=== PATIENT | male | born 1960 ===

== ENCOUNTER 2023-08-08 20:30 | Inpatient (IN) | payer OTHER, SELFPAY ==
--- NOTE | ~2023-08-08 | XR_ITS ---
EXAMINATION: XR CHEST CLINICAL INFORMATION: Fall. Pain. COMPARISON: None available. TECHNIQUE: Frontal view of the chest was obtained. FINDINGS: Lung volumes are low. The cardiomediastinal silhouette is within normal limits. There has been a previous median sternotomy. There is a linear left lung base opacity. The lungs are otherwise clear. The bony structures and soft tissues are unremarkable. XR/XR chest 1V IMPRESSION: Linear left lung base opacity possibly atelectasis versus minimal pleural fluid with atelectasis. No other significant abnormality seen.
--- NOTE | ~2023-08-08 | CT_ITS ---
EXAMINATION: CT HEAD WITHOUT CONTRAST CT CERVICAL SPINE WITHOUT CONTRAST CLINICAL INFORMATION: Fall. Pain. COMPARISON: None available. TECHNIQUE: Contiguous axial imaging was performed through the head and cervical spine without intravenous administration of contrast. Sagittal and coronal reformatted images also obtained. This CT examination was performed using dose optimization techniques as appropriate, variously including the following: *Automated exposure control *Adjustment of mA and/or kV according to patient size (this includes techniques or standardized protocols for targeted exams where dose is matched to indication/reason for exam; i.e. extremities or head) *Use of iterative reconstruction technique DLP: 742.33 and 479.37 mGy-cm FINDINGS: There is cerebral volume loss with prominence of the lateral and the third ventricles. The cortical sulci are widened appropriately. The fourth ventricle and basal cisterns are normally outlined. There is mild bilateral periventricular and central white matter image attenuation. There is no acute territorial defect, hemorrhage or midline shift. The extra-axial spaces are unremarkable. Calvarium: Intact. Maxillofacial sinuses and mastoids: Clear as visualized. Cervical spine: The alignment is within normal limits. There is an anterior plate and vertebral body screws at C3-C4-C5. There is minimal diffuse cervical disc degenerative change with minimal posterior osteophyte formation and mild diffuse facet osteoarthritic hypertrophic change without significant spinal canal and with scattered multilevel mild neuroforaminal narrowing. There is no fracture. The soft tissues are unremarkable. The visualized upper lung bergeron are clear. CT/CT cervical spine wo IV con IMPRESSION: Cerebral volume loss and mild bilateral periventricular and central white matter diminished attenuation which is nonspecific but likely to represent microvascular disease. No acute intracranial abnormality.
--- NOTE | ~2023-08-08 | CT_ITS ---
EXAMINATION: CT LUMBAR SPINE WITHOUT CONTRAST CLINICAL INFORMATION: Fall. Pain. COMPARISON: None available. TECHNIQUE: Contiguous axial noncontrast CT scan images of the lumbar spine obtained. Sagittal and coronal reformatted images also obtained. This CT examination was performed using dose optimization techniques as appropriate, variously including the following: *Automated exposure control *Adjustment of mA and/or kV according to patient size (this includes techniques or standardized protocols for targeted exams where dose is matched to indication/reason for exam; i.e. extremities or head) *Use of iterative reconstruction technique DLP; 624.21 mGy-cm FINDINGS: The alignment is within normal limits. There is L4-S1 posterior fusion with pedicle screws and posterior rods in place as well as L4-L5 and L5-S1 disc spacers in place. The hardware is intact. An interspinous spacer is also seen at L3-L4. There is moderate L1-L2, L2-L3 and L3-L4 disc degenerative change and loss of disc space, endplate change, mild posterior osteophytes and disc bulging and associated with diffuse facet osteoarthritic hypertrophic change with multilevel mild spinal canal and multilevel [id number] neuroforaminal narrowing. The soft tissues are unremarkable. CT/CT lumbar spine wo IV con IMPRESSION: Postoperative and degenerative change of the lumbar spine. No evidence for fracture or malalignment
--- NOTE | ~2023-08-08 | XR_ITS ---
EXAMINATION: XR CHEST CLINICAL INFORMATION: Fever. Tachycardia. COMPARISON: None available. TECHNIQUE: 2 views of the chest were obtained. FINDINGS: The cardiac and mediastinal contours are stable. There is a prosthetic heart valve and median sternotomy wires. The lungs are clear. There is blunting of the bilateral bilateral costophrenic angles, left greater than right, questionable for small pleural effusions. No pneumothorax. Degenerative changes of the spine. XR/XR chest 2V IMPRESSION: Question small bilateral pleural effusions.
[2023-08-08 20:39] VITALS: BP 146/85; PULSE 111; O2SAT 98
[2023-08-08 21:29] VITALS: BP 155/90; PULSE 114; RESP 18; TEMP 36.8; O2SAT 94; BMI 28.3
--- NOTE | 2023-08-08 21:43 | ED_ITS ---
HPI - General Adult General Chief complaint: Fall Stated complaint: LOWER BACK PAIN Time Seen by Provider: 08/08/23 23:47 Source: patient Mode of arrival: ambulatory Limitations: no limitations History of Present Illness HPI narrative: Patient is a 72 year old male with past medical history of diabetes, he is able to provide that he takes metformin and warfarin, it is unclear why he takes warfarin, he does not have a full list of his medications with him. who presents emergency department for evaluation after a fall. Reportedly he fell getting out of bed this morning states that he tripped over his cane resulting in him striking his head on a chair sustaining a superficial laceration over the bridge of the nose. He states that he passed out. It is unclear for how long, he states that he looked at the clock, and it was a while but cannot provide a specific time. He states that he had a hard time getting up on his own so he was on the floor for a long time until he was able to get himself up. He reports that he lives alone. Related Data Home Medications Medication Instructions Recorded Confirmed aspirin 81 mg chewable tablet 1 tab PO DAILY 08/09/23 08/09/23 atorvastatin 40 mg tablet 40 mg PO DAILY 08/09/23 08/09/23 divalproex 125 mg tablet,delayed 125 mg PO TID 08/09/23 08/09/23 release divalproex 250 mg tablet,delayed 250 mg PO TID 08/09/23 08/09/23 release fenofibrate nanocrystallized 145 145 mg PO DAILY 08/09/23 08/09/23 mg tablet gabapentin 300 mg capsule 900 mg PO TID 08/09/23 08/09/23 glipizide 5 mg tablet 5 mg PO DAILY@0730 08/09/23 08/09/23 levetiracetam 500 mg tablet 500 mg PO BID 08/09/23 08/09/23 melatonin 3 mg tablet 6 mg PO BEDTIME 08/09/23 08/09/23 metformin 1,000 mg tablet 1,000 mg PO BID 08/09/23 08/09/23 mirtazapine 7.5 mg tablet 7.5 mg PO BEDTIME 08/09/23 08/09/23 nystatin 100,000 unit/gram topical 1 appl topical BID 08/09/23 08/09/23 powder (Nystop) olanzapine 20 mg tablet 20 mg PO BEDTIME 08/09/23 08/09/23 trazodone 100 mg tablet 200 mg PO BEDTIME 08/09/23 08/09/23 warfarin 4 mg tablet 4 mg PO DAILY 08/09/23 08/09/23 Allergies Allergy/AdvReac Type Severity Reaction Status Date / Time No Known Allergies Allergy Verified 08/08/23 21:44 Review of Systems 2 Review of Systems: Yes all other systems are reviewed and are negative [facility] Past Medical History Attestation statement: The following information was validated with the patient. 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 Type 2 diabetes mellitus Social History Social History Smoked in Last 30 Days: No Use of substances other than those prescribed or required for medical reasons: No Advance Directives: No Advance Directives Information Provided: Yes Physical Exam ED Vital Signs: Vital Signs - 24 hr 08/08/23 21:29 08/08/23 22:42 08/08/23 23:45 Temperature 98.2 F 98.9 F 99.4 F Pulse Rate 114 H 100 101 H Respiratory Rate 18 18 18 Blood Pressure 155/90 H 172/90 H 156/80 H Pulse Oximetry 94 94 95 Oxygen Delivery Method Room Air Room Air Room Air 08/09/23 04:52 08/09/23 09:29 08/09/23 09:48 Temperature 99.3 F Pulse Rate 100 102 H 105 H Respiratory Rate 17 18 Blood Pressure 156/80 H 146/79 H 146/79 H Pulse Oximetry 95 94 Oxygen Delivery Method Room Air Room Air 08/09/23 11:58 08/09/23 14:26 Temperature Pulse Rate 92 96 Respiratory Rate 16 16 Blood Pressure 160/76 H 173/76 H Pulse Oximetry 95 95 Oxygen Delivery Method Room Air Room Air BMI result Body Mass Index 28.3 Appearance: Alert.?Oriented to person, place and time. No acute distress.?Normal affect. Head: Normocephalic, atraumatic Eyes: Pupils equal, round and reactive to light.? EOMI. No nystagmus. ENT: Pharynx normal.??No septal hematoma. Superficial abrasion over the nasal bridge. Neck: Normal inspection.? Neck supple.??No midline cervical spine tenderness, step-offs, deformities. CVS: Heart sounds normal. Normal heart rate and rhythm.? Pulses normal.?? Respiratory: No respiratory distress.? Lung sounds clear to auscultation bilaterally?? Abdomen: Soft and non-tender. Normoactive bowel sounds. Back: No midline thoracic or lumbar spine tenderness, step-offs, deformities Skin: Skin warm and dry.? Normal skin color.? Extremities: No lower extremity edema.? Neuro: Moves all extremities spontaneously. Sensation intact bilaterally. CN II- XII intact. No focal neuro deficits. Ambulates with normal steady gait. Course Course Course Narrative: RME performed by Jannet Dela Cruz PA-C. Patient is a 72 year old assigned male at presenting to the emergency department after falling out of bed. Patient states that he hit his head and had a positive loss of consciousness. Patient states that he is on blood thinners. Imaging ordered. Patient placed back in the waiting room pending room availability and results. Reevaluation(s) Reevaluation #1: CT of the head without acute intracranial abnormality, cervical spine without acute fracture or subluxation. Reevaluation #2: Patient placed in physician observation at 411. The indication for observation is that the patient needs more time to see PT/CM to help with fall concerns and safe DC. At this time the patient is well developed well nourished, lungs clear, CV RRR, abd nontender, neuro appears to be at baseline. Additional Reevaluation(s): 08/09/23--152--physician observation continued. Vital signs stable. Labs reviewed. Med recc with multiple medication duplicates, unable to obtain reliable med list from patient. Entered medications from completed med reconciliation by nursing staff & contacted pharmacy immediately to make aware/ request their assistance. Patient's nurse aware of duplicates and pharmacy involvement & will not administer any medications until med recc officially completed by pharmacy staff. -physical therapy recommended acute rehab. Case management evaluated patient and noted pressured speech. Patient with long psych history, not seen at our facility in the past. CARE consult requested. Will continue to monitor Medications Administered Generic Name Dose Route Start Last Admin Trade Name Freq PRN Reason Stop Dose Admin Aspirin 81 mg 08/09/23 09:15 08/09/23 10:50 Aspirin 81 Mg Tab.Chew PO 81 mg DAILY [place] Administration Atorvastatin Calcium 40 mg 08/09/23 09:15 08/09/23 10:50 Atorvastatin Calcium 40 Mg Tablet PO 40 mg DAILY [place] Administration Divalproex Sodium 125 mg 08/09/23 09:15 08/09/23 14:12 Divalproex Sodium Sprinkles 125 Mg Cap. PO 125 mg TID [place] Administration Divalproex Sodium 250 mg 08/09/23 15:00 08/09/23 14:12 Divalproex Sodium 250 Mg Tablet. PO 250 mg TID [place] Administration Gabapentin 900 mg 08/09/23 15:00 08/09/23 14:12 Gabapentin 300 Mg Capsule PO 900 mg TID [place] Administration Metformin HCl 1,000 mg 08/09/23 09:15 08/09/23 10:49 Metformin Hcl 1,000 Mg Tablet PO 1,000 mg BID [place] Administration Discontinued Medications Generic Name Dose Route Start Last Admin Trade Name Freq PRN Reason Stop Dose Admin Diphtheria/Tetanus/Acell Pertussis 0.5 ml 08/09/23 00:52 08/09/23 01:18 Diphth,Pertus(Acell),Tet Adult 0.5 Ml Syringe IM 08/09/23 00:53 0.5 ml .ONCE ONE Administration Medical Decision Making Medical Decision Making MDM Narrative: Patient is a 72-year-old male with past medical history of type 2 diabetes, anticoagulated on warfarin for reason unknown, presenting to the emergency department for evaluation after a fall with head strike and reported loss of consciousness as per HPI. At the time my examination overall he is well- appearing. He has no focal neurological deficits. It is difficult to determine his past medical history as he is unable to provide specific details, nor is he aware of all the medications he is taking. I am unable to obtain from him any contact information for family. He does appear to have some degree of developmental delay. He does report prolonged down time on the ground, will obtain this CBC, CMP, CPK, CT of the head cervical spine and additional lumbar spine as he was previously endorsing lower back pain although at this time he denies. Differential Diagnosis Differential Diagnoses: The differential diagnosis associated with the presentation includes (ICH, SDH, contusion, fracture, subluxation) Admission/Observation Consideration of admission/observation: Escalation of care including admission/observation considered (See narrative above and course narrative for further detail) Lab Data [facility] Lab Attestation statement: I reviewed the patient's lab results. 08/09/23 02:41 08/09/23 02:41 Labs: Lab Results 08/08/23 08/09/23 08/09/23 Range/Units 23:54 02:41 08:26 WBC 9.9 (4.8-10.8) X10*3/uL RBC 4.51 L (4.60-5.80) X10*6/uL Hgb 11.5 L (14.0-18.0) g/dl Hct 38.3 L (42.0-52.0) % MCV 84.9 (80.0-98.0) fL MCH 25.5 L (27.0-33.0) pg MCHC 30.0 L (31.0-36.0) g/dl RDW 17.2 H (11.0-16.0) % Plt Count 295 (160-400) X10*3/uL MPV 10.8 (9.4-12.4) fL Immature Gran % (Auto) 0.2 (0.0-0.4) % Neut % (Auto) 66.4 (45-73) % Lymph % (Auto) 23.8 (20-40) % [place] % (Auto) 8.4 (2-11) % Eos % (Auto) 0.6 (0-4) % Baso % (Auto) 0.6 (0-2) % Lymph # (Auto) 2.4 (1.2-4.9) X10*3/uL [place] # (Auto) 0.8 (0.1-1.2) X10*3/uL Eos # (Auto) 0.1 (0.0-0.4) X10*3/uL Baso # (Auto) 0.1 (0.0-0.2) X10*3/uL Abs Immat Gran (auto) 0.02 (0.00-0.03) X10*3/uL Absolute Neuts (auto) 6.6 (2.0-8.3) x10*3/uL Absolute Nucleated RBC 0.000 (0.0-0.012) X10*3/uL Nucleated RBC % (auto) 0.0 (0.0-0.2) /100WBC PT 13.3 (11.1-13.3) SEC INR 1.1 (0.9-1.1) Sodium 141 (135-145) mmol/L Potassium 3.4 (3.3-5.1) mmol/L Chloride 104 (96-108) mmol/L Carbon Dioxide 26 (22-29) mmol/L Anion Gap 14 (12-20) BUN 24 H (9-16) mg/dL Creatinine 0.79 (0.5-1.4) mg/dL Estim Creat Clear Calc 98.0 Estimated GFR > 60 POC Glucose 297 H (60-115) mg/dL Random Glucose 174 H (60-115) mg/dL Calcium 9.2 (8.4-10.2) mg/dL Magnesium 1.8 (1.6-2.6) mg/dL Total Bilirubin 0.5 (0.0-1.0) mg/dL AST 28 (5-37) U/L ALT 21 (0-40) U/L Alkaline Phosphatase 47 (39-117) U/L Total Creatine Kinase 346 H (38-174) U/L Total Protein 7.6 (6.5-8.0) g/dL Albumin 4.7 (3.5-5.0) g/dL Urine Color Yellow Urine Appearance Clear Urine pH 6.0 (5.0-9.0) Ur Specific [place] 1.025 (1.005-1.025) Urine Protein 30 (1+) H (Neg-Trace) mg/dL Urine Glucose (UA) 500 H (Negative) mg/dL Urine Ketones Trace (Negative) mg/dL Urine Blood Negative (Negative) Urine Nitrite Negative (Negative) Ur Leukocyte Esterase Negative (Negative) Urine RBC 0-2 (0-2) /HPF Urine WBC 0-5 (0-5) /HPF Ur Squamous Epith Cells 0-2 (0-2) /HPF Urine Bacteria None Seen (None Seen) Hyaline Casts 0-2 (0-2) /LPF COVID-19 ([facility]) Negative (Negative) COVID-19 Clin Com See Note 08/09/23 Range/Units 13:54 WBC (4.8-10.8) X10*3/uL RBC (4.60-5.80) X10*6/uL Hgb (14.0-18.0) g/dl Hct (42.0-52.0) % MCV (80.0-98.0) fL MCH (27.0-33.0) pg MCHC (31.0-36.0) g/dl RDW (11.0-16.0) % Plt Count (160-400) X10*3/uL MPV (9.4-12.4) fL Immature Gran % (Auto) (0.0-0.4) % Neut % (Auto) (45-73) % Lymph % (Auto) (20-40) % [place] % (Auto) (2-11) % Eos % (Auto) (0-4) % Baso % (Auto) (0-2) % Lymph # (Auto) (1.2-4.9) X10*3/uL [place] # (Auto) (0.1-1.2) X10*3/uL Eos # (Auto) (0.0-0.4) X10*3/uL Baso # (Auto) (0.0-0.2) X10*3/uL Abs Immat Gran (auto) (0.00-0.03) X10*3/uL Absolute Neuts (auto) (2.0-8.3) x10*3/uL Absolute Nucleated RBC (0.0-0.012) X10*3/uL Nucleated RBC % (auto) (0.0-0.2) /100WBC PT (11.1-13.3) SEC INR (0.9-1.1) Sodium (135-145) mmol/L Potassium (3.3-5.1) mmol/L Chloride (96-108) mmol/L Carbon Dioxide (22-29) mmol/L Anion Gap (12-20) BUN (9-16) mg/dL Creatinine (0.5-1.4) mg/dL Estim Creat Clear Calc Estimated GFR POC Glucose 181 H (60-115) mg/dL Random Glucose (60-115) mg/dL Calcium (8.4-10.2) mg/dL Magnesium (1.6-2.6) mg/dL Total Bilirubin (0.0-1.0) mg/dL AST (5-37) U/L ALT (0-40) U/L Alkaline Phosphatase (39-117) U/L Total Creatine Kinase (38-174) U/L Total Protein (6.5-8.0) g/dL Albumin (3.5-5.0) g/dL Urine Color Urine Appearance Urine pH (5.0-9.0) Ur Specific [place] (1.005-1.025) Urine Protein (Neg-Trace) mg/dL Urine Glucose (UA) (Negative) mg/dL Urine Ketones (Negative) mg/dL Urine Blood (Negative) Urine Nitrite (Negative) Ur Leukocyte Esterase (Negative) Urine RBC (0-2) /HPF Urine WBC (0-5) /HPF Ur Squamous Epith Cells (0-2) /HPF Urine Bacteria (None Seen) Hyaline Casts (0-2) /LPF COVID-19 ([facility]) (Negative) COVID-19 Clin Com Independent Interpretation I performed an independent interpretation of an: CT Scan Radiology Impression Discussion of test interpretation with radiology: I have reviewed the radiologist's reading. Radiologist Impression: CT/CT head/brain wo IV con IMPRESSION: Cerebral volume loss and mild bilateral periventricular and central white matter diminished attenuation which is nonspecific but likely to represent microvascular disease. No acute intracranial abnormality. CT/CT lumbar spine wo IV con IMPRESSION: Postoperative and degenerative change of the lumbar spine. No evidence for fracture or malalignment Discharge Plan Discharge Clinical Impression: Closed head injury with loss of consciousness of unknown duration Patient Disposition: Still a Patient Prescriptions: No Action atorvastatin 40 mg tablet 40 mg PO DAILY levetiracetam 500 mg tablet 500 mg PO BID melatonin 3 mg tablet 6 mg PO BEDTIME warfarin 4 mg tablet 4 mg PO DAILY trazodone 100 mg tablet 200 mg PO BEDTIME metformin 1,000 mg tablet 1,000 mg PO BID divalproex 125 mg tablet,delayed release (DR/EC) 125 mg PO TID Rx Instructions: TOTAL DOSE 375 MG TID gabapentin 300 mg capsule 900 mg PO TID aspirin 81 mg tablet,chewable 1 tab PO DAILY nystatin [Nystop] 100,000 unit/gram powder 1 appl topical BID olanzapine 20 mg tablet 20 mg PO BEDTIME glipizide 5 mg tablet 5 mg PO DAILY@0730 mirtazapine 7.5 mg tablet 7.5 mg PO BEDTIME fenofibrate nanocrystallized 145 mg tablet 145 mg PO DAILY divalproex 250 mg tablet,delayed release (DR/EC) 250 mg PO TID Rx Instructions: TOTAL DOSE 375 MG TID
[2023-08-08 22:42] VITALS: BP 172/90; PULSE 100; RESP 18; TEMP 37.2; O2SAT 94
--- NOTE | 2023-08-08 23:06 | PC.NURSE ---
Family Mary Lou Juanito [phone]
[2023-08-08 23:45] VITALS: BP 156/80; PULSE 101; RESP 18; TEMP 37.4; O2SAT 95
--- NOTE | 2023-08-09 00:09 | PC.NURSE ---
this rn assumed care of pt. pt reports falling out of bed this morning and hitting head on the chair next to his bed. pt reports he had LOC for unknown time. pt reports hitting back of head. pt noted to have scratch to the nose bridge. no visible injuries to the pt head. pt reports previously tripping over [employer] and no longer having big toe nail on the left foot. this rn wrapped toe with gauze. pt normal sinus on tele 57-60. fall precautions in place.
[2023-08-09 00:17] LABS: COVID-19 Test Negative (Negative); IDNOW Serial# 08D9AD1C
[2023-08-09] MEDS: Diphth,Pertus(ACell),Tet Adult 0.5 ML SYRINGE IM (01:18)
[2023-08-09 02:46] LABS: MANUAL DIFF FLAG NO
[2023-08-09 02:47] LABS: Basophils Absolute Auto 0.1 X10*3/uL (0.0-0.2); Basophils Percent Auto 0.6 % (0-2); Eosinophils Absolute Auto 0.1 X10*3/uL (0.0-0.4); Eosinophils Percent Auto 0.6 % (0-4); Hematocrit 38.3 % (42.0-52.0); Hemoglobin 11.5 g/dl (14.0-18.0); Imm Gran Abs Auto 0.02 X10*3/uL (0.00-0.03); Imm Gran Pct Auto 0.2 % (0.0-0.4); Lymphocytes Absolute Auto 2.4 X10*3/uL (1.2-4.9); Lymphocytes Percent Auto 23.8 % (20-40); Mean Corpuscular Hemoglobin 25.5 pg (27.0-33.0); Mean Corpuscular Volume 84.9 fL (80.0-98.0); Mean Platelet Volume 10.8 fL (9.4-12.4); Monocytes Absolute Auto 0.8 X10*3/uL (0.1-1.2); Monocytes Percent Auto 8.4 % (2-11); Neutrophils Absolute Auto 6.6 x10*3/uL (2.0-8.3); Neutrophils Percent Auto 66.4 % (45-73); Platelet Count 295 X10*3/uL (160-400); Red Blood Count 4.51 X10*6/uL (4.60-5.80); Red Cell Distribution Width 17.2 % (11.0-16.0); White Blood Count 9.9 X10*3/uL (4.8-10.8)
[2023-08-09 02:48] LABS: Appearance Urine Clear; Color Urine Yellow; Glucose Urine UA 500 mg/dL (Negative); Leukocyte Esterase Urine Negative (Negative); Nitrite Urine Negative (Negative); Specific Gravity - Urine 1.025 (1.005-1.025); UMIC TRIGGER UACC YES; Urine Blood Negative (Negative); Urine Ketones Trace mg/dL (Negative); Urine Protein 30 (1+) mg/dL (Neg-Trace)
[2023-08-09 02:54] LABS: INTERNATIONAL NORM RATIO 1.1 (0.9-1.1); Prothrombin Time 13.3 SEC (11.1-13.3)
[2023-08-09 03:04] LABS: Alanine Aminotransferase 21 U/L (0-40); Albumin Level 4.7 g/dL (3.5-5.0); Alkaline Phosphatase 47 U/L (39-117); Anion Gap 14 (12-20); Aspartate Amino Transferase 28 U/L (5-37); Bilirubin Total 0.5 mg/dL (0.0-1.0); Blood Urea Nitrogen 24 mg/dL (9-16); Calcium 9.2 mg/dL (8.4-10.2); Carbon Dioxide 26 mmol/L (22-29); Chloride 104 mmol/L (96-108); Estimated Glomerular Filt Rate > 60; Glucose Random 174 mg/dL (60-115); Magnesium 1.8 mg/dL (1.6-2.6); Potassium 3.4 mmol/L (3.3-5.1); Sodium 141 mmol/L (135-145); Total Protein 7.6 g/dL (6.5-8.0)
[2023-08-09 03:06] LABS: Bacteria Urine None Seen (None Seen); Hyaline Casts Urine 0-2 /LPF (0-2); RBC Urine 0-2 /HPF (0-2); Squamous Epithelial Cell Urine 0-2 /HPF (0-2); WBC Urine 0-5 /HPF (0-5)
[2023-08-09 04:52] VITALS: BP 156/80; PULSE 100; RESP 17; TEMP 37.4; O2SAT 95
--- NOTE | 2023-08-09 04:53 | PC.NURSE ---
pt resting in stretcher watching tv at this time. no acute distress. vss.
[2023-08-09 08:30] LABS: Glucose, Whole Blood 297 mg/dL (60-115)
[2023-08-09 09:29] VITALS: BP 146/79; PULSE 102; RESP 18; O2SAT 94
--- NOTE | 2023-08-09 09:40 | PC.NURSE ---
this RN resumed care of pt at this time. vss and up to date. nsr on the dental equipment mechanic. PT bedside assessing pt - this RN and PT attempted to ambulate w/ pt. pt had gait belt in place as well as walker and was unable to stand up/walk w/ steady gait. pt verbalizes feeling very dizzy to the point where he was not able to take a step forward. fresh/pads linen changed. pt repositioned to comfort. no sob/wob noted. respirations even and unlabored. call mac placed within reach.
[2023-08-09 09:48] VITALS: BP 146/79; PULSE 105
--- NOTE | 2023-08-09 09:57 | PHA.MEDREC ---
Pharmacy Consult ? Medication Reconciliation Pharmacy has completed the medication reconciliation.pt and spouse are unaware of pt current medications. med rec done using claim history. nurse had previously done med rec incorrectly and md had continued all meds. pharmacy did not verify the medications and an incident report will be filled out. the rn who did the med rec was notified of the situation and the potential risk of harm to the patient.
--- NOTE | 2023-08-09 10:00 | PC.NURSE ---
medication reconciliation completed per provider order. per previous RN - med rec was not completed overnight throughout stay. warehouse worker 2nd shift RN attempted to call pt's but had no success. ED provider nighat told this RN to complete med rec w/ all medications listed as we do not know what he takes/what he doesn't d/t pt being alert and oriented to self only. ED provider Nighat then called pharmacy to let them know that there were duplicates/multiple doses of different medications reconciled and that medication is currently being held and will not be administered until pharmacy verifies all medications. the pharmacist that the provider spoke w/ said that this was not an issue. this RN did not administer any medications as this RN knew that there were multiple doses of multiple medications. a separate pharmacist that did not speak w/ ED provider then called this RN to let this RN know that she was filing an incident report on the situation d/t potential harm. ED provider then spoke w/ pharmacy again stating that this RN did what she was told to do and that all medications were held until they were able to be administered safely.
[2023-08-09] MEDS: metFORMIN HCl 1,000 MG TABLET 1000 MG PO ×2 (10:49→21:38)
[2023-08-09] MEDS: Aspirin 81 MG TAB.CHEW PO (10:50)
[2023-08-09] MEDS: Atorvastatin Calcium 40 MG TABLET PO (10:50)
[2023-08-09] MEDS: Divalproex Sodium Sprinkles 125 MG CAP.DR.SPR PO ×3 (10:50→23:03)
--- NOTE | 2023-08-09 10:52 | PC.NURSE ---
delay in medication administration d/t unverified medications in med rec. medication now administered per provider order.
--- NOTE | 2023-08-09 11:49 | MHC.CM.ED ---
Addendum entered by Agatha Hemphill 08/09/23 14:23: Copy of med list obtained from [facility]. Patient has a history of Schizophrenia. Original Note: Received case maangement consult overnight. Patient came to the ER due to a fall from bed and back pain. Work up essentially negative. Physical therapy eval completed. Short term rehab is recommended. Attempted to meet with patient in regards to discharge planning. Patient is hard of hearing at baseline but was not able to simply answer questions. When asked if patient lives alone, Patient stated I used to live alone but there were bed bugs. And I've had issues at the [facility]. Unable to redirect patient to questions answered. Patient's sister, Mary Lou Solomon is listed as patient's sister. Copy of HCP obtained from [facility] shows Mary Lou is patient's HCP. Spoke with Mary Lou via telephone at [phone]. Mary Lou currently lives in [place]. Patient has a long standing mental health issues and multiple inpatient psych admissions at [facility]. Patient's last admission was around May. But patient was also inpatient there last , and . Patient is typically admitted inpatient psych for a couple of weeks until patient's medications could be regulated. Patient has never been to [facility] before. Mary Lou states patient is aware [facility] no longer has inpatient psych and that's most likely why he requested EMS take him to [place]. Mary Lou verifies patient lives in [place] alone, has [employer] through [facility] and has medication assistance through [facility]. Per Mary Lou, [facility] RN texted her to let her know patient did not take his Tuesday meds. Patient has a history of this prior to a psych issue [facility] has been notified of ER visit and will send a current med list. Nighat CLAROS made aware of need for crisis eval. Continue to [facility] for d/c needs.
[2023-08-09 11:58] VITALS: BP 160/76; PULSE 92; RESP 16; O2SAT 95
[2023-08-09 13:57] LABS: Glucose, Whole Blood 181 mg/dL (60-115)
[2023-08-09] MEDS: Gabapentin 300 MG CAPSULE 900 MG PO ×2 (14:12→21:38)
[2023-08-09] MEDS: Divalproex Sodium 250 MG TABLET.DR PO ×2 (14:12→21:50)
[2023-08-09 14:26] VITALS: BP 173/76; PULSE 96; RESP 16; O2SAT 95
--- NOTE | 2023-08-09 16:02 | PC.NURSE ---
pt brought over from [facility] to overflow bed 3, pt awake/alert-stating he is getting dressed to go home- pt got oob with his cane and wanted to ambulate to get ready to go home, pt was redirected and offered PO which he declined, bed alarm placed, call mac within reach, will continue to monitor
[2023-08-09] MEDS: Warfarin Sodium 4 MG TABLET PO (18:04)
[2023-08-09] MEDS: Melatonin 3 MG TABLET 6 MG PO (21:38)
[2023-08-09] MEDS: traZODone HCL 100 MG TABLET 200 MG PO (21:38)
[2023-08-09] MEDS: Mirtazapine 7.5 MG TABLET PO (21:38)
[2023-08-09] MEDS: OLANZapine 10 MG TABLET 20 MG PO (21:50)
[2023-08-09 22:38] LABS: Glucose, Whole Blood 184 mg/dL (60-115)
[2023-08-09 22:45] VITALS: BP 144/74; PULSE 101; RESP 15; TEMP 36.1; O2SAT 94
[2023-08-10] VITALS (7 sets, daily range): BP systolic 136–166; BP diastolic 69–93; PULSE 65–130; RESP 14–19; TEMP 35.9–38.1; O2SAT 92–96
--- NOTE | 2023-08-10 06:38 | MHC.EDTECH ---
pt taken to [facility] x2 this am. This technical proposal writer attempted to help pt oob when pt stated Ill kick your ass. pt redirected several times. Pt wants to call sister at 5 am , this technical proposal writer encouraged to call after 8 am
[2023-08-10] MEDS: Aspirin 81 MG TAB.CHEW PO (08:23)
[2023-08-10] MEDS: Divalproex Sodium 250 MG TABLET.DR PO ×2 (08:23→15:30)
[2023-08-10] MEDS: Fenofibrate 160 MG TABLET PO (08:23)
[2023-08-10] MEDS: glipiZIDE 5 MG TABLET PO (08:23)
[2023-08-10] MEDS: metFORMIN HCl 1,000 MG TABLET 1000 MG PO (08:23)
[2023-08-10] MEDS: Divalproex Sodium Sprinkles 125 MG CAP.DR.SPR PO ×2 (08:23→15:30)
[2023-08-10] MEDS: Atorvastatin Calcium 40 MG TABLET PO (08:23)
[2023-08-10] MEDS: Gabapentin 300 MG CAPSULE 900 MG PO ×2 (08:23→15:29)
--- NOTE | 2023-08-10 08:30 | PC.NURSE ---
PT IS A/O X 1 WITH CONFUSION. NO SOB/DONI NOTED. DENIES ANY PAIN/DISC. PT IS RESTLESS. PT KEEPS GETTING OUT OF HIS RECLINER WITHOUT HIS CANE/WALKER AND AMBULATING. REDIRECTION IS NOT ALWAYS EASY AT TIMES. NO FALL. WILL CONTINUE TO MONITOR.
--- NOTE | 2023-08-10 11:22 | MHC.CM.ED ---
Addendum entered by Agatha Hemphill 08/10/23 16:38: Insurance auth obtained. [facility] PASRR Level 2 obtained. Patient can leave 08/11 at 9am. Patient, Caro RN and Nighat CLAROS aware. Spoke with patient's sister Mary Lou made aware via telephone at [phone] and agreeable to discharge plan. Original Note: Patient remains in ER overflow. Patient has been cleared by the Care Team. Physical therapy is recommending STR. Anticipate patient will be difficult to place due to mental health history. Referral broadcasted in [facility]. [facility] is the only facility able to offer a bed at this time. They have been asked to go for insurance auth. Patient will need [facility] PASRR Level 2. T/W already submitted for this. Continue to monitor for d/c needs.
[2023-08-10 13:35] LABS: Ammonia 33 umol/L (13-55)
[2023-08-10 13:39] LABS: INTERNATIONAL NORM RATIO 1.1 (0.9-1.1)
[2023-08-10 13:41] LABS: Valproate 15.7 mcg/mL (50.0-100.0)
--- NOTE | 2023-08-10 13:46 | PC.NURSE ---
PT APPEARS TO BE HAVING SOME WITH EATING THE PARSEAN CHICKEN FOR LUNCH. PT WAS COUGHING. COUGHING HAS SUBSIDED AFTER BEING CUT UP BY PROFESSIONAL TUTOR.
--- NOTE | 2023-08-10 14:18 | PC.NURSE ---
DR. MARLIN NIETO AT BEDSIDE, PT AWARE OF PLAN OF CARE.
--- NOTE | 2023-08-10 14:24 | PM.PSYCN ---
History of Present Illness Date of Service: 08/10/2023 Chief Complaint: LOWER BACK PAIN Reason for Consult: psych decomp, meds consult HPI Narrative: 62 yo male with h/o schizophrenia, lives alone, brought in after fall with head trauma and LOC. plan to refer for STR. noted to be pressured and disorganized in the ED, psych consult requested for medications mgmt. pt seen in ED overflow, presents as pressured and tangential. [place], unable to engage with pt due to [place] and disorganization, unclear which was more of a hindrance. VPA level 15.7, essentially negligible, so pt has not been compliant with VPA and therefore likely not with zyprexa, either. discussion held with RN present, PRNs of olanzapine discussed until pt comes under better control re his mental health Sx. 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 sister, who is HCP, is trying to get pt into fdc and has been in touch with [facility] and [facility]. Diagnostics Vital Signs (24Hr): Vital Signs - 24 hr 08/09/23 14:26 08/09/23 22:45 08/10/23 05:51 Temperature 97 F 97.9 F Pulse Rate 96 101 H 65 Respiratory Rate 16 15 14 Blood Pressure 173/76 H 144/74 H 136/70 Pulse Oximetry 95 94 93 Oxygen Delivery Method Room Air Room Air Room Air 08/10/23 08:21 08/10/23 10:59 Temperature 96.7 F L Pulse Rate 122 H 102 H Respiratory Rate 17 19 Blood Pressure 146/73 H Pulse Oximetry 95 Oxygen Delivery Method Room Air BMI result Body Mass Index 28.3 Labs 08/09/23 02:41 08/09/23 02:41 Labs: Laboratory Results - last 48 hr 08/08/23 08/09/23 08/09/23 23:54 02:41 08:26 WBC 9.9 RBC 4.51 L Hgb 11.5 L Hct 38.3 L MCV 84.9 MCH 25.5 L MCHC 30.0 L RDW 17.2 H Plt Count 295 MPV 10.8 Immature Gran % (Auto) 0.2 Neut % (Auto) 66.4 Lymph % (Auto) 23.8 [place] % (Auto) 8.4 Eos % (Auto) 0.6 Baso % (Auto) 0.6 Lymph # (Auto) 2.4 [place] # (Auto) 0.8 Eos # (Auto) 0.1 Baso # (Auto) 0.1 Abs Immat Gran (auto) 0.02 Absolute Neuts (auto) 6.6 Absolute Nucleated RBC 0.000 Nucleated RBC % (auto) 0.0 PT 13.3 INR 1.1 Sodium 141 Potassium 3.4 Chloride 104 Carbon Dioxide 26 Anion Gap 14 BUN 24 H Creatinine 0.79 Estim Creat Clear Calc 98.0 Estimated GFR > 60 POC Glucose 297 H Random Glucose 174 H Calcium 9.2 Magnesium 1.8 Total Bilirubin 0.5 AST 28 ALT 21 Alkaline Phosphatase 47 Ammonia Total Creatine Kinase 346 H Total Protein 7.6 Albumin 4.7 Urine Color Yellow Urine Appearance Clear Urine pH 6.0 Ur Specific [place] 1.025 Urine Protein 30 (1+) H Urine Glucose (UA) 500 H Urine Ketones Trace Urine Blood Negative Urine Nitrite Negative Ur Leukocyte Esterase Negative Urine RBC 0-2 Urine WBC 0-5 Ur Squamous Epith Cells 0-2 Urine Bacteria None Seen Hyaline Casts 0-2 Valproic Acid COVID-19 ([facility]) Negative COVID-19 Clin Com See Note 08/09/23 08/09/23 08/10/23 13:54 21:53 13:17 WBC RBC Hgb Hct MCV MCH MCHC RDW Plt Count MPV Immature Gran % (Auto) Neut % (Auto) Lymph % (Auto) [place] % (Auto) Eos % (Auto) Baso % (Auto) Lymph # (Auto) [place] # (Auto) Eos # (Auto) Baso # (Auto) Abs Immat Gran (auto) Absolute Neuts (auto) Absolute Nucleated RBC Nucleated RBC % (auto) PT 13.0 INR 1.1 Sodium Potassium Chloride Carbon Dioxide Anion Gap BUN Creatinine Estim Creat Clear Calc Estimated GFR POC Glucose 181 H 184 H Random Glucose Calcium Magnesium Total Bilirubin AST ALT Alkaline Phosphatase Ammonia 33 Total Creatine Kinase Total Protein Albumin Urine Color Urine Appearance Urine pH Ur Specific [place] Urine Protein Urine Glucose (UA) Urine Ketones Urine Blood Urine Nitrite Ur Leukocyte Esterase Urine RBC Urine WBC Ur Squamous Epith Cells Urine Bacteria Hyaline Casts Valproic Acid 15.7 L COVID-19 ([facility]) COVID-19 Clin Com Imaging Radiology Impressions: ITS Impressions Cervical Spine CT 08/09/23 00:20 IMPRESSION: Cerebral volume loss and mild bilateral periventricular and central white matter diminished attenuation which is nonspecific but likely to represent microvascular disease. No acute intracranial abnormality. Head CT 08/09/23 00:20 IMPRESSION: Cerebral volume loss and mild bilateral periventricular and central white matter diminished attenuation which is nonspecific but likely to represent microvascular disease. No acute intracranial abnormality. Lumbar Spine CT 08/09/23 00:20 IMPRESSION: Postoperative and degenerative change of the lumbar spine. No evidence for fracture or malalignment Chest X-Ray 08/09/23 03:28 IMPRESSION: Linear left lung base opacity possibly atelectasis versus minimal pleural fluid with atelectasis. No other significant abnormality seen. Mental Status Exam Mental Status Exam Narrative: dressed in [facility] and tobogan hat, disheveled. cooperative to his ability. no PMA/PMR. speech pressured. thoughts tangential. affect constricted, normo-intense, labile (flat to tearful to giddy). mood/SI/HI/AVH unable to assess. Medications Medications Current Medications Aspirin (Aspirin 81 Mg Tab.Chew) 81 mg PO DAILY [facility] Last Admin: 08/10/23 08:23 Dose: 81 mg Atorvastatin Calcium (Atorvastatin Calcium 40 Mg Tablet) 40 mg PO DAILY [facility] Last Admin: 08/10/23 08:23 Dose: 40 mg Benzocaine (Throat Lozenge, Medicated Lozenge) 1 lozenge MUCOUS MEM Q2H PRN PRN Reason: Sore Throat Divalproex Sodium (Divalproex Sodium Sprinkles 125 Mg Cap) 125 mg PO TID [facility] Last Admin: 08/10/23 08:23 Dose: 125 mg Divalproex Sodium (Divalproex Sodium 250 Mg Tablet.Dr) 250 mg PO TID [facility] Last Admin: 08/10/23 08:23 Dose: 250 mg Fenofibrate (Fenofibrate 160 Mg Tablet) 160 mg PO DAILY [facility] Last Admin: 08/10/23 08:23 Dose: 160 mg Gabapentin (Gabapentin 300 Mg Capsule) 900 mg PO TID [facility] Last Admin: 08/10/23 08:23 Dose: 900 mg Glipizide (Glipizide 5 Mg Tablet) 5 mg PO DAILY@0730 [facility] Last Admin: 12/06/23 08:23 Dose: 5 mg Melatonin (Melatonin 3 Mg Tablet) 6 mg PO BEDTIME [facility] Last Admin: 08/09/23 21:38 Dose: 6 mg Metformin HCl (Metformin Hcl 1,000 Mg Tablet) 1,000 mg PO BID [facility] Last Admin: 08/10/23 08:23 Dose: 1,000 mg Mirtazapine (Mirtazapine 7.5 Mg Tablet) 7.5 mg PO BEDTIME [facility] Last Admin: 08/09/23 21:38 Dose: 7.5 mg Olanzapine (Olanzapine 10 Mg Tablet) 20 mg PO BEDTIME [facility] Last Admin: 08/09/23 21:50 Dose: 20 mg Trazodone HCl (Trazodone Hcl 100 Mg Tablet) 200 mg PO BEDTIME [facility] Last Admin: 08/09/23 21:38 Dose: 200 mg Warfarin Sodium (Warfarin Sodium 4 Mg Tablet) 4 mg PO DAILY@1800 [facility] Last Admin: 08/09/23 18:04 Dose: 4 mg Warfarin Sodium (Warfarin Sodium 6 Mg Tablet) 6 mg PO ONCE@1800 ONE Stop: 08/10/23 18:01 Allergies Allergies Allergy/AdvReac Type Severity Reaction Status Date / Time No Known Allergies Allergy Verified 08/08/23 21:44 Assessment & Plan Assessment & Plan (1) Schizoaffective disorder: Status: Acute Code(s): F25.9 - Schizoaffective disorder, unspecified Assessment and Plan: pt non-compliant with meds, decompensated. VPA level negligible. Plan restart/continue home medications. zyprexa 5 mg Q6H PRN agitation. to STR as per plan. Total time managing care of this patient today __55__ minutes.
[2023-08-10] MEDS: Throat Lozenge, Medicated LOZENGE 1 LOZENGE MUCOUS MEM (15:30)
[2023-08-10] MEDS: OLANZapine 5 MG TABLET PO (15:31)
--- NOTE | 2023-08-10 15:34 | PC.NURSE ---
PT HAS APPROACH THE RN STATION WITH HIS AZEEME NUMEROUS/MULTI REQUESTING TO CALL HIS BROTHER, NEPHEW. PT AT TIMES WANTS TO CALL THE POLICE TO LOCK PEOPLE UP FOR 150YRS . PT HAS ALSO TRIED TO COME INTO THE RN STATION ITSELF. PT HAS BEEN REDIRECTED NUMEROUS/MULTI TIMES. WILL CONTINUE TO MONITOR.
--- NOTE | 2023-08-10 16:33 | PC.NURSE ---
PT IS CONTINUOUSLY COMING UP TO THE RN STATION AND JUST PICKING UP THE PHONE. SWEARING AT STAFF I WANT TO CALL 911 .
[2023-08-10 16:34] LABS: Glucose, Whole Blood 170 mg/dL (60-115)
--- NOTE | 2023-08-10 16:37 | PC.NURSE ---
PT IS THREATENING AND STATED I WILL BEAT THE SHIT OUT OF YOU AND FUCK YOU UP . PT IS VERY DISRESPECTFUL. SECURITY IS AT BEDSIDE TRYING TO REDIRECT PATIENT.
--- NOTE | 2023-08-10 17:21 | ECG_ITS ---
Test Reason : TACHYCARDIA Blood Pressure : / mmHG Vent. Rate : 124 BPM Atrial Rate : 124 BPM P-R Int : 136 ms QRS Dur : 092 ms QT Int : 314 ms P-R-T Axes : 065 082 -77 degrees QTc Int : 451 ms Sinus tachycardia Possible Left atrial enlargement ST & T wave abnormality, consider inferolateral ischemia Abnormal ECG No previous ECGs available Referred By: Zhanna Navas Electronically Signed By:TAMIKO RUST
--- NOTE | 2023-08-10 17:24 | PC.NURSE ---
PT IS EATING SUPPER SITTING UP IN RECLINER. VS 147/69-130. PT DENIES ANY CHEST PAIN/SOB. PT IS C/O 06/14 HEADACHE. MLP (ROBERT) AWARE.
--- NOTE | 2023-08-10 17:36 | PC.NURSE ---
PT SAT UPRIGHT IN RECLINER WITH SUPPER. 1/4 THROUGH HIS MEAL OF CHOPPED UP PORK CHOP WITH CORN AND GREEN BEANS PT STATED INCREASE COUGHING. PT WAS DIRECTED TO STOP EATING AND WAS ABLE TO EXPEL MOST OF THE FOOD OUT OF HIS MOUTH. NO SUCTIONING WAS NEEDED. SEE NEW ORDER FOR SWALLOW EVAL.
--- NOTE | 2023-08-10 17:45 | MHC.EDTECH ---
Patient was given dinner ,ate 20 % of meal meal ,Pt stared to cough and choke on food ,Patient heart rate is still high ekg and was read by Provider , blood drawn and sent to lab ,Dottie diet order ,but Patient refused .
[2023-08-10 17:57] LABS: MANUAL DIFF FLAG NO
[2023-08-10 18:00] LABS: Basophils Absolute Auto 0.1 X10*3/uL (0.0-0.2); Basophils Percent Auto 0.4 % (0-2); Eosinophils Absolute Auto 0.1 X10*3/uL (0.0-0.4); Eosinophils Percent Auto 0.5 % (0-4); Hemoglobin 11.9 g/dl (14.0-18.0); Imm Gran Abs Auto 0.02 X10*3/uL (0.00-0.03); Imm Gran Pct Auto 0.2 % (0.0-0.4); Lymphocytes Absolute Auto 1.6 X10*3/uL (1.2-4.9); Lymphocytes Percent Auto 13.9 % (20-40); Mean Corpuscular HGB Conc 30.5 g/dl (31.0-36.0); Mean Corpuscular Hemoglobin 25.8 pg (27.0-33.0); Mean Corpuscular Volume 84.4 fL (80.0-98.0); Mean Platelet Volume 10.6 fL (9.4-12.4); Monocytes Absolute Auto 0.9 X10*3/uL (0.1-1.2); Monocytes Percent Auto 7.3 % (2-11); Neutrophils Absolute Auto 9.1 x10*3/uL (2.0-8.3); Neutrophils Percent Auto 77.7 % (45-73); Platelet Count 287 X10*3/uL (160-400); Red Blood Count 4.62 X10*6/uL (4.60-5.80); Red Cell Distribution Width 17.1 % (11.0-16.0); White Blood Count 11.7 X10*3/uL (4.8-10.8)
[2023-08-10] MEDS: Warfarin Sodium 6 MG TABLET PO (18:08)
[2023-08-10 18:21] LABS: Anion Gap 19 (12-20); Blood Urea Nitrogen 20 mg/dL (9-16); Calcium 9.7 mg/dL (8.4-10.2); Carbon Dioxide 22 mmol/L (22-29); Chloride 102 mmol/L (96-108); Estimated Glomerular Filt Rate > 60; Glucose Random 228 mg/dL (60-115); Potassium 3.8 mmol/L (3.3-5.1); Sodium 139 mmol/L (135-145)
--- NOTE | 2023-08-10 18:57 | MHC.EDTECH ---
Patient was re vital ,heart rate is still high ,Patient also has a fever ,RN Aware .
[2023-08-10] MEDS: Acetaminophen 325 MG TABLET 975 MG PO (18:58)
[2023-08-10] MEDS: 0.9 % Sodium Chloride 1,000 ML 999 ML IV ×2 (19:00→20:53)
[2023-08-10 20:35] LABS: Troponin-I High Sensitivity 21.5 ng/L (<3.5-35.0)
[2023-08-10] MEDS: cefTRIAXone sodium 1 GM in 0.9 % Sodium Chloride 50 ML IV (20:54)
--- NOTE | 2023-08-10 22:09 | PM.IMHP ---
History of Present Illness Date of Service: 08/10/23 Attending physician on admission: Elmo Lopez Chief Complaint: aggitation, fevers 62-year-old male with history of xnh-mgrarjy-kmsahejpd type 2 diabetes, schizoaffective disorder, unspecified seizure disorder, mild cognitive impairment, mild intellectual disabilities, hyperlipidemia, hypertension, GERD, s/p AVR with mechanical valve anticoagulated with Coumadin presented to the ED 2 days ago after falling out of bed, reporting to ED staff that he passed out . There was strong suspicion that patient was not taking his medication as his sister is out of state and his GRANITE SETTER is sick with COVID-19. He had been placed in observation awaiting placement to [facility]. Initial workup in the ED included head CT which was negative for any acute intracranial abnormality but did show cerebral volume loss and mild bilateral periventricular and central white matter diminished attenuation . Cervical spine CT negative for any acute fracture, subluxation, dislocation. Lumbar spine CT negative for any acute fracture malalignment. Chest x-ray showed linear left lung base opacity possibly atelectasis versus minimal pleural fluid with atelectasis. However earlier today developed acute agitation, was swearing and being aggressive. Required p.r.n. Zyprexa. He was also noted to be tachycardic and hypertensive. He was also febrile to 100.6 rectally. Per ED provider, patient was observed to briefly choke on his dinner last night. He was evaluated by Psychiatry due to the acute agitation which was felt to be secondary to noncompliance with medications. Recommendation was to resume all home medications and use 5 mg Zyprexa p.r.n.. However given fever, tachycardia, further workup was obtained and patient was recommended for admission. He has a leukocytosis of 11.7. Stable normocytic anemia. INR of 1.1, goal 2.5-3.5, likely secondary to noncompliance with Coumadin. Depakote levels also noted to be subtherapeutic at 15.7 again likely secondary to noncompliance. Renal function and electrolyte levels are normal. Glucose 170. Initial lactic acid 3.0. Ammonia level 33. Total CK 3377. Initial troponin 20, repeat 21.5. He is negative for influenza, RSV, COVID-19. Chest x-ray shows questionable small bilateral pleural effusions, on my review x-rays consistent with imaging from yesterday. UA is pending. While in observation, patient has ripped been restarted on all home medications. He has also been given 2 L IV NS, 1 g ceftriaxone. Patient is unable to provide meaningful history at the time of examination. History obtained from ED provider and ED provider note. Review of Systems Review of Systems: Yes Unobtainable due to mental condition and Unobtainable due to mental status PMFSH Medical History Mild intellectual disability Mild cognitive impairment Chronic anemia Asthma Seizure disorder Hypertension Hyperlipidemia Schizoaffective disorder Current use of group home anticoagulation Type 2 diabetes mellitus Surgical History H/O mechanical aortic valve replacement Social History Smoked in Last 30 Days: No Use of substances other than those prescribed or required for medical reasons: No Advance Directives: No Advance Directives Information Provided: Yes Healthcare Proxy: Yes (Sister Mary Lou Solomon (lives 10 minutes away, but currently in [place])) Guardian: No Meds Allergies Allergy/AdvReac Type Severity Reaction Status Date / Time No Known Allergies Allergy Verified 08/08/23 21:44 Active Medications: Current Medications Aspirin (Aspirin 81 Mg Tab.Chew) 81 mg PO DAILY [facility] Last Admin: 08/10/23 08:23 Dose: 81 mg Atorvastatin Calcium (Atorvastatin Calcium 40 Mg Tablet) 40 mg PO DAILY [facility] Last Admin: 08/10/23 08:23 Dose: 40 mg Benzocaine (Throat Lozenge, Medicated Lozenge) 1 lozenge MUCOUS MEM Q2H PRN PRN Reason: Sore Throat Last Admin: 08/10/23 15:30 Dose: 1 lozenge Divalproex Sodium (Divalproex Sodium Sprinkles 125 Mg Cap.) 125 mg PO TID [facility] Last Admin: 08/10/23 15:30 Dose: 125 mg Divalproex Sodium (Divalproex Sodium 250 Mg Tablet.Dr) 250 mg PO TID [facility] Last Admin: 08/10/23 15:30 Dose: 250 mg Fenofibrate (Fenofibrate 160 Mg Tablet) 160 mg PO DAILY [facility] Last Admin: 08/10/23 08:23 Dose: 160 mg Gabapentin (Gabapentin 300 Mg Capsule) 900 mg PO TID [facility] Last Admin: 08/10/23 15:29 Dose: 900 mg Glipizide (Glipizide 5 Mg Tablet) 5 mg PO DAILY@0730 [facility] Last Admin: 08/10/23 08:23 Dose: 5 mg Melatonin (Melatonin 3 Mg Tablet) 6 mg PO BEDTIME [facility] Last Admin: 08/09/23 21:38 Dose: 6 mg Metformin HCl (Metformin Hcl 1,000 Mg Tablet) 1,000 mg PO BID [facility] Last Admin: 08/10/23 08:23 Dose: 1,000 mg Mirtazapine (Mirtazapine 7.5 Mg Tablet) 7.5 mg PO BEDTIME [facility] Last Admin: 08/09/23 21:38 Dose: 7.5 mg Olanzapine (Olanzapine 10 Mg Tablet) 20 mg PO BEDTIME [facility] Last Admin: 08/09/23 21:50 Dose: 20 mg Olanzapine (Olanzapine 5 Mg Tablet) 5 mg PO Q6H PRN PRN Reason: agitation Last Admin: 08/10/23 15:31 Dose: 5 mg Trazodone HCl (Trazodone Hcl 100 Mg Tablet) 200 mg PO BEDTIME [facility] Last Admin: 08/09/23 21:38 Dose: 200 mg Warfarin Sodium (Warfarin Sodium 4 Mg Tablet) 4 mg PO DAILY@1800 [facility] Last Admin: 08/09/23 18:04 Dose: 4 mg Home Medications Medication Instructions Recorded Confirmed Last Taken Type aspirin 81 mg chewable tablet 1 tab PO DAILY 08/09/23 08/09/23 Unknown History atorvastatin 40 mg tablet 40 mg PO DAILY 08/09/23 08/09/23 Unknown History divalproex 125 mg tablet,delayed 125 mg PO TID 08/09/23 08/09/23 Unknown History release divalproex 250 mg tablet,delayed 250 mg PO TID 08/09/23 08/09/23 Unknown History release fenofibrate nanocrystallized 145 145 mg PO DAILY 08/09/23 08/09/23 Unknown History mg tablet gabapentin 300 mg capsule 900 mg PO TID 08/09/23 08/09/23 Unknown History glipizide 5 mg tablet 5 mg PO DAILY@0730 08/09/23 08/09/23 Unknown History levetiracetam 500 mg tablet 500 mg PO BID 08/09/23 08/09/23 Unknown History melatonin 3 mg tablet 6 mg PO BEDTIME 08/09/23 08/09/23 Unknown History metformin 1,000 mg tablet 1,000 mg PO BID 08/09/23 08/09/23 Unknown History mirtazapine 7.5 mg tablet 7.5 mg PO BEDTIME 08/09/23 08/09/23 Unknown History nystatin 100,000 unit/gram topical 1 appl topical BID 08/09/23 08/09/23 Unknown History powder (Nystop) olanzapine 20 mg tablet 20 mg PO BEDTIME 08/09/23 08/09/23 Unknown History trazodone 100 mg tablet 200 mg PO BEDTIME 08/09/23 08/09/23 Unknown History warfarin 4 mg tablet 4 mg PO DAILY 08/09/23 08/09/23 Unknown History Physical Exam Vital Signs and Narrative: Vital Signs: Last Vital Signs Temp 100.6 F H 08/10/23 18:58 Pulse 118 H 08/10/23 18:58 Resp 18 08/10/23 18:58 BP 141/82 H 08/10/23 18:58 Pulse Ox 92 08/10/23 18:58 O2 Del Method Room Air 08/10/23 18:58 BMI result Body Mass Index 28.3 Constitutional - Awake and Alert, No apparent distress Eyes - PERRLA, EOMI Cardiovascular - S1S2, RRR, No edema Respiratory - Normal lung expansion, Normal respiratory effort, No respiratory distress, CTA bilaterally Gastrointestinal - NT / ND; +BS; No rebound or guarding Extremities - no calf tenderness bilaterally, no swelling Skin - Warm/Dry Neurological - Alert & disoriented, unable to follow commands, disorganized tangential speech pattern, unable to participate in neuro exam secondary to mental status however EOM appear to be intact, no facial droop observed. Moving all extremities Results Labs 08/10/23 17:48 08/10/23 17:48 Labs: Laboratory Results - last 24 hr 08/09/23 08/10/23 08/10/23 21:53 13:17 16:22 MCV MCH MCHC RDW Plt Count MPV Immature Gran % (Auto) Neut % (Auto) Lymph % (Auto) [place] % (Auto) Eos % (Auto) Baso % (Auto) Lymph # (Auto) [place] # (Auto) Eos # (Auto) Baso # (Auto) Abs Immat Gran (auto) Absolute Neuts (auto) Absolute Nucleated RBC Nucleated RBC % (auto) PT 13.0 INR 1.1 Anion Gap Estim Creat Clear Calc Estimated GFR POC Glucose 184 H 170 H Random Glucose Lactic Acid Calcium Ammonia 33 Total Creatine Kinase Valproic Acid 15.7 L 08/10/23 08/10/23 17:48 20:09 MCV 84.4 MCH 25.8 L MCHC 30.5 L RDW 17.1 H Plt Count 287 MPV 10.6 Immature Gran % (Auto) 0.2 Neut % (Auto) 77.7 H Lymph % (Auto) 13.9 L [place] % (Auto) 7.3 Eos % (Auto) 0.5 Baso % (Auto) 0.4 Lymph # (Auto) 1.6 [place] # (Auto) 0.9 Eos # (Auto) 0.1 Baso # (Auto) 0.1 Abs Immat Gran (auto) 0.02 Absolute Neuts (auto) 9.1 H Absolute Nucleated RBC 0.000 Nucleated RBC % (auto) 0.0 PT INR Anion Gap 19 Estim Creat Clear Calc 107.0 Estimated GFR > 60 POC Glucose Random Glucose 228 H Lactic Acid 3.0 H* Calcium 9.7 Ammonia Total Creatine Kinase 3377 H Valproic Acid Imaging Radiologist's Impressions: Impressions Chest X-Ray 08/10/23 19:45 IMPRESSION: Question small bilateral pleural effusions. Assessment and Plan (1) Fever: Status: Acute (2) Encephalopathy: Status: Acute (3) Aspiration pneumonia: Status: Acute (4) Rhabdomyolysis: Status: Acute Plan 62-year-old male with history of kpn-lyeilhb-skltkwnaq type 2 diabetes, schizoaffective disorder, unspecified seizure disorder, mild cognitive impairment, mild intellectual disabilities, hyperlipidemia, hypertension, GERD, s/p AVR with mechanical valve anticoagulated with Coumadin admitted for fevers, acute encephalopathy. 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 evaluation #Fever -likely r/t aspiration pneumonia -however could also be r/t seizure as well -UA pending # possible seizure -patient noted to be acutely agitated and altered this afternoon and on exam -?fall out of bed and passing out on day of arrival r/t possible seizure -has been noncompliant with seizure medications -Depakote level subtherapeutic -resume home doses of Depakote and Keppra -load patient with 1000 mg IV Keppra -seizure precautions -monitor on telemetry -neuro consult #Acute rhabdomyolysis -CK >3300, yesterday was 300 -?related to infection vs possible seizure -continue ivf -renal function normal -Follow ck # s/p AVR with mechanical valve -resume Coumadin, INR subtherapeutic at 1.1 -bridge with therapeutic Lovenox x1 -follow INR daily # iot-jmoeywq-tpbaigcxs type 2 diabetes -POC glucose -diabetic diet -Humalog on sliding scale -hold glipizide and metformin # hypertension -blood pressure reasonably controlled -in that currently on any antihypertensive agents, monitor BP # hyperlipidemia -continue statin # diabetic polyneuropathy -continue gabapentin DVT prophylaxis- Lovenox/Coumadin Full code Patient requires inpatient stay at least 2 midnights for management of acute encephalopathy likely secondary to aspiration pneumonia though additional workup to rule out additional causes of encephalopathy are still pending. Patient requires resumption of all home medications following long period of noncompliance. Eventual placement to [facility] Stroke Does the patient have a stroke diagnosis?: No VTE Prior VTE?: No VTE Risk Level:: Medical - moderate - high VTE Device Contraindication: Treatment Not Indicated VTE Drug Contraindication: N/A - Med Ordered
[2023-08-10 22:11] LABS: Reflex Lactate? Lactic Acid Added
[2023-08-10 22:30] LABS: Influenza A PCR NEGATIVE (Negative); Influenza B PCR NEGATIVE (Negative); Resp Syncy Virus RNA Qual PCR NEGATIVE (Negative); SARS COV2 PCR INHOUSE NEGATIVE (Negative)
--- NOTE | 2023-08-10 23:04 | PC.NURSE ---
Pt is at risk for aspiration. Messaged hospitalist for advice on PO medications.
--- NOTE | 2023-08-10 23:46 | MHC.EDTECH ---
[place] [facility]. placed by [facility] at this time.
[2023-08-11] MEDS: Melatonin 3 MG TABLET 6 MG PO ×2 (00:21→21:41)
[2023-08-11] MEDS: traZODone HCL 100 MG TABLET 200 MG PO ×2 (00:21→21:41)
[2023-08-11] MEDS: Divalproex Sodium Sprinkles 125 MG CAP.DR.SPR PO ×4 (00:21→21:41)
[2023-08-11] MEDS: Gabapentin 300 MG CAPSULE 900 MG PO ×4 (00:21→21:41)
[2023-08-11] MEDS: Mirtazapine 7.5 MG TABLET PO ×2 (00:21→21:41)
[2023-08-11] MEDS: Divalproex Sodium 250 MG TABLET.DR PO ×4 (00:21→21:41)
[2023-08-11] MEDS: levETIRAcetam in NaCl (iso-os) 1,000 MG/100 ML PIGGYBACK 400 MG IV (00:22)
[2023-08-11] MEDS: 0.9 % Sodium Chloride Flush 3 ML SYRINGE IVFLUSH ×2 (00:28→11:32)
[2023-08-11] MEDS: Enoxaparin Sodium 100 MG/ML SYRINGE 90 MG SUBCUT (00:28)
[2023-08-11] MEDS: OLANZapine 10 MG TABLET 20 MG PO ×2 (00:59→21:41)
[2023-08-11] MEDS: 0.9 % Sodium Chloride 1,000 ML 100 ML IVCONT ×3 (00:59→21:48)
[2023-08-11] MEDS: Ampicillin Sodium/Sulbactam Na 3 GM in 0.9 % Sodium Chloride 100 ML IV ×5 (01:04→23:54)
--- NOTE | 2023-08-11 01:30 | PC.NURSE ---
Assumed care of pt at approximately 2315. Pt moved from [facility] bed to monitored bed. Pt in need of 2100 meds, confirmed with md patient can have PO meds with water. This RN obtained meds and performed Nurse swallow eval. Pt passed RN eval, tolerated PO meds and water well at this time. Initiated seizure precautions and requested phlebotomy draw 2200 lactic per orders. Pt alert and oriented to self, rambling scattered thoughts. afebrile,SR 90's on tele, 94% on 2L nasal cannula. Pt found to be incontinent of urine, completed bed change, pt now clean and dry, [place] catheter applied. Skin:Buttocks red blanchable, scattered patchy dry areas to body.
--- NOTE | 2023-08-11 04:54 | PC.NURSE ---
pt resting comfortably throughout the night. eyes closed, breathing even and unlabored. no apparent distress at this time
--- NOTE | 2023-08-11 05:45 | PC.NURSE ---
lab unable to obtain labs at this time. states someone else will be down to try again
[2023-08-11 05:52] VITALS: BP 122/58; PULSE 88; RESP 16; O2SAT 96
[2023-08-11 05:59] LABS: Glucose, Whole Blood 192 mg/dL (60-115)
[2023-08-11 09:29] VITALS: BP 140/63; PULSE 93; RESP 20; TEMP 36.8; O2SAT 95
[2023-08-11 09:44] LABS: MANUAL DIFF FLAG NO
[2023-08-11 09:45] LABS: Basophils Percent Auto 0.4 % (0-2); Eosinophils Absolute Auto 0.1 X10*3/uL (0.0-0.4); Eosinophils Percent Auto 1.3 % (0-4); Hemoglobin 11.2 g/dl (14.0-18.0); Imm Gran Abs Auto 0.02 X10*3/uL (0.00-0.03); Imm Gran Pct Auto 0.3 % (0.0-0.4); Lymphocytes Absolute Auto 1.3 X10*3/uL (1.2-4.9); Lymphocytes Percent Auto 18.6 % (20-40); Mean Corpuscular HGB Conc 30.3 g/dl (31.0-36.0); Mean Corpuscular Hemoglobin 25.5 pg (27.0-33.0); Mean Corpuscular Volume 84.1 fL (80.0-98.0); Mean Platelet Volume 10.3 fL (9.4-12.4); Monocytes Absolute Auto 0.6 X10*3/uL (0.1-1.2); Monocytes Percent Auto 8.1 % (2-11); Neutrophils Absolute Auto 4.9 x10*3/uL (2.0-8.3); Neutrophils Percent Auto 71.3 % (45-73); Platelet Count 212 X10*3/uL (160-400); Red Cell Distribution Width 17.1 % (11.0-16.0); White Blood Count 6.9 X10*3/uL (4.8-10.8)
[2023-08-11 09:53] LABS: INTERNATIONAL NORM RATIO 1.4 (0.9-1.1); Prothrombin Time 17.4 SEC (11.1-13.3)
[2023-08-11 09:56] LABS: Appearance Urine Clear; Color Urine Yellow; Glucose Urine UA 250 mg/dL (Negative); Leukocyte Esterase Urine Negative (Negative); Nitrite Urine Negative (Negative); Urine Blood Negative (Negative); Urine Ketones Trace mg/dL (Negative); Urine Protein Negative (Neg-Trace)
[2023-08-11 10:00] LABS: Anion Gap 14 (12-20); Blood Urea Nitrogen 13 mg/dL (9-16); Calcium 8.3 mg/dL (8.4-10.2); Carbon Dioxide 26 mmol/L (22-29); Chloride 108 mmol/L (96-108); Creatinine Clr Calc Pharmacy 128.7; Estimated Glomerular Filt Rate > 60; Glucose Random 210 mg/dL (60-115); Sodium 144 mmol/L (135-145)
--- NOTE | 2023-08-11 11:31 | MHC.SL.SWA ---
Speech Pathologist Impression: Risk of Aspiration Due to: History of Pneumonia Reduced Cognition Dysphasia Diet Status: Liquid Consistency and Strategies for Safe Swallow: Liquid Intake Recommendation: Thin Liquid Intake Strategies: Small Sips Solid Food Consistency: Dietary Recommendations: Chopped/Advanced (NDD3) Additional Modifications to Solid Foods: Due to impulsivity, poor self monitoring, and compulsive talking, patient will need supervision during meals with cuing to reduce risk of aspiration due to these behaviors. Recommend no mixed consistencies, no straws. Oral Medication Intake: Whole with Puree Please contact the pharmacy regarding appropriate crushable or liquid drug formulations that are available whenever modified delivery is recommended. Compensatory Strategies and Precautions to be Taken for Safe Swallow: Sitting Upright (90 deg) Liquids from Cup Small Bites and Sips Alternate Liquids/Solids Supervision While Eating and Drinking for Safe Swallow: Total Supervision (1:1) Foods to Avoid: Mixed consistencies Swallowing Recommended Treatments: Compens. Strategy Educat. Recommendation for Speech: Inpatient Speech Therapy Comment: Patient presents with swallow function mostly wfl, but presents with risk for aspiration secondary to reduced cognition, poor self monitoring, impulsivity, compulsive talking. Recommend UPGRADE diet from NPO to Chopped/Advanced to assure manageable consistency of precut food, thin liquids, pills whole in puree or liquid as preferred by patient. Recommend avoid mixed consistencies (cereal and milk, e.g.). Patient will need supervision during meals due to impulsive behaviors putting him at risk for aspiration. Encourage/cue patient to focus on meal and cease talking when eating. Assure that patient is seated up right and not attempting to eat while reclined. , RD notified of recommendations by secure sharlene, RN in person. RED CROSS WORKER will f/u 1-2X for toleration. Frequency/Duration: f/u 1-2 X Date Range for Service Req: Timeline to reassess: Supervising Producer Clinican/Clinical Fellow: No Supervisory Statement: I have reviewed and agree with the student/clinical fellow's documentation: N/A Speech Language Pathologist: Pina San M.A., [facility]-RED CROSS WORK[employer]
[2023-08-11] MEDS: Aspirin 81 MG TAB.CHEW PO (11:32)
[2023-08-11] MEDS: Enoxaparin Sodium 120 MG/0.8 ML SYRINGE SUBCUT (11:32)
[2023-08-11] MEDS: Fenofibrate 160 MG TABLET PO (11:33)
[2023-08-11 11:36] VITALS: BP 122/68; PULSE 100; RESP 20; TEMP 36.3; O2SAT 98
[2023-08-11 12:12] LABS: Glucose, Whole Blood 192 mg/dL (60-115)
[2023-08-11 13:01] LABS: Estimated Average Glucose 140 mg/dL; Hemoglobin A1c % 6.5 % (<6.0)
--- NOTE | 2023-08-11 13:56 | HO.PM.IMPN ---
Subjective Subjective Date of Service: 08/11/23 Interval History: unable to get any meaningful hx from pt- disorganized thought/speech Review of Systems Review of Systems: Yes Unobtainable due to mental status Physical Exam Vital Signs: Vital Signs: Last Vital Signs Temp 97.4 F 08/11/23 11:36 Pulse 100 08/11/23 11:36 Resp 20 08/11/23 11:36 BP 122/68 08/11/23 11:36 Pulse Ox 98 08/11/23 11:36 O2 Del Method Nasal Cannula 08/11/23 11:36 O2 Flow Rate 97 08/11/23 11:36 BMI result Body Mass Index 28.3 Gen: in no acute distress HEENT: sclera anicteric, moist mucus membranes Neck: supple Lungs: clear to auscultation bilaterally Heart: regular rate and rhythm, no murmurs Abd: soft, non-tender, non-distended Ext: no edema Skin: warm/well-perfused Neuro: alert, unable to assess orientation Psych: rambling/disorganized speech, impaired insight Objective Data Active Medications Acetaminophen (Acetaminophen 325 Mg Tablet) 650 mg PO Q6H PRN PRN Reason: Pain, Mild (Pain Scale 1-3) Aspirin (Aspirin 81 Mg Tab.Chew) 81 mg PO DAILY [facility] Last Admin: 08/11/23 11:32 Dose: 81 mg Documented By: LAURA Atorvastatin Calcium (Atorvastatin Calcium 40 Mg Tablet) 40 mg PO DAILY [facility] Last Admin: 08/10/23 08:23 Dose: 40 mg Documented By: RITO Benzocaine (Throat Lozenge, Medicated Lozenge) 1 lozenge MUCOUS MEM Q2H PRN PRN Reason: Sore Throat Last Admin: 08/10/23 15:30 Dose: 1 lozenge Documented By: RITO Dextrose (Dextrose 50 % 25 Gm/50 Ml Syringe) 25 gm IVPUSH Q15M PRN; Protocol PRN Reason: per Hypoglycemia Standing Ord. Divalproex Sodium (Divalproex Sodium Sprinkles 125 Mg Cap.) 125 mg PO TID [facility] Last Admin: 08/11/23 11:33 Dose: 125 mg Documented By: LAURA Divalproex Sodium (Divalproex Sodium 250 Mg Estefania.Dr) 250 mg PO TID [facility] Last Admin: 08/11/23 11:33 Dose: 250 mg Documented By: LAURA Fenofibrate (Fenofibrate 160 Mg Tablet) 160 mg PO DAILY [facility] Last Admin: 08/11/23 11:33 Dose: 160 mg Documented By: LAURA Gabapentin (Gabapentin 300 Mg Capsule) 900 mg PO TID [facility] Last Admin: 08/11/23 11:33 Dose: 900 mg Documented By: LAURA Glucose (Glucose Gel 15 Gm Gel..Gram.) 15 gm PO Q15M PRN; Protocol PRN Reason: per Hypoglycemia Standing Ord. Ampicillin Sodium/Sulbactam (Sodium 3 gm/ Sodium Chloride) 100 mls @ 200 mls/hr IV Q6H [facility] Last Infusion: 08/11/23 12:19 Dose: Infused Documented By: LAURA Sodium Chloride (Ns) 1,000 mls @ 100 mls/hr IVCONT .Q10H [facility] Last Admin: 08/11/23 11:34 Dose: 100 mls/hr Documented By: LAURA Insulin Human Lispro (Insulin Lispro 100 Unit/Ml 3 Ml Vial) 0 unit SUBCUT QIDACHS [facility]; Protocol Melatonin (Melatonin 3 Mg Tablet) 6 mg PO BEDTIME [facility] Last Admin: 08/11/23 00:21 Dose: 6 mg Documented By: SHERLYN Mirtazapine (Mirtazapine 7.5 Mg Tablet) 7.5 mg PO BEDTIME [facility] Last Admin: 08/11/23 00:21 Dose: 7.5 mg Documented By: SHERLYN Olanzapine (Olanzapine 10 Mg Tablet) 20 mg PO BEDTIME [facility] Last Admin: 08/11/23 00:59 Dose: 20 mg Documented By: SHERLYN Olanzapine (Olanzapine 5 Mg Tablet) 5 mg PO Q6H PRN PRN Reason: agitation Last Admin: 08/10/23 15:31 Dose: 5 mg Documented By: RITO Ondansetron HCl (Ondansetron Hcl 4 Mg/2 Ml Vial) 4 mg IVPUSH Q8H PRN PRN Reason: Nausea and Vomiting Senna (Sennosides 8.6 Mg Tablet) 17.2 mg PO BEDTIME PRN PRN Reason: Constipation Sodium Chloride (0.9 % Sodium Chloride Flush 3 Ml Syringe) 3 ml IVFLUSH QSHIFT [facility] Last Admin: 08/11/23 11:32 Dose: 3 ml Documented By: LAURA Trazodone HCl (Trazodone Hcl 100 Mg Tablet) 200 mg PO BEDTIME [facility] Last Admin: 08/11/23 00:21 Dose: 200 mg Documented By: SHERLYN Warfarin Sodium (Warfarin Sodium 4 Mg Tablet) 4 mg PO DAILY@1800 [facility] Last Admin: 08/09/23 18:04 Dose: 4 mg Documented By: FRAN Warfarin Sodium (Warfarin Sodium 3 Mg Tablet) 3 mg PO DAILY@1800 [facility] Labs 08/11/23 09:32 08/11/23 09:32 Labs: Laboratory Results - last 24 hr 08/10/23 08/10/23 08/10/23 16:22 17:48 20:09 MCV 84.4 MCH 25.8 L MCHC 30.5 L RDW 17.1 H Plt Count 287 MPV 10.6 Immature Gran % (Auto) 0.2 Neut % (Auto) 77.7 H Lymph % (Auto) 13.9 L [place] % (Auto) 7.3 Eos % (Auto) 0.5 Baso % (Auto) 0.4 Lymph # (Auto) 1.6 [place] # (Auto) 0.9 Eos # (Auto) 0.1 Baso # (Auto) 0.1 Abs Immat Gran (auto) 0.02 Absolute Neuts (auto) 9.1 H Absolute Nucleated RBC 0.000 Nucleated RBC % (auto) 0.0 PT INR Anion Gap 19 Estim Creat Clear Calc 107.0 Estimated GFR > 60 POC Glucose 170 H Random Glucose 228 H Estimat Average Glucose Hemoglobin A1c % Lactic Acid 3.0 H* Lactic Acid F/U @ 2Hr Calcium 9.7 Total Creatine Kinase 3377 H Urine Color Urine Appearance Urine pH Ur Specific [place] Urine Protein Urine Glucose (UA) Urine Ketones Urine Blood Urine Nitrite Ur Leukocyte Esterase Influenza Type A (PCR) Influenza Type B (PCR) RSV RNA Qual (PCR) SARS-CoV-2 RNA (RT-PCR) 08/10/23 08/11/23 08/11/23 21:41 00:43 05:55 MCV MCH MCHC RDW Plt Count MPV Immature Gran % (Auto) Neut % (Auto) Lymph % (Auto) [place] % (Auto) Eos % (Auto) Baso % (Auto) Lymph # (Auto) [place] # (Auto) Eos # (Auto) Baso # (Auto) Abs Immat Gran (auto) Absolute Neuts (auto) Absolute Nucleated RBC Nucleated RBC % (auto) PT INR Anion Gap Estim Creat Clear Calc Estimated GFR POC Glucose 192 H Random Glucose Estimat Average Glucose Hemoglobin A1c % Lactic Acid Lactic Acid F/U @ 2Hr 1.0 Calcium Total Creatine Kinase Urine Color Urine Appearance Urine pH Ur Specific [place] Urine Protein Urine Glucose (UA) Urine Ketones Urine Blood Urine Nitrite Ur Leukocyte Esterase Influenza Type A (PCR) NEGATIVE Influenza Type B (PCR) NEGATIVE RSV RNA Qual (PCR) NEGATIVE SARS-CoV-2 RNA (RT-PCR) NEGATIVE 08/11/23 08/11/23 08/11/23 08:59 09:32 12:06 MCV 84.1 MCH 25.5 L MCHC 30.3 L RDW 17.1 H Plt Count 212 D MPV 10.3 Immature Gran % (Auto) 0.3 Neut % (Auto) 71.3 Lymph % (Auto) 18.6 L [place] % (Auto) 8.1 Eos % (Auto) 1.3 Baso % (Auto) 0.4 Lymph # (Auto) 1.3 [place] # (Auto) 0.6 Eos # (Auto) 0.1 Baso # (Auto) 0.0 Abs Immat Gran (auto) 0.02 Absolute Neuts (auto) 4.9 Absolute Nucleated RBC 0.000 Nucleated RBC % (auto) 0.0 PT 17.4 H D INR 1.4 H Anion Gap 14 Estim Creat Clear Calc 128.7 Estimated GFR > 60 POC Glucose 192 H Random Glucose 210 H Estimat Average Glucose 140 Hemoglobin A1c % 6.5 H Lactic Acid Lactic Acid F/U @ 2Hr Calcium 8.3 L D Total Creatine Kinase 1356 H Urine Color Yellow Urine Appearance Clear Urine pH 6.0 Ur Specific [place] 1.020 Urine Protein Negative Urine Glucose (UA) 250 H Urine Ketones Trace Urine Blood Negative Urine Nitrite Negative Ur Leukocyte Esterase Negative Influenza Type A (PCR) Influenza Type B (PCR) RSV RNA Qual (PCR) SARS-CoV-2 RNA (RT-PCR) Assessment and Plan (1) Aspiration pneumonia: Status: Acute (2) Encephalopathy: Status: Acute (3) Fever: Status: Acute (4) Schizoaffective disorder: Status: Acute Plan d2 62yo M with DM2, schizoaffective disorder, seizure disorder, mild cognitive impairment, mild intellectual disability, HLD, HTN, GERD, hx AoVR with mechanical valve on warfarin presented to ED 08/08/23 after falling out of bed, reporting he passed out possibly not taking medication as his sister is out of state 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 was awaiting STR placement in ED developed acute agitation, fever to 100.6 after choking on dinner prior night found to have rhabdomyolysis and aspiration pneumonia acute hypoxic resp failure due to aspiration pneumonia - IV amp/sulbactam d2, follow 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: NDD3 solids, thin liquids - currently on 1-2L O2 via NC, wean as tolerated rhabdomyolysis - continue IV NS, trend CPK which is cmoing down agitated delirium - seen by Psychiatry, felt due to noncompliance with medications- resumed all home meds which are olanzapine + mirtazapine + valproate + trazodone seizure disorder - could have had a seizure given noncompliance, fell out of bed and passed out on day of arrival, valproate level subtherapeutic - resume levetiracetam + valproate, Neurology consult pending aortic valve replacement, subtherapeutic INR - will give extra dose of warfarin today, bridge with enoxaparin 1.5 mg/kg once today, monitor INR daily DM2 - correction-dose lispro, hold OHGs HLD - continue statin, fibrate DM neuropathy - continue gabapentin VTE ppx - warfarin dispo - eventual STR In my clinical judgment, the patient requires continued inpatient hospitalization for the following reasons: IV ABX, IV fluids Total time managing care of this patient today: 50 minutes. Quality Stroke Does the patient have a stroke diagnosis?: No VTE Prior VTE?: No VTE Risk Level:: Medical - moderate - high VTE Device Contraindication: Treatment Not Indicated VTE Drug Contraindication: N/A - Med Ordered
--- NOTE | 2023-08-11 14:26 | PM.NEUROCN ---
History of Present Illness Data of Consult Service Date: 08/11/23 Primary Care Provider: Unknown Physician HPI Reason for consult: Questionable seizure 62 years old man with complex underlying history with possible blurring disability from congenital causes, psychiatric disease, and heart disease. He was brought to hospital after he fell out of bed. It was not clear what exactly happened. When I try to talk to him he was unable to provide any meaningful history. 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 anticoagulation Type 2 diabetes mellitus Surgical History Surgical History H/O mechanical aortic valve replacement Social History Social History Patient Tobacco Use Status: Tobacco use Unknown Smoked in Last 30 Days: No Use of substances other than those prescribed or required for medical reasons: No Advance Directives: No Advance Directives Information Provided: Yes Healthcare Proxy: Yes (Sister Mary Lou Solomon (lives 10 minutes away, but currently in [place])) Guardian: No Nutrition Risks: Difficulty swallowing Meds Allergies Allergy/AdvReac Type Severity Reaction Status Date / Time No Known Allergies Allergy Verified 08/08/23 21:44 Active Medications: Current Medications Acetaminophen (Acetaminophen 325 Mg Tablet) 650 mg PO Q6H PRN PRN Reason: Pain, Mild (Pain Scale 1-3) Aspirin (Aspirin 81 Mg Tab.Chew) 81 mg PO DAILY [facility] Last Admin: 08/11/23 11:32 Dose: 81 mg Atorvastatin Calcium (Atorvastatin Calcium 40 Mg Tablet) 40 mg PO DAILY [facility] Last Admin: 08/10/23 08:23 Dose: 40 mg Benzocaine (Throat Lozenge, Medicated Lozenge) 1 lozenge MUCOUS MEM Q2H PRN PRN Reason: Sore Throat Last Admin: 08/10/23 15:30 Dose: 1 lozenge Dextrose (Dextrose 50 % 25 Gm/50 Ml Syringe) 25 gm IVPUSH Q15M PRN; Protocol PRN Reason: per Hypoglycemia Standing Ord. Divalproex Sodium (Divalproex Sodium Sprinkles 125 Mg ) 125 mg PO TID [facility] Last Admin: 08/11/23 11:33 Dose: 125 mg Divalproex Sodium (Divalproex Sodium 250 Mg Tablet.) 250 mg PO TID [facility] Last Admin: 08/11/23 11:33 Dose: 250 mg Fenofibrate (Fenofibrate 160 Mg Tablet) 160 mg PO DAILY [facility] Last Admin: 08/11/23 11:33 Dose: 160 mg Gabapentin (Gabapentin 300 Mg Capsule) 900 mg PO TID [facility] Last Admin: 08/11/23 11:33 Dose: 900 mg Glucose (Glucose Gel 15 Gm Gel..Gram.) 15 gm PO Q15M PRN; Protocol PRN Reason: per Hypoglycemia Standing Ord. Ampicillin Sodium/Sulbactam (Sodium 3 gm/ Sodium Chloride) 100 mls @ 200 mls/hr IV Q6H [facility] Last Infusion: 08/11/23 12:19 Dose: Infused Sodium Chloride (Ns) 1,000 mls @ 100 mls/hr IVCONT .Q10H [facility] Last Admin: 08/11/23 11:34 Dose: 100 mls/hr Insulin Human Lispro (Insulin Lispro 100 Unit/Ml 3 Ml Vial) 0 unit SUBCUT QIDACHS [facility]; Protocol Levetiracetam (Levetiracetam 500 Mg Tablet) 500 mg PO BID [facility] Melatonin (Melatonin 3 Mg Tablet) 6 mg PO BEDTIME [facility] Last Admin: 08/11/23 00:21 Dose: 6 mg Mirtazapine (Mirtazapine 7.5 Mg Tablet) 7.5 mg PO BEDTIME [facility] Last Admin: 08/11/23 00:21 Dose: 7.5 mg Olanzapine (Olanzapine 10 Mg Tablet) 20 mg PO BEDTIME [facility] Last Admin: 08/11/23 00:59 Dose: 20 mg Olanzapine (Olanzapine 5 Mg Tablet) 5 mg PO Q6H PRN PRN Reason: agitation Last Admin: 08/10/23 15:31 Dose: 5 mg Ondansetron HCl (Ondansetron Hcl 4 Mg/2 Ml Vial) 4 mg IVPUSH Q8H PRN PRN Reason: Nausea and Vomiting Senna (Sennosides 8.6 Mg Tablet) 17.2 mg PO BEDTIME PRN PRN Reason: Constipation Sodium Chloride (0.9 % Sodium Chloride Flush 3 Ml Syringe) 3 ml IVFLUSH QSHIFT [facility] Last Admin: 12/07/23 11:32 Dose: 3 ml Trazodone HCl (Trazodone Hcl 100 Mg Tablet) 200 mg PO BEDTIME [facility] Last Admin: 08/11/23 00:21 Dose: 200 mg Warfarin Sodium (Warfarin Sodium 4 Mg Tablet) 4 mg PO DAILY@1800 [facility] Last Admin: 08/09/23 18:04 Dose: 4 mg Warfarin Sodium (Warfarin Sodium 3 Mg Tablet) 3 mg PO DAILY@1800 [facility] Home Medications Medication Instructions Recorded Confirmed Last Taken Type aspirin 81 mg chewable tablet 1 tab PO DAILY 08/09/23 08/09/23 Unknown History atorvastatin 40 mg tablet 40 mg PO DAILY 08/09/23 08/09/23 Unknown History divalproex 125 mg tablet,delayed 125 mg PO TID 08/09/23 08/09/23 Unknown History release divalproex 250 mg tablet,delayed 250 mg PO TID 08/09/23 08/09/23 Unknown History release fenofibrate nanocrystallized 145 145 mg PO DAILY 08/09/23 08/09/23 Unknown History mg tablet gabapentin 300 mg capsule 900 mg PO TID 08/09/23 08/09/23 Unknown History glipizide 5 mg tablet 5 mg PO DAILY@0730 08/09/23 08/09/23 Unknown History levetiracetam 500 mg tablet 500 mg PO BID 08/09/23 08/09/23 Unknown History melatonin 3 mg tablet 6 mg PO BEDTIME 08/09/23 08/09/23 Unknown History metformin 1,000 mg tablet 1,000 mg PO BID 08/09/23 08/09/23 Unknown History mirtazapine 7.5 mg tablet 7.5 mg PO BEDTIME 08/09/23 08/09/23 Unknown History nystatin 100,000 unit/gram topical 1 appl topical BID 08/09/23 08/09/23 Unknown History powder (Nystop) olanzapine 20 mg tablet 20 mg PO BEDTIME 08/09/23 08/09/23 Unknown History trazodone 100 mg tablet 200 mg PO BEDTIME 08/09/23 08/09/23 Unknown History warfarin 4 mg tablet 4 mg PO DAILY 08/09/23 08/09/23 Unknown History Physical Exam Vital Signs: Vital Signs: Last Vital Signs Temp 97.4 F 08/11/23 11:36 Pulse 100 08/11/23 11:36 Resp 20 08/11/23 11:36 BP 122/68 08/11/23 11:36 Pulse Ox 98 08/11/23 11:36 O2 Del Method Nasal Cannula 08/11/23 11:36 O2 Flow Rate 97 08/11/23 11:36 BMI result Body Mass Index 28.3 Neuro: Other: He is alert and awake shouting loudly and talking about things that did not make sense. He said that he was having some problem with his rare and just like his mother. He was also talking about people who were not in the room and trying to indicate to them. He was not answering questions. Face was symmetrical. Visual bergeron seem to be okay. There was no obvious focal arm or leg weakness. Plantars were flexor. Examination was limited. Results Labs 08/11/23 09:32 08/11/23 09:32 Labs: Short CBC 08/10/23 08/11/23 Range/Units 17:48 09:32 WBC 11.7 H 6.9 (4.8-10.8) X10*3/uL Hgb 11.9 L 11.2 L (14.0-18.0) g/dl Hct 39.0 L 37.0 L (42.0-52.0) % Plt Count 287 212 D (160-400) X10*3/uL BMP 08/10/23 08/11/23 17:48 09:32 Sodium 139 144 Potassium 3.8 4.0 Chloride 102 108 Carbon Dioxide 22 26 BUN 20 H 13 Creatinine 0.83 0.69 Calcium 9.7 8.3 L D Cardiac Enzymes 08/10/23 08/11/23 Range/Units 17:48 09:32 Total Creatine Kinase 3377 H 1356 H (38-174) U/L Urine 08/11/23 Range/Units 08:59 Urine Color Yellow Urine Appearance Clear Urine pH 6.0 (5.0-9.0) Ur Specific [place] 1.020 (1.005-1.025) Urine Protein Negative (Neg-Trace) mg/dL Urine Glucose (UA) 250 H (Negative) mg/dL Head CT revealed moderately severe central atrophy and mild microvascular ischemic changes. Assessment and Plan (1) Encephalopathy: Status: Acute 62 years old man who probably has underlying learning disability from congenital causes, diagnosis of she has affective disorder, and multiple medical issues including heart disease. His present clinical situation is suggestive of encephalopathy with behavioral symptomatology. There is no focal lesion and or acute lesion on his MRI. Seizure seems to be unlikely possibility, but an EEG is recommended to rule out epileptic encephalopathy. He is on relatively high dose of gabapentin and trazodone with all answer PN on board putting him at risk for unsteadiness and falling. Adjustment of doses is recommended. Procedures Date of Service Date of Service: 08/11/23
[2023-08-11 14:57] VITALS: BP 146/81; PULSE 98; RESP 18; TEMP 36.9; O2SAT 92
[2023-08-11 16:26] LABS: Glucose, Whole Blood 150 mg/dL (60-115)
[2023-08-11] MEDS: Insulin Lispro 100 UNIT/ML 3 ML VIAL SUBCUT ×2 (17:36→21:41)
[2023-08-11] MEDS: Warfarin Sodium 4 MG TABLET PO (17:37)
[2023-08-11] MEDS: Warfarin Sodium 3 MG TABLET PO (18:00)
[2023-08-11 19:33] VITALS: BP 142/90; PULSE 99; RESP 18; TEMP 36.6; O2SAT 92
[2023-08-11 20:16] LABS: Glucose, Whole Blood 180 mg/dL (60-115)
[2023-08-11] MEDS: levETIRAcetam 500 MG TABLET PO (21:41)
[2023-08-12] VITALS (8 sets, daily range): BP systolic 124–175; BP diastolic 69–84; PULSE 75–113; RESP 15–20; TEMP 36.1–37.3; O2SAT 92–100
--- NOTE | 2023-08-12 | EEG_ITS ---
This is a 16-channel EEG with an EKG lead. The patient is reported uncooperative, agitated, and confused during the tracing. Background EEG rhythm is low amplitude fast with no obvious asymmetry or paroxysmal tendency. Some lead and muscle artifacts are noted. Photic stimulation and hyperventilation are not performed. Cardiac lead does not reveal any significant abnormality. IMPRESSION: Unremarkable EEG. MD DARRELL Zarate/AMADEO / [id number]
[2023-08-12] MEDS: Ampicillin Sodium/Sulbactam Na 3 GM in 0.9 % Sodium Chloride 100 ML IV ×4 (05:41→22:33)
[2023-08-12] MEDS: 0.9 % Sodium Chloride 1,000 ML 100 ML IVCONT (07:15)
[2023-08-12 07:26] LABS: Glucose, Whole Blood 199 mg/dL (60-115)
[2023-08-12] MEDS: Insulin Lispro 100 UNIT/ML 3 ML VIAL SUBCUT ×3 (08:09→16:50)
[2023-08-12] MEDS: Divalproex Sodium Sprinkles 125 MG CAP.DR.SPR PO ×3 (08:10→22:16)
[2023-08-12] MEDS: Gabapentin 300 MG CAPSULE 900 MG PO (08:10)
[2023-08-12] MEDS: Fenofibrate 160 MG TABLET PO (08:10)
[2023-08-12] MEDS: Divalproex Sodium 250 MG TABLET.DR PO ×3 (08:10→22:15)
[2023-08-12] MEDS: levETIRAcetam 500 MG TABLET PO ×2 (08:10→22:15)
[2023-08-12] MEDS: Aspirin 81 MG TAB.CHEW PO (08:10)
[2023-08-12 08:20] LABS: Hematocrit 36.7 % (42.0-52.0); Mean Corpuscular Hemoglobin 25.7 pg (27.0-33.0); Mean Corpuscular Volume 85.7 fL (80.0-98.0); Mean Platelet Volume 10.6 fL (9.4-12.4); Platelet Count 228 X10*3/uL (160-400); Red Blood Count 4.28 X10*6/uL (4.60-5.80); Red Cell Distribution Width 17.1 % (11.0-16.0); White Blood Count 5.5 X10*3/uL (4.8-10.8)
[2023-08-12 08:25] LABS: Prothrombin Time 24.8 SEC (11.1-13.3)
[2023-08-12] MEDS: Enoxaparin Sodium 120 MG/0.8 ML SYRINGE SUBCUT (10:01)
[2023-08-12 11:27] LABS: Glucose, Whole Blood 225 mg/dL (60-115)
--- NOTE | 2023-08-12 12:34 | MHC.SLORD ---
Speech Language Pathology Order Status: Patient checked on after lunch for toleration of diet. Per SPEECH CLINICIAN who fed him, patient is tolerating diet well, but does need frequent cuing to not talk while eating and not to pocket food in mouth. TEST CARRIER will continue to follow.
--- NOTE | 2023-08-12 13:23 | P.PNIM_ITS ---
Subjective Subjective Date of Service: 08/12/23 Interval History: disorganized speech but pt is able to tell me he is constipated Review of Systems Review of Systems: Yes all other systems are reviewed and are negative Physical Exam 2 Vital Signs: Vital Signs: Last Vital Signs Temp 97.7 F 08/12/23 11:30 Pulse 90 08/12/23 11:30 Resp 15 08/12/23 11:30 BP 150/76 H 08/12/23 11:30 Pulse Ox 95 08/12/23 11:30 O2 Del Method Room Air 08/12/23 11:30 O2 Flow Rate 1 08/12/23 03:17 BMI result Body Mass Index 28.3 Gen: in no acute distress HEENT: sclera anicteric, moist mucus membranes Neck: supple Lungs: clear to auscultation bilaterally Heart: regular rate and rhythm, no murmurs Abd: soft, non-tender, somewhat distended Ext: no edema Skin: warm/well-perfused Neuro: alert, unable to assess orientation Psych: rambling/disorganized speech, impaired insight Objective Data Active Medications Acetaminophen (Acetaminophen 325 Mg Tablet) 650 mg PO Q6H PRN PRN Reason: Pain, Mild (Pain Scale 1-3) Aspirin (Aspirin 81 Mg Tab.Chew) 81 mg PO DAILY [facility] Last Admin: 08/12/23 08:10 Dose: 81 mg Documented By: ERNIE Atorvastatin Calcium (Atorvastatin Calcium 40 Mg Tablet) 40 mg PO DAILY [facility] Last Admin: 08/10/23 08:23 Dose: 40 mg Documented By: RITO Benzocaine (Throat Lozenge, Medicated Lozenge) 1 lozenge MUCOUS MEM Q2H PRN PRN Reason: Sore Throat Last Admin: 08/10/23 15:30 Dose: 1 lozenge Documented By: RITO Dextrose (Dextrose 50 % 25 Gm/50 Ml Syringe) 25 gm IVPUSH Q15M PRN; Protocol PRN Reason: per Hypoglycemia Standing Ord. Divalproex Sodium (Divalproex Sodium Sprinkles 125 Mg Cap.) 125 mg PO TID [facility] Last Admin: 08/12/23 08:10 Dose: 125 mg Documented By: ERNIE Divalproex Sodium (Divalproex Sodium 250 Mg Estefania.) 250 mg PO TID [facility] Last Admin: 08/12/23 08:10 Dose: 250 mg Documented By: ERNIE Fenofibrate (Fenofibrate 160 Mg Tablet) 160 mg PO DAILY [facility] Last Admin: 08/12/23 08:10 Dose: 160 mg Documented By: ERNIE Gabapentin (Gabapentin 300 Mg Capsule) 900 mg PO TID [facility] Last Admin: 08/12/23 08:10 Dose: 900 mg Documented By: ERNIE Glucose (Glucose Gel 15 Gm Gel..Gram.) 15 gm PO Q15M PRN; Protocol PRN Reason: per Hypoglycemia Standing Ord. Ampicillin Sodium/Sulbactam (Sodium 3 gm/ Sodium Chloride) 100 mls @ 200 mls/hr IV Q6H [place] Last Infusion: 08/12/23 12:33 Dose: Infused Documented By: ERNIE Sodium Chloride (Ns) 1,000 mls @ 100 mls/hr IVCONT .Q10H [place] Last Admin: 08/12/23 07:15 Dose: 100 mls/hr Documented By: ERNIE Insulin Human Lispro (Insulin Lispro 100 Unit/Ml 3 Ml Vial) 0 unit SUBCUT QIDACHS [facility]; Protocol Last Admin: 08/12/23 11:57 Dose: 4 unit Documented By: ERNIE Levetiracetam (Levetiracetam 500 Mg Tablet) 500 mg PO BID [facility] Last Admin: 08/12/23 08:10 Dose: 500 mg Documented By: ERINE Melatonin (Melatonin 3 Mg Tablet) 6 mg PO BEDTIME [place] Last Admin: 08/11/23 21:41 Dose: 6 mg Documented By: DANIELA Mirtazapine (Mirtazapine 7.5 Mg Tablet) 7.5 mg PO BEDTIME [place] Last Admin: 08/11/23 21:41 Dose: 7.5 mg Documented By: DANIELA Olanzapine (Olanzapine 10 Mg Tablet) 20 mg PO BEDTIME [place] Last Admin: 08/11/23 21:41 Dose: 20 mg Documented By: DANIELA Olanzapine (Olanzapine 5 Mg Tablet) 5 mg PO Q6H PRN PRN Reason: agitation Last Admin: 08/10/23 15:31 Dose: 5 mg Documented By: RITO Ondansetron HCl (Ondansetron Hcl 4 Mg/2 Ml Vial) 4 mg IVPUSH Q8H PRN PRN Reason: Nausea and Vomiting Senna (Sennosides 8.6 Mg Tablet) 17.2 mg PO BEDTIME PRN PRN Reason: Constipation Sodium Chloride (0.9 % Sodium Chloride Flush 3 Ml Syringe) 3 ml IVFLUSH QSHIFT [facility] Last Admin: 08/12/23 08:11 Dose: Not Given Documented By: ERNIE Non-Admin Reason: IV Running Trazodone HCl (Trazodone Hcl 100 Mg Tablet) 200 mg PO BEDTIME [facility] Last Admin: 08/11/23 21:41 Dose: 200 mg Documented By: DANIELA Warfarin Sodium (Warfarin Sodium 4 Mg Tablet) 4 mg PO DAILY@1800 [facility] Last Admin: 08/11/23 17:37 Dose: 4 mg Documented By: LAURA Warfarin Sodium (Warfarin Sodium 3 Mg Tablet) 3 mg PO ONCE@1800 ONE Stop: 08/12/23 18:01 Labs 08/12/23 07:57 08/11/23 09:32 Labs: Laboratory Results - last 24 hr 08/11/23 08/11/23 08/12/23 16:19 20:10 07:07 MCV MCH MCHC RDW Plt Count MPV Absolute Nucleated RBC Nucleated RBC % (auto) PT INR POC Glucose 150 H 180 H 199 H Total Creatine Kinase 08/12/23 08/12/23 07:57 11:10 MCV 85.7 MCH 25.7 L MCHC 30.0 L RDW 17.1 H Plt Count 228 MPV 10.6 Absolute Nucleated RBC 0.000 Nucleated RBC % (auto) 0.0 PT 24.8 H D INR 2.0 H POC Glucose 225 H Total Creatine Kinase 779 H Microbiology Microbiology Results: Microbiology 08/10/23 20:09 Blood Culture - Preliminary Blood - Venous No growth after 24 hours. 08/10/23 20:09 Blood Culture - Preliminary Blood - Venous No growth after 24 hours. 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 was awaiting STR placement in ED developed acute agitation, fever to 100.6 after choking on dinner prior night found to have rhabdomyolysis and aspiration pneumonia acute hypoxic resp failure due to aspiration pneumonia - IV amp/sulbactam d3, follow BP - 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 normalized after IV fluids seizure disorder - could have had a seizure given noncompliance, fell out of bed and passed out on day of arrival, valproate level subtherapeutic - resume levetiracetam + valproate, Neurology consulted, EEG pending mechanical aortic valve replacement, subtherapeutic INR - will give another extra dose of warfarin today, bridge with enoxaparin 1.5 mg/kg once again today, monitor INR daily DM2 - correction-dose lispro, hold OHGs HLD - continue statin, fibrate DM neuropathy - continue gabapentin VTE ppx - warfarin dispo - eventual STR In my clinical judgment, the patient requires continued inpatient hospitalization for the following reasons: IV ABX, placement Total time managing care of this patient today: 40 minutes. Quality Stroke Does the patient have a stroke diagnosis?: No VTE Prior VTE?: No VTE Risk Level:: Medical - moderate - high VTE Device Contraindication: Treatment Not Indicated VTE Drug Contraindication: N/A - Med Ordered
--- NOTE | 2023-08-12 14:31 | PM.PSYCN ---
History of Present Illness Date of Service: 08/12/23 Chief Complaint: Fever, SIRS, encephalopathy Reason for Consult: opinion on need for various psych/neuro meds which may be sedating patient HPI Narrative: see previous consult for earlier history. since prior consult, pt was admitted to medicine out of concern for an infectious process, possibly an aspiration PNA. pt was started on antibx and admitted. since admission he has appeared quite sedated, and the reasons are unclear. neurology was consulted and opinion that perhaps lowering doses of gabapentin and trazodone were warranted. attempted to interview pt, who was not rousable to loud voice and shoulder squeeze. case was discussed with Dr. Meza later in the day. 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 sister, who is HCP, is trying to get pt into penitentiary and has been in touch with [facility] and [facility]. Diagnostics Vital Signs (24Hr): Vital Signs - 24 hr 08/11/23 14:57 08/11/23 19:33 08/12/23 00:00 Temperature 98.5 F 98 F 97.0 F Pulse Rate 98 99 94 Respiratory Rate 18 18 20 Blood Pressure 146/81 H 142/90 H 140/71 H Pulse Oximetry 92 92 95 Oxygen Delivery Method Nasal Cannula Nasal Cannula Nasal Cannula Oxygen Flow Rate 2 2 1 08/12/23 03:17 08/12/23 07:28 08/12/23 11:30 Temperature 97.0 F 97.8 F 97.7 F Pulse Rate 98 113 H 90 Respiratory Rate 20 18 15 Blood Pressure 150/70 H 124/76 150/76 H Pulse Oximetry 94 93 95 Oxygen Delivery Method Nasal Cannula Nasal Cannula Room Air Oxygen Flow Rate 1 BMI result Body Mass Index 28.3 Labs 08/12/23 07:57 08/11/23 09:32 Labs: Laboratory Results - last 48 hr 1208/10/23 08/10/23 16:22 17:48 20:09 WBC 11.7 H RBC 4.62 Hgb 11.9 L Hct 39.0 L MCV 84.4 MCH 25.8 L MCHC 30.5 L RDW 17.1 H Plt Count 287 MPV 10.6 Immature Gran % (Auto) 0.2 Neut % (Auto) 77.7 H Lymph % (Auto) 13.9 L [place] % (Auto) 7.3 Eos % (Auto) 0.5 Baso % (Auto) 0.4 Lymph # (Auto) 1.6 [place] # (Auto) 0.9 Eos # (Auto) 0.1 Baso # (Auto) 0.1 Abs Immat Gran (auto) 0.02 Absolute Neuts (auto) 9.1 H Absolute Nucleated RBC 0.000 Nucleated RBC % (auto) 0.0 PT INR Sodium 139 Potassium 3.8 Chloride 102 Carbon Dioxide 22 Anion Gap 19 BUN 20 H Creatinine 0.83 Estim Creat Clear Calc 107.0 Estimated GFR > 60 POC Glucose 170 H Random Glucose 228 H Estimat Average Glucose Hemoglobin A1c % Lactic Acid 3.0 H* Lactic Acid F/U @ 2Hr Calcium 9.7 Total Creatine Kinase 3377 H Troponin I High Sens 20.0 21.5 Urine Color Urine Appearance Urine pH Ur Specific [place] Urine Protein Urine Glucose (UA) Urine Ketones Urine Blood Urine Nitrite Ur Leukocyte Esterase Influenza Type A (PCR) Influenza Type B (PCR) RSV RNA Qual (PCR) SARS-CoV-2 RNA (RT-PCR) 08/10/23 08/11/23 08/11/23 21:41 00:43 05:55 WBC RBC Hgb Hct MCV MCH MCHC RDW Plt Count MPV Immature Gran % (Auto) Neut % (Auto) Lymph % (Auto) [place] % (Auto) Eos % (Auto) Baso % (Auto) Lymph # (Auto) [place] # (Auto) Eos # (Auto) Baso # (Auto) Abs Immat Gran (auto) Absolute Neuts (auto) Absolute Nucleated RBC Nucleated RBC % (auto) PT INR Sodium Potassium Chloride Carbon Dioxide Anion Gap BUN Creatinine Estim Creat Clear Calc Estimated GFR POC Glucose 192 H Random Glucose Estimat Average Glucose Hemoglobin A1c % Lactic Acid Lactic Acid F/U @ 2Hr 1.0 Calcium Total Creatine Kinase Troponin I High Sens Urine Color Urine Appearance Urine pH Ur Specific [place] Urine Protein Urine Glucose (UA) Urine Ketones Urine Blood Urine Nitrite Ur Leukocyte Esterase Influenza Type A (PCR) NEGATIVE Influenza Type B (PCR) NEGATIVE RSV RNA Qual (PCR) NEGATIVE SARS-CoV-2 RNA (RT-PCR) NEGATIVE 08/11/23 08/11/23 08/11/23 08:59 09:32 12:06 WBC 6.9 RBC 4.40 L Hgb 11.2 L Hct 37.0 L MCV 84.1 MCH 25.5 L MCHC 30.3 L RDW 17.1 H Plt Count 212 D MPV 10.3 Immature Gran % (Auto) 0.3 Neut % (Auto) 71.3 Lymph % (Auto) 18.6 L [place] % (Auto) 8.1 Eos % (Auto) 1.3 Baso % (Auto) 0.4 Lymph # (Auto) 1.3 [place] # (Auto) 0.6 Eos # (Auto) 0.1 Baso # (Auto) 0.0 Abs Immat Gran (auto) 0.02 Absolute Neuts (auto) 4.9 Absolute Nucleated RBC 0.000 Nucleated RBC % (auto) 0.0 PT 17.4 H D INR 1.4 H Sodium 144 Potassium 4.0 Chloride 108 Carbon Dioxide 26 Anion Gap 14 BUN 13 Creatinine 0.69 Estim Creat Clear Calc 128.7 Estimated GFR > 60 POC Glucose 192 H Random Glucose 210 H Estimat Average Glucose 140 Hemoglobin A1c % 6.5 H Lactic Acid Lactic Acid F/U @ 2Hr Calcium 8.3 L D Total Creatine Kinase 1356 H Troponin I High Sens Urine Color Yellow Urine Appearance Clear Urine pH 6.0 Ur Specific [place] 1.020 Urine Protein Negative Urine Glucose (UA) 250 H Urine Ketones Trace Urine Blood Negative Urine Nitrite Negative Ur Leukocyte Esterase Negative Influenza Type A (PCR) Influenza Type B (PCR) RSV RNA Qual (PCR) SARS-CoV-2 RNA (RT-PCR) 08/11/23 08/11/23 08/12/23 16:19 20:10 07:07 WBC RBC Hgb Hct MCV MCH MCHC RDW Plt Count MPV Immature Gran % (Auto) Neut % (Auto) Lymph % (Auto) [place] % (Auto) Eos % (Auto) Baso % (Auto) Lymph # (Auto) [place] # (Auto) Eos # (Auto) Baso # (Auto) Abs Immat Gran (auto) Absolute Neuts (auto) Absolute Nucleated RBC Nucleated RBC % (auto) PT INR Sodium Potassium Chloride Carbon Dioxide Anion Gap BUN Creatinine Estim Creat Clear Calc Estimated GFR POC Glucose 150 H 180 H 199 H Random Glucose Estimat Average Glucose Hemoglobin A1c % Lactic Acid Lactic Acid F/U @ 2Hr Calcium Total Creatine Kinase Troponin I High Sens Urine Color Urine Appearance Urine pH Ur Specific [place] Urine Protein Urine Glucose (UA) Urine Ketones Urine Blood Urine Nitrite Ur Leukocyte Esterase Influenza Type A (PCR) Influenza Type B (PCR) RSV RNA Qual (PCR) SARS-CoV-2 RNA (RT-PCR) 08/12/23 08/12/23 07:57 11:10 WBC 5.5 RBC 4.28 L Hgb 11.0 L Hct 36.7 L MCV 85.7 MCH 25.7 L MCHC 30.0 L RDW 17.1 H Plt Count 228 MPV 10.6 Immature Gran % (Auto) Neut % (Auto) Lymph % (Auto) [place] % (Auto) Eos % (Auto) Baso % (Auto) Lymph # (Auto) [place] # (Auto) Eos # (Auto) Baso # (Auto) Abs Immat Gran (auto) Absolute Neuts (auto) Absolute Nucleated RBC 0.000 Nucleated RBC % (auto) 0.0 PT 24.8 H D INR 2.0 H Sodium Potassium Chloride Carbon Dioxide Anion Gap BUN Creatinine Estim Creat Clear Calc Estimated GFR POC Glucose 225 H Random Glucose Estimat Average Glucose Hemoglobin A1c % Lactic Acid Lactic Acid F/U @ 2Hr Calcium Total Creatine Kinase 779 H Troponin I High Sens Urine Color Urine Appearance Urine pH Ur Specific [place] Urine Protein Urine Glucose (UA) Urine Ketones Urine Blood Urine Nitrite Ur Leukocyte Esterase Influenza Type A (PCR) Influenza Type B (PCR) RSV RNA Qual (PCR) SARS-CoV-2 RNA (RT-PCR) Imaging Radiology Impressions: ITS Impressions Cervical Spine CT 08/09/23 00:20 IMPRESSION: Cerebral volume loss and mild bilateral periventricular and central white matter diminished attenuation which is nonspecific but likely to represent microvascular disease. No acute intracranial abnormality. Head CT 08/09/23 00:20 IMPRESSION: Cerebral volume loss and mild bilateral periventricular and central white matter diminished attenuation which is nonspecific but likely to represent microvascular disease. No acute intracranial abnormality. Lumbar Spine CT 08/09/23 00:20 IMPRESSION: Postoperative and degenerative change of the lumbar spine. No evidence for fracture or malalignment Chest X-Ray 08/09/23 03:28 IMPRESSION: Linear left lung base opacity possibly atelectasis versus minimal pleural fluid with atelectasis. No other significant abnormality seen. Chest X-Ray 08/10/23 19:45 IMPRESSION: Question small bilateral pleural effusions. Mental Status Exam Mental Status Exam Narrative: sleeping heavily, not rousable to voice or shoulder squeeze Medications Medications Current Medications Acetaminophen (Acetaminophen 325 Mg Tablet) 650 mg PO Q6H PRN PRN Reason: Pain, Mild (Pain Scale 1-3) Aspirin (Aspirin 81 Mg Tab.Chew) 81 mg PO DAILY [facility] Last Admin: 08/12/23 08:10 Dose: 81 mg Atorvastatin Calcium (Atorvastatin Calcium 40 Mg Tablet) 40 mg PO DAILY [facility] Last Admin: 08/10/23 08:23 Dose: 40 mg Benzocaine (Throat Lozenge, Medicated Lozenge) 1 lozenge MUCOUS MEM Q2H PRN PRN Reason: Sore Throat Last Admin: 08/10/23 15:30 Dose: 1 lozenge Dextrose (Dextrose 50 % 25 Gm/50 Ml Syringe) 25 gm IVPUSH Q15M PRN; Protocol PRN Reason: per Hypoglycemia Standing Ord. Divalproex Sodium (Divalproex Sodium Sprinkles 125 Mg Cap.) 125 mg PO TID [facility] Last Admin: 08/12/23 08:10 Dose: 125 mg Divalproex Sodium (Divalproex Sodium 250 Mg Tablet.) 250 mg PO TID [facility] Last Admin: 08/12/23 08:10 Dose: 250 mg Fenofibrate (Fenofibrate 160 Mg Tablet) 160 mg PO DAILY [facility] Last Admin: 08/12/23 08:10 Dose: 160 mg Gabapentin (Gabapentin 300 Mg Capsule) 600 mg PO TID [facility] Glucose (Glucose Gel 15 Gm Gel..Gram.) 15 gm PO Q15M PRN; Protocol PRN Reason: per Hypoglycemia Standing Ord. Ampicillin Sodium/Sulbactam (Sodium 3 gm/ Sodium Chloride) 100 mls @ 200 mls/hr IV Q6H [facility] Last Infusion: 08/12/23 12:33 Dose: Infused Insulin Human Lispro (Insulin Lispro 100 Unit/Ml 3 Ml Vial) 0 unit SUBCUT QIDACHS [facility]; Protocol Last Admin: 08/12/23 11:57 Dose: 4 unit Levetiracetam (Levetiracetam 500 Mg Tablet) 500 mg PO BID [facility] Last Admin: 08/12/23 08:10 Dose: 500 mg Melatonin (Melatonin 3 Mg Tablet) 6 mg PO BEDTIME [facility] Last Admin: 08/11/23 21:41 Dose: 6 mg Olanzapine (Olanzapine 10 Mg Tablet) 20 mg PO BEDTIME [facility] Last Admin: 08/11/23 21:41 Dose: 20 mg Ondansetron HCl (Ondansetron Hcl 4 Mg/2 Ml Vial) 4 mg IVPUSH Q8H PRN PRN Reason: Nausea and Vomiting Polyethylene Glycol (Polyethylene Glycol 3350 17 Gm Powd.Pack) 17 gm PO BID [facility] Senna/Docusate Sodium (Sennosides/Docusate Sodium Tablet) 2 tab PO BID [facility] Sodium Chloride (0.9 % Sodium Chloride Flush 3 Ml Syringe) 3 ml IVFLUSH QSHIFT [facility] Last Admin: 08/12/23 08:11 Dose: Not Given Trazodone HCl (Trazodone Hcl 100 Mg Tablet) 100 mg PO BEDTIME [facility] Warfarin Sodium (Warfarin Sodium 4 Mg Tablet) 4 mg PO DAILY@1800 [facility] Last Admin: 08/11/23 17:37 Dose: 4 mg Warfarin Sodium (Warfarin Sodium 3 Mg Tablet) 3 mg PO ONCE@1800 ONE Stop: 08/12/23 18:01 Allergies Allergies Allergy/AdvReac Type Severity Reaction Status Date / Time No Known Allergies Allergy Verified 08/08/23 21:44 Assessment & Plan Assessment & Plan (1) Schizoaffective disorder: Status: Acute Code(s): F25.9 - Schizoaffective disorder, unspecified Plan sedation fever, mental status change, CK elevation of some concern for NMS. no rigidity or autonomic instability, so less likely. CK coming down now in any case as neuroleptic continued, so this diagnosis is ruled out. per discussion with Dr. Meza, pt is on moderate dose VPA and relatively high dose zyprexa. presumably he has a bipolar diathesis illness. in that case, if he is provided with proper doses of mood stabilizer and anti-psychotic, he should be able to sleep adequately. he should not require trazodone or remeron for sleep. it was recommended that remeron be discontinued and trazodone decreased to 100 mg at HS for now. if pt experiences insomnia, increased doses of zyprexa and/or VPA should be pursued. regarding gabapentin, at 2700 mg per day it is likely being used as a treatment for neuropathic pain. it is not an effective mood stabilizer and should not be considered an essential part of this patient's psychiatric regimen. dosing may be reduced if felt safe from a seizure prophylaxis perspective, while monitoring pt's pain levels. when this patient was seen by me two days ago, i did not have the impression he was necessarily encephalopathic. his behavior was suitably explained by non-compliance with psychiatric medications in someone with a schizoaffective disorder or bipolar disorder diagnosis. i am unable to assess his mental status today due to sedation. i recommend continuing olanzapine and VPA as this patient's primary mental health regimen. after 4 days on present VPA dosing, check a level and titrate or taper as indicated to a serum level between 50 and 100. continue zyprexa at present dosing for now. Total time managing care of this patient today __45__ minutes.
[2023-08-12] MEDS: Lactulose 20 GM/30 ML SOLUTION PO (14:45)
[2023-08-12] MEDS: Sennosides/Docusate Sodium TABLET 2 TAB PO (14:45)
[2023-08-12] MEDS: polyethylene glycoL 3350 17 GM POWD.PACK PO (14:45)
[2023-08-12] MEDS: Gabapentin 300 MG CAPSULE 600 MG PO ×2 (14:46→22:15)
[2023-08-12] MEDS: 0.9 % Sodium Chloride Flush 3 ML SYRINGE IVFLUSH (16:45)
[2023-08-12 16:51] LABS: Glucose, Whole Blood 178 mg/dL (60-115)
[2023-08-12 17:59] LABS: Glucose, Whole Blood 184 mg/dL (60-115)
[2023-08-12] MEDS: Warfarin Sodium 4 MG TABLET PO (18:03)
[2023-08-12] MEDS: Warfarin Sodium 3 MG TABLET PO (18:03)
--- NOTE | 2023-08-12 18:09 | PC.NURSE ---
RN entered pt's room to administer Coumadin , pt was difficult to arouse , not responded to sternal rub, keeping his eyes tightly closed , moaning, Vitals were taken, BS 184. Suddely he opened his eyes and started to swear. DR Meza was notified about pt's behavior.
[2023-08-12 20:53] LABS: Glucose, Whole Blood 136 mg/dL (60-115)
[2023-08-12] MEDS: OLANZapine 10 MG TABLET 20 MG PO (22:15)
[2023-08-12] MEDS: Melatonin 3 MG TABLET 6 MG PO (22:15)
[2023-08-12] MEDS: traZODone HCL 100 MG TABLET PO (22:16)
[2023-08-13] MEDS: 0.9 % Sodium Chloride Flush 3 ML SYRINGE IVFLUSH ×4 (00:15→22:34)
[2023-08-13] MEDS: Ampicillin Sodium/Sulbactam Na 3 GM in 0.9 % Sodium Chloride 100 ML IV ×4 (06:01→22:40)
[2023-08-13 07:21] VITALS: BP 162/77; PULSE 92; RESP 18; TEMP 36.4; O2SAT 92
[2023-08-13 07:23] LABS: INTERNATIONAL NORM RATIO 2.8 (0.9-1.1); Prothrombin Time 33.9 SEC (11.1-13.3)
[2023-08-13 07:52] LABS: Glucose, Whole Blood 187 mg/dL (60-115)
[2023-08-13] MEDS: Insulin Lispro 100 UNIT/ML 3 ML VIAL SUBCUT ×4 (08:00→22:46)
[2023-08-13] MEDS: Fenofibrate 160 MG TABLET PO (08:01)
[2023-08-13] MEDS: levETIRAcetam 500 MG TABLET PO ×2 (08:01→22:35)
[2023-08-13] MEDS: Gabapentin 300 MG CAPSULE 600 MG PO ×3 (08:01→22:35)
[2023-08-13] MEDS: Divalproex Sodium Sprinkles 125 MG CAP.DR.SPR PO ×3 (08:01→22:35)
[2023-08-13] MEDS: Divalproex Sodium 250 MG TABLET.DR PO ×3 (08:01→22:35)
[2023-08-13] MEDS: Aspirin 81 MG TAB.CHEW PO (08:01)
[2023-08-13 11:18] VITALS: BP 142/67; PULSE 87; RESP 18; TEMP 36.3; O2SAT 93
[2023-08-13 11:32] LABS: Glucose, Whole Blood 252 mg/dL (60-115)
--- NOTE | 2023-08-13 11:39 | HO.PM.IMPN ---
Subjective Subjective Date of Service: 08/13/23 Interval History: disorganized speech on 2L O2 this morning had brief run of regular narrow-complex tachycardia this AM Review of Systems Review of Systems: Yes Unobtainable due to mental status Physical Exam Vital Signs: Vital Signs: Last Vital Signs Temp 97.4 F 08/13/23 11:18 Pulse 87 08/13/23 11:18 Resp 18 08/13/23 11:18 BP 142/67 H 08/13/23 11:18 Pulse Ox 93 08/13/23 11:18 O2 Del Method Room Air 08/13/23 11:18 O2 Flow Rate 2 08/13/23 07:21 BMI result Body Mass Index 28.3 Gen: in no acute distress HEENT: sclera anicteric, moist mucus membranes Neck: supple Lungs: clear to auscultation bilaterally Heart: regular rate and rhythm, no murmurs Abd: soft, non-tender, somewhat distended Ext: no edema Skin: warm/well-perfused Neuro: alert, unable to assess orientation Psych: rambling/disorganized speech, impaired insight Objective Data Active Medications Acetaminophen (Acetaminophen 325 Mg Tablet) 650 mg PO Q6H PRN PRN Reason: Pain, Mild (Pain Scale 1-3) Aspirin (Aspirin 81 Mg Tab.Chew) 81 mg PO DAILY [facility] Last Admin: 08/13/23 08:01 Dose: 81 mg Documented By: BENJY Atorvastatin Calcium (Atorvastatin Calcium 40 Mg Tablet) 40 mg PO DAILY [facility] Last Admin: 08/10/23 08:23 Dose: 40 mg Documented By: RITO Benzocaine (Throat Lozenge, Medicated Lozenge) 1 lozenge MUCOUS MEM Q2H PRN PRN Reason: Sore Throat Last Admin: 08/10/23 15:30 Dose: 1 lozenge Documented By: RITO Dextrose (Dextrose 50 % 25 Gm/50 Ml Syringe) 25 gm IVPUSH Q15M PRN; Protocol PRN Reason: per Hypoglycemia Standing Ord. Divalproex Sodium (Divalproex Sodium Sprinkles 125 Mg Cap) 125 mg PO TID [facility] Last Admin: 08/13/23 08:01 Dose: 125 mg Documented By: BENJY Divalproex Sodium (Divalproex Sodium 250 Mg Estefania.) 250 mg PO TID [facility] Last Admin: 08/13/23 08:01 Dose: 250 mg Documented By: BENJY Fenofibrate (Fenofibrate 160 Mg Tablet) 160 mg PO DAILY [facility] Last Admin: 08/13/23 08:01 Dose: 160 mg Documented By: BENJY Gabapentin (Gabapentin 300 Mg Capsule) 600 mg PO TID [facility] Last Admin: 08/13/23 08:01 Dose: 600 mg Documented By: BENJY Glucose (Glucose Gel 15 Gm Gel..Gram.) 15 gm PO Q15M PRN; Protocol PRN Reason: per Hypoglycemia Standing Ord. Ampicillin Sodium/Sulbactam (Sodium 3 gm/ Sodium Chloride) 100 mls @ 200 mls/hr IV Q6H [facility] Last Admin: 08/13/23 11:20 Dose: 200 mls/hr Documented By: BENJY Insulin Human Lispro (Insulin Lispro 100 Unit/Ml 3 Ml Vial) 0 unit SUBCUT QIDACHS [facility]; Protocol Last Admin: 08/13/23 11:20 Dose: 6 unit Documented By: BENJY Levetiracetam (Levetiracetam 500 Mg Tablet) 500 mg PO BID [facility] Last Admin: 08/13/23 08:01 Dose: 500 mg Documented By: BENJY Melatonin (Melatonin 3 Mg Tablet) 6 mg PO BEDTIME [facility] Last Admin: 08/12/23 22:15 Dose: 6 mg Documented By: JEN Olanzapine (Olanzapine 10 Mg Tablet) 20 mg PO BEDTIME [facility] Last Admin: 08/12/23 22:15 Dose: 20 mg Documented By: JEN Ondansetron HCl (Ondansetron Hcl 4 Mg/2 Ml Vial) 4 mg IVPUSH Q8H PRN PRN Reason: Nausea and Vomiting Polyethylene Glycol (Polyethylene Glycol 3350 17 Gm Powd.Pack) 17 gm PO BID [facility] Last Admin: 08/13/23 08:02 Dose: Not Given Documented By: BENJY Non-Admin Reason: loose BM Senna/Docusate Sodium (Sennosides/Docusate Sodium Tablet) 2 tab PO BID [facility] Last Admin: 08/13/23 08:02 Dose: Not Given Documented By: BENJY Non-Admin Reason: loose BM Sodium Chloride (0.9 % Sodium Chloride Flush 3 Ml Syringe) 3 ml IVFLUSH QSHIFT [facility] Last Admin: 08/13/23 08:01 Dose: 3 ml Documented By: BENJY Trazodone HCl (Trazodone Hcl 100 Mg Tablet) 100 mg PO BEDTIME [facility] Last Admin: 08/12/23 22:16 Dose: 100 mg Documented By: JEN Warfarin Sodium (Warfarin Sodium 4 Mg Tablet) 4 mg PO DAILY@1800 [facility] Last Admin: 08/12/23 18:03 Dose: 4 mg Documented By: JEN Labs 08/12/23 07:57 08/11/23 09:32 Labs: Laboratory Results - last 24 hr 08/12/23 08/12/23 08/12/23 16:48 17:49 20:48 Hold Purple Top PT INR POC Glucose 178 H 184 H 136 H 08/13/23 08/13/23 08/13/23 06:39 07:19 11:17 Hold Purple Top SEE NOTE PT 33.9 H D INR 2.8 H POC Glucose 187 H 252 H Microbiology Microbiology Results: Microbiology 08/10/23 20:09 Blood Culture - Preliminary Blood - Venous No growth after 48 hours. 08/10/23 20:09 Blood Culture - Preliminary Blood - Venous No growth after 48 hours. 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 was awaiting STR placement in ED developed acute agitation, fever to 100.6 after choking on dinner prior night found to have rhabdomyolysis and aspiration pneumonia acute hypoxic resp failure due to aspiration pneumonia - IV amp/sulbactam d4, BCx negative - 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 normalized after IV fluids seizure disorder - could have had a seizure given noncompliance, fell out of bed and passed out on day of arrival, valproate level subtherapeutic - resumed levetiracetam + valproate, Neurology consulted, EEG pending mechanical aortic valve replacement, subtherapeutic INR - INR now therapeutic after extra doses of warfarin and enoxaparin bridge DM2 - correction-dose lispro, hold OHGs HLD - continue statin, fibrate DM neuropathy - continue gabapentin but dose reduced due to sedation VTE ppx - warfarin dispo - eventual STR In my clinical judgment, the patient requires continued inpatient hospitalization for the following reasons: IV ABX, placement Total time managing care of this patient today: 40 minutes. Quality Stroke Does the patient have a stroke diagnosis?: No VTE Prior VTE?: No VTE Risk Level:: Medical - moderate - high VTE Device Contraindication: Treatment Not Indicated VTE Drug Contraindication: N/A - Med Ordered
[2023-08-13] MEDS: NeoMY/Polymyx/Bacit/Ointment 14 GM Tube TOPICAL ×2 (14:35→22:45)
[2023-08-13 15:16] VITALS: BP 132/76; PULSE 89; RESP 18; TEMP 36.6; O2SAT 93
[2023-08-13 17:08] LABS: Glucose, Whole Blood 158 mg/dL (60-115)
[2023-08-13] MEDS: Warfarin Sodium 4 MG TABLET PO (17:35)
[2023-08-13 20:00] VITALS: BP 153/70; PULSE 90; RESP 18; TEMP 36.4; O2SAT 92
[2023-08-13 22:27] LABS: Glucose, Whole Blood 178 mg/dL (60-115)
[2023-08-13] MEDS: OLANZapine 10 MG TABLET 20 MG PO (22:34)
[2023-08-13] MEDS: Melatonin 3 MG TABLET 6 MG PO (22:35)
[2023-08-13] MEDS: traZODone HCL 100 MG TABLET PO (22:36)
[2023-08-13 23:48] VITALS: BP 145/85; PULSE 88; RESP 18; TEMP 36.9; O2SAT 92
[2023-08-14] MEDS: Ampicillin Sodium/Sulbactam Na 3 GM in 0.9 % Sodium Chloride 100 ML IV (05:55)
[2023-08-14 07:02] LABS: INTERNATIONAL NORM RATIO 2.9 (0.9-1.1); Prothrombin Time 35.1 SEC (11.1-13.3)
[2023-08-14 07:30] LABS: Glucose, Whole Blood 170 mg/dL (60-115)
[2023-08-14 07:36] VITALS: BP 134/75; PULSE 95; RESP 20; TEMP 36.2; O2SAT 95
[2023-08-14] MEDS: Insulin Lispro 100 UNIT/ML 3 ML VIAL SUBCUT ×4 (08:09→22:13)
[2023-08-14] MEDS: Aspirin 81 MG TAB.CHEW PO (08:10)
[2023-08-14] MEDS: Divalproex Sodium 250 MG TABLET.DR PO ×3 (08:10→22:12)
[2023-08-14] MEDS: Divalproex Sodium Sprinkles 125 MG CAP.DR.SPR PO ×3 (08:10→22:12)
[2023-08-14] MEDS: Fenofibrate 160 MG TABLET PO (08:10)
[2023-08-14] MEDS: levETIRAcetam 500 MG TABLET PO ×2 (08:10→22:12)
[2023-08-14] MEDS: Gabapentin 300 MG CAPSULE 600 MG PO ×3 (08:10→22:11)
[2023-08-14] MEDS: Acetaminophen 325 MG TABLET 650 MG PO (08:14)
[2023-08-14] MEDS: 0.9 % Sodium Chloride Flush 3 ML SYRINGE IVFLUSH ×2 (08:15→13:51)
[2023-08-14] MEDS: NeoMY/Polymyx/Bacit/Ointment 14 GM Tube TOPICAL ×3 (08:21→22:36)
--- NOTE | 2023-08-14 10:13 | P.PNIM_ITS ---
Subjective Subjective Date of Service: 08/14/23 Interval History: disorganized speech unable to obtain history as a result Review of Systems Review of Systems: Yes Unobtainable due to mental status Physical Exam 2 Vital Signs: Vital Signs: Last Vital Signs Temp 97.2 F 08/14/23 07:36 Pulse 95 08/14/23 07:36 Resp 20 08/14/23 07:36 BP 134/75 08/14/23 07:36 Pulse Ox 95 08/14/23 07:36 O2 Del Method Room Air 08/14/23 07:36 O2 Flow Rate 2 08/13/23 07:21 BMI result Body Mass Index 28.3 Gen: in no acute distress HEENT: sclera anicteric, moist mucus membranes Neck: supple Lungs: clear to auscultation bilaterally Heart: regular rate and rhythm, no murmurs Abd: soft, non-tender, somewhat distended Ext: no edema Skin: warm/well-perfused Neuro: alert, unable to assess orientation Psych: rambling/disorganized speech, impaired insight Objective Data Active Medications Acetaminophen (Acetaminophen 325 Mg Tablet) 650 mg PO Q6H PRN PRN Reason: Pain, Mild (Pain Scale 1-3) Last Admin: 08/14/23 08:14 Dose: 650 mg Documented By: BENJY Aspirin (Aspirin 81 Mg Tab.Chew) 81 mg PO DAILY [facility] Last Admin: 08/14/23 08:10 Dose: 81 mg Documented By: BENJY Atorvastatin Calcium (Atorvastatin Calcium 40 Mg Tablet) 40 mg PO DAILY [facility] Last Admin: 08/10/23 08:23 Dose: 40 mg Documented By: RITO Benzocaine (Throat Lozenge, Medicated Lozenge) 1 lozenge MUCOUS MEM Q2H PRN PRN Reason: Sore Throat Last Admin: 08/10/23 15:30 Dose: 1 lozenge Documented By: RITO Dextrose (Dextrose 50 % 25 Gm/50 Ml Syringe) 25 gm IVPUSH Q15M PRN; Protocol PRN Reason: per Hypoglycemia Standing Ord. Divalproex Sodium (Divalproex Sodium Sprinkles 125 Mg Cap) 125 mg PO TID [facility] Last Admin: 08/14/23 08:10 Dose: 125 mg Documented By: BENJY Divalproex Sodium (Divalproex Sodium 250 Mg Tablet.) 250 mg PO TID [facility] Last Admin: 08/14/23 08:10 Dose: 250 mg Documented By: BENJY Fenofibrate (Fenofibrate 160 Mg Tablet) 160 mg PO DAILY [facility] Last Admin: 08/14/23 08:10 Dose: 160 mg Documented By: BENJY Gabapentin (Gabapentin 300 Mg Capsule) 600 mg PO TID [facility] Last Admin: 08/14/23 08:10 Dose: 600 mg Documented By: BENJY Glucose (Glucose Gel 15 Gm Gel..Gram.) 15 gm PO Q15M PRN; Protocol PRN Reason: per Hypoglycemia Standing Ord. Ampicillin Sodium/Sulbactam (Sodium 3 gm/ Sodium Chloride) 100 mls @ 200 mls/hr IV Q6H [facility] Last Infusion: 08/14/23 06:33 Dose: Infused Documented By: EMIGDIO Insulin Human Lispro (Insulin Lispro 100 Unit/Ml 3 Ml Vial) 0 unit SUBCUT QIDACHS [facility]; Protocol Last Admin: 08/14/23 08:09 Dose: 2 unit Documented By: BENJY Levetiracetam (Levetiracetam 500 Mg Tablet) 500 mg PO BID [facility] Last Admin: 08/14/23 08:10 Dose: 500 mg Documented By: BENJY Melatonin (Melatonin 3 Mg Tablet) 6 mg PO BEDTIME [facility] Last Admin: 08/13/23 22:35 Dose: 6 mg Documented By: EMIGDIO Neomycin/Polymyxin/Bacitracin (Neomy/Polymyx/Bacit/Ointment 14 Gm Tube) 1 gm TOPICAL TID [facility]; Protocol Last Admin: 08/14/23 08:21 Dose: 1 gm Documented By: BENJY Olanzapine (Olanzapine 10 Mg Tablet) 20 mg PO BEDTIME [facility] Last Admin: 08/13/23 22:34 Dose: 20 mg Documented By: EMIGDIO Ondansetron HCl (Ondansetron Hcl 4 Mg/2 Ml Vial) 4 mg IVPUSH Q8H PRN PRN Reason: Nausea and Vomiting Polyethylene Glycol (Polyethylene Glycol 3350 17 Gm Powd.Pack) 17 gm PO BID [facility] Last Admin: 08/14/23 08:21 Dose: Not Given Documented By: BENJY Non-Admin Reason: loose BM Senna/Docusate Sodium (Sennosides/Docusate Sodium Tablet) 2 tab PO BID [facility] Last Admin: 08/14/23 08:22 Dose: Not Given Documented By: BENJY Non-Admin Reason: loose BM Sodium Chloride (0.9 % Sodium Chloride Flush 3 Ml Syringe) 3 ml IVFLUSH QSHIFT [facility] Last Admin: 08/14/23 08:15 Dose: 3 ml Documented By: BENJY Trazodone HCl (Trazodone Hcl 100 Mg Tablet) 100 mg PO BEDTIME [facility] Last Admin: 08/13/23 22:36 Dose: 100 mg Documented By: LAFLAMWoodrow Warfarin Sodium (Warfarin Sodium 4 Mg Tablet) 4 mg PO DAILY@1800 [facility] Last Admin: 08/13/23 17:35 Dose: 4 mg Documented By: BENJY Labs 08/12/23 07:57 08/11/23 09:32 Labs: Laboratory Results - last 24 hr 08/13/23 08/13/23 08/13/23 11:17 16:50 22:24 Hold Purple Top PT INR POC Glucose 252 H 158 H 178 H 08/14/23 08/14/23 06:22 07:23 Hold Purple Top SEE NOTE PT 35.1 H INR 2.9 H POC Glucose 170 H Assessment and Plan (1) Aspiration pneumonia: Status: Acute (2) Encephalopathy: Status: Acute (3) Fever: Status: Acute (4) Schizoaffective disorder: Status: Acute Plan d5 62yo M with DM2, schizoaffective disorder, seizure disorder, mild cognitive impairment, mild intellectual disability, HLD, HTN, GERD, hx AoVR with mechanical valve on warfarin presented to ED 08/08/23 after falling out of bed, reporting he passed out possibly not taking medication as his sister is out of state and 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 Cardiology consult + TTE pending. rhabdomyolysis - NS d/c'ed once CPK below 1000 agitated delirium - seen by Psychiatry, felt due to noncompliance with medications- resumed olanzapine + valproate but stopped mirtazapine and halved trazodonse dose due to excess sedation - Neurology recommended dose reductions of trazodone + gabapentin; done lactic acidosis - not septic- due to seizure? normalized after IV fluids seizure disorder - could have had a seizure given noncompliance, fell out of bed and passed out on day of arrival, valproate level subtherapeutic - resumed levetiracetam + valproate, Neurology consulted, EEG 08/12/23 unremarkable mechanical aortic valve replacement, subtherapeutic INR - INR now therapeutic after extra doses of warfarin and enoxaparin bridge DM2 - correction-dose lispro, hold OHGs HLD - continue statin, fibrate DM neuropathy - continue gabapentin but dose reduced due to sedation VTE ppx - warfarin dispo - eventual STR In my clinical judgment, the patient requires continued inpatient hospitalization for the following reasons: cardiac workup Total time managing care of this patient today: 35 minutes. Quality Stroke Does the patient have a stroke diagnosis?: No VTE Prior VTE?: No VTE Risk Level:: Medical - moderate - high VTE Device Contraindication: Treatment Not Indicated VTE Drug Contraindication: N/A - Med Ordered
[2023-08-14 11:07] VITALS: BP 129/63; PULSE 82; RESP 18; TEMP 36.2; O2SAT 95
--- NOTE | 2023-08-14 11:11 | PM.CNCAR ---
History of Present Illness History of Present Illness Date of Service: 08/14/23 Chief complaint: Fever, SIRS, encephalopathy Narrative: This is a cardiology consultation regarding NSVT type episode on telemetry. Patient himself cannot give any history whatsoever. Current admissions because of acute respiratory failure/aspiration, delirium in question of seizure. In this context, he was treated but on telemetry he had a short run of suspected nonsustained VT and his fear consulted. Patient himself not able to give any meaningful information. But in the history, there is mention of mechanical aortic valve. Review of Systems Review of Systems: Patient unable to give any review of systems [facility] Past Medical History Medical History Mild intellectual disability Mild cognitive impairment Chronic anemia Asthma Seizure disorder Hypertension Hyperlipidemia Schizoaffective disorder Current use of halfway anticoagulation Type 2 diabetes mellitus Family History Pertinent family history: Unable to obtain Surgical History Surgical History H/O mechanical aortic valve replacement Social History Social History Patient Tobacco Use Status: Tobacco use Unknown Smoked in Last 30 Days: No Use of substances other than those prescribed or required for medical reasons: No Currently Displaying Signs/Symptoms of Drug Intoxication Withdrawal: No Advance Directives: No Advance Directives Information Provided: Yes Healthcare Proxy: Yes (Sister Mary Lou Solomon (lives 10 minutes away, but currently in [place])) Guardian: No Nutrition Risks: Difficulty swallowing Meds Allergies Allergy/AdvReac Type Severity Reaction Status Date / Time No Known Allergies Allergy Verified 08/08/23 21:44 Active Medications: Current Medications Acetaminophen (Acetaminophen 325 Mg Tablet) 650 mg PO Q6H PRN PRN Reason: Pain, Mild (Pain Scale 1-3) Last Admin: 08/14/23 08:14 Dose: 650 mg Amoxicillin/Clavulanate Potassium (Amoxicillin/Potassium Clav 875 Mg Tablet) 875 mg PO Q12H [facility] Stop: 08/16/23 22:46 Aspirin (Aspirin 81 Mg Tab.Chew) 81 mg PO DAILY [facility] Last Admin: 08/14/23 08:10 Dose: 81 mg Atorvastatin Calcium (Atorvastatin Calcium 40 Mg Tablet) 40 mg PO DAILY [facility] Last Admin: 08/10/23 08:23 Dose: 40 mg Benzocaine (Throat Lozenge, Medicated Lozenge) 1 lozenge MUCOUS MEM Q2H PRN PRN Reason: Sore Throat Last Admin: 08/10/23 15:30 Dose: 1 lozenge Dextrose (Dextrose 50 % 25 Gm/50 Ml Syringe) 25 gm IVPUSH Q15M PRN; Protocol PRN Reason: per Hypoglycemia Standing Ord. Divalproex Sodium (Divalproex Sodium Sprinkles 125 Mg Cap.Dr.Spr) 125 mg PO TID [facility] Last Admin: 08/14/23 08:10 Dose: 125 mg Divalproex Sodium (Divalproex Sodium 250 Mg Tablet.Dr) 250 mg PO TID [facility] Last Admin: 08/14/23 08:10 Dose: 250 mg Fenofibrate (Fenofibrate 160 Mg Tablet) 160 mg PO DAILY [facility] Last Admin: 08/14/23 08:10 Dose: 160 mg Gabapentin (Gabapentin 300 Mg Capsule) 600 mg PO TID [facility] Last Admin: 08/14/23 08:10 Dose: 600 mg Glucose (Glucose Gel 15 Gm Gel..Gram.) 15 gm PO Q15M PRN; Protocol PRN Reason: per Hypoglycemia Standing Ord. Insulin Human Lispro (Insulin Lispro 100 Unit/Ml 3 Ml Vial) 0 unit SUBCUT QIDACHS [facility]; Protocol Last Admin: 08/14/23 08:09 Dose: 2 unit Levetiracetam (Levetiracetam 500 Mg Tablet) 500 mg PO BID [facility] Last Admin: 08/14/23 08:10 Dose: 500 mg Melatonin (Melatonin 3 Mg Tablet) 6 mg PO BEDTIME [facility] Last Admin: 08/13/23 22:35 Dose: 6 mg Neomycin/Polymyxin/Bacitracin (Neomy/Polymyx/Bacit/Ointment 14 Gm Tube) 1 gm TOPICAL TID [facility]; Protocol Last Admin: 08/14/23 08:21 Dose: 1 gm Olanzapine (Olanzapine 10 Mg Tablet) 20 mg PO BEDTIME [facility] Last Admin: 08/13/23 22:34 Dose: 20 mg Ondansetron HCl (Ondansetron Hcl 4 Mg/2 Ml Vial) 4 mg IVPUSH Q8H PRN PRN Reason: Nausea and Vomiting Polyethylene Glycol (Polyethylene Glycol 3350 17 Gm Powd.Pack) 17 gm PO BID [facility] Last Admin: 08/14/23 08:21 Dose: Not Given Senna/Docusate Sodium (Sennosides/Docusate Sodium Tablet) 2 tab PO BID [facility] Last Admin: 08/14/23 08:22 Dose: Not Given Sodium Chloride (0.9 % Sodium Chloride Flush 3 Ml Syringe) 3 ml IVFLUSH QSHIFT [facility] Last Admin: 08/14/23 08:15 Dose: 3 ml Trazodone HCl (Trazodone Hcl 100 Mg Tablet) 100 mg PO BEDTIME [facility] Last Admin: 08/13/23 22:36 Dose: 100 mg Warfarin Sodium (Warfarin Sodium 4 Mg Tablet) 4 mg PO DAILY@1800 [facility] Last Admin: 08/13/23 17:35 Dose: 4 mg Home Medications Medication Instructions Recorded Confirmed Last Taken Type aspirin 81 mg chewable tablet 1 tab PO DAILY 08/09/23 08/09/23 Unknown History atorvastatin 40 mg tablet 40 mg PO DAILY 08/09/23 08/09/23 Unknown History divalproex 125 mg tablet,delayed 125 mg PO TID 08/09/23 08/09/23 Unknown History release divalproex 250 mg tablet,delayed 250 mg PO TID 08/09/23 08/09/23 Unknown History release fenofibrate nanocrystallized 145 145 mg PO DAILY 08/09/23 08/09/23 Unknown History mg tablet gabapentin 300 mg capsule 900 mg PO TID 08/09/23 08/09/23 Unknown History glipizide 5 mg tablet 5 mg PO DAILY@0730 08/09/23 08/09/23 Unknown History levetiracetam 500 mg tablet 500 mg PO BID 08/09/23 08/09/23 Unknown History melatonin 3 mg tablet 6 mg PO BEDTIME 08/09/23 08/09/23 Unknown History metformin 1,000 mg tablet 1,000 mg PO BID 08/09/23 08/09/23 Unknown History mirtazapine 7.5 mg tablet 7.5 mg PO BEDTIME 08/09/23 08/09/23 Unknown History nystatin 100,000 unit/gram topical 1 appl topical BID 08/09/23 08/09/23 Unknown History powder (Nystop) olanzapine 20 mg tablet 20 mg PO BEDTIME 08/09/23 08/09/23 Unknown History trazodone 100 mg tablet 200 mg PO BEDTIME 08/09/23 08/09/23 Unknown History warfarin 4 mg tablet 4 mg PO DAILY 08/09/23 08/09/23 Unknown History Physical Exam Vital Signs: Vital Signs: Last Vital Signs Temp 97.2 F 08/14/23 11:07 Pulse 82 08/14/23 11:07 Resp 18 08/14/23 11:07 BP 129/63 08/14/23 11:07 Pulse Ox 95 08/14/23 11:07 O2 Del Method Room Air 08/14/23 11:07 O2 Flow Rate 2 08/13/23 07:21 BMI result Body Mass Index 28.3 Const: General: comfortable and no acute distress Orientation/consciousness: patient oriented x3 HEENT: Other: Unremarkable Head: Yes normal to inspection Neck: Neck: Yes normal visual inspection Chest: Chest palpation & inspection: normal inspection of the chest Resp: Auscultation: clear to auscultation bilaterally Cardio: Other: Prosthetic heart sounds Palpation: normal PMI GI: Palpation (GI): Soft to palpation Back/Spine/Pelvis: Other: unremarkable Skin: General skin exam: no rashes or lesions noted Neuro: General: patient oriented x3 Extrem: General: Yes normal to inspection Psych: Mental Status: mental status grossly abnormal Objective Labs and Meds 08/12/23 07:57 08/11/23 09:32 Lab results: Laboratory Results - last 24 hr 08/13/23 08/13/23 08/13/23 11:17 16:50 22:24 Hold Purple Top PT INR POC Glucose 252 H 158 H 178 H 08/14/23 08/14/23 06:22 07:23 Hold Purple Top SEE NOTE PT 35.1 H INR 2.9 H POC Glucose 170 H ECG Interpretation: EKG with sinus tachycardia at 01:24/Min and inferior as well as anterolateral slight ST depression and possible left atrial enlargement. On telemetry, short run of probably NSVT at a rate of 125/Min. Assessment and Plan (1) NSVT (nonsustained ventricular tachycardia): Status: Acute (2) H/O mechanical aortic valve replacement: Status: Acute Plan Telemetry had a brief episode of nonsustained ventricular tachycardia. Less likely supraventricular with aberrancy but also possible. On exam, he has a sternotomy scar and also has mechanical heart sounds. Stated as mechanical AVR in documentation, but no further information. High sensitivity troponins are unremarkable. Unknown cardiac function. Recommend getting an echocardiogram for further evaluation. Discussed with Dr. Meza. Procedures Date of Service Date of Service: 08/14/23
[2023-08-14] MEDS: Amoxicillin/Potassium Clav 875 MG TABLET PO ×2 (11:34→22:11)
[2023-08-14 11:35] LABS: Glucose, Whole Blood 264 mg/dL (60-115)
--- NOTE | 2023-08-14 11:45 | PC.NURSE ---
this RN entered pt's room. found pt was asleep. responded to sternal rubs but closed his eyes tightly. vital signs and BS was taken. Then, pt opened his eyes and started talking. MD Dr Meza notified.
[2023-08-14] MEDS: Throat Lozenge, Medicated LOZENGE 1 LOZENGE MUCOUS MEM (13:51)
[2023-08-14 16:00] VITALS: BP 125/68; PULSE 83; RESP 18; TEMP 35.9; O2SAT 96
[2023-08-14 16:40] LABS: Glucose, Whole Blood 174 mg/dL (60-115)
[2023-08-14] MEDS: LORazepam 2 MG/ML VIAL 0.5 MG IVPUSH (17:27)
[2023-08-14] MEDS: Warfarin Sodium 4 MG TABLET PO (17:30)
[2023-08-14 20:00] VITALS: BP 138/73; PULSE 84; RESP 18; TEMP 35.8; O2SAT 94
[2023-08-14 21:17] LABS: Glucose, Whole Blood 201 mg/dL (60-115)
[2023-08-14 21:32] VITALS: TEMP 36.1
[2023-08-14 21:48] VITALS: BP 140/73; PULSE 79; RESP 18; TEMP 36.1
[2023-08-14] MEDS: OLANZapine 10 MG TABLET 20 MG PO (22:11)
[2023-08-14] MEDS: traZODone HCL 100 MG TABLET PO (22:16)
[2023-08-14] MEDS: Melatonin 3 MG TABLET 6 MG PO (22:39)
[2023-08-15] VITALS: BP 120/68; PULSE 109; RESP 18; TEMP 36.4; O2SAT 92
[2023-08-15 04:00] VITALS: RESP 16
--- NOTE | 2023-08-15 07:00 | CA_ITS ---
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 There is moderately increased left ventricular wall thickness. The left ventricular systolic function is low normal. The visually estimated ejection fraction is between 50-55%. - E/E prime ratio is between 8 and 15 consistent with indeterminate filling pressures. - There is no aortic valve stenosis. There is no aortic valve regurgitation. Mechanical aortic valve is not well visualized. Findings Left Ventricle Normal left ventricular cavity size. There is moderately increased left ventricular wall thickness. The left ventricular systolic function is low normal. The visually estimated ejection fraction is between 50-55%. Regional wall motion abnormalities can not be excluded due to suboptimal endocardial definition. There is paradoxical septal motion consistent with post-operative status. Abnormal diastolic function is noted. Spectral Doppler is indicative of an impaired relaxation filling pattern. E/E prime ratio is between 8 and 15 consistent with indeterminate filling pressures. Right Ventricle Normal right ventricular cavity size and systolic function. Atria The left atrium is normal in size. Aortic Valve There is no aortic valve stenosis. There is no aortic valve regurgitation. Mechanical aortic valve is not well visualized. Mitral Valve Normal mitral valve structure and function. There is no mitral valve regurgitation. There is no mitral valve stenosis. Pulmonic Valve The pulmonic valve was not well visualized. Tricuspid Valve Normal tricuspid valve structure and function. Normal right atrial pressure. There is no evidence of pulmonary hypertension. Great Vessels All visible segments of the aorta are normal in size. Venous The inferior vena cava is normal in size and collapses greater than 50% with inspiration. Pericardium/Pleural Prominent epicardial adipose tissue noted. Prior Study Comparison No prior study available for comparison. Measurements 2D Linear Measurements IVSd: 1.56 0.6-0.9/0.6-1.0 cm LVIDd: 3.73 3.9-5.3/4.2-5.9 cm LVIDd Index: 1.76 2.4-3.2/2.2-3.1 cm/m2 LVIDs: 2.79 2.0-3.6 cm LVPWd: 1.54 0.7-1.1 cm LA Diam: 4.00 2.7-3.8/3.0-4.0 cm LAIDs Index: 1.89 1.5-2.3 cm/m2 LV Mass: 277.39 67-162/88-224 g LV Mass Index: 130.84 43-95/49-115 g/m2 LVOT Diam: 2.10 3.0+(-)1.3 cm Mitral Valve MV Pk E: 0.58 MV PK A: 0.94 MV Decel Time: 170.00 E/A: 0.60 E'Lateral: 7.18 E'Medial: 4.35 E/E' Med: 13.40 E/E' Lat: 8.10 PHT: 50.00 MVA PHT: 4.40 Decel Traill: 3.43 Aortic Valve AoV Pk Arvin: 1.29 AoV Mn Arvin: 0.85 AoV VTI: 0.21 AoV Pk Grad: 7.00 Aov Mn Grad: 3.00 NICANOR Cont.VTI: 2.11 LVOT LVOT Pk Arvin: 0.73 LVOT Mn Arvin: 0.42 LVOT VTI: 0.13 LVOT Pk Grad: 2.00 LVOT Mn Grad: 1.00 LVOT Diam: 2.10 LVOT Area: 3.46 Diastolic Function MV Pk E: 0.58 MV Pk A: 0.94 E/A: 0.60 E'Medial: 4.35 E/E' Med: 13.40 E' Laterial: 7.18 E/E' Lat: 8.10 Right Ventricle TAPSE (mm): 15.50 Tricuspid Valve TR Pk Arvin: 2.24 TR Pk Grad: 20.00 RA Press: 3.00 RVSP: 23.00 Great Vessels Aorta Sinus of Valsalva: 3.00 2.0-3.5 cm Ao Asc: 3.20 2.1-3.4 cm Pulmonary Valve PV Pk Arvin: 0.95 Peak PV Grad: 4.00 Updated in Other Vendor System with Status of Final Ld Ramsay MD electronically signed on 08/15/2023 1:30:47 PM with status of Final
[2023-08-15 07:31] LABS: Glucose, Whole Blood 228 mg/dL (60-115)
[2023-08-15 07:35] VITALS: BP 106/66; PULSE 96; RESP 20; TEMP 36.6; O2SAT 93
[2023-08-15] MEDS: 0.9 % Sodium Chloride Flush 3 ML SYRINGE IVFLUSH (08:05)
[2023-08-15] MEDS: levETIRAcetam 500 MG TABLET PO (08:07)
[2023-08-15] MEDS: polyethylene glycoL 3350 17 GM POWD.PACK PO (08:07)
[2023-08-15] MEDS: Fenofibrate 160 MG TABLET PO (08:07)
[2023-08-15] MEDS: Gabapentin 300 MG CAPSULE 600 MG PO ×2 (08:07→14:46)
[2023-08-15] MEDS: Insulin Lispro 100 UNIT/ML 3 ML VIAL SUBCUT ×2 (08:07→12:07)
[2023-08-15] MEDS: Divalproex Sodium Sprinkles 125 MG CAP.DR.SPR PO ×2 (08:08→14:45)
[2023-08-15] MEDS: Aspirin 81 MG TAB.CHEW PO (08:08)
[2023-08-15] MEDS: Sennosides/Docusate Sodium TABLET 2 TAB PO (08:08)
[2023-08-15] MEDS: Divalproex Sodium 250 MG TABLET.DR PO ×2 (08:08→14:45)
[2023-08-15] MEDS: NeoMY/Polymyx/Bacit/Ointment 14 GM Tube TOPICAL (08:18)
[2023-08-15] MEDS: Amoxicillin/Potassium Clav 875 MG TABLET PO (09:35)
[2023-08-15] MEDS: Throat Lozenge, Medicated LOZENGE 1 LOZENGE MUCOUS MEM (09:35)
[2023-08-15 10:11] LABS: INTERNATIONAL NORM RATIO 3.3 (0.9-1.1); Prothrombin Time 39.8 SEC (11.1-13.3)
[2023-08-15 10:19] LABS: Valproate 34.2 mcg/mL (50.0-100.0)
--- NOTE | 2023-08-15 10:58 | MHC.SL.SWA ---
Speech Pathologist Impression: Risk of aspiration Risk of Aspiration Due to: History of Pneumonia Reduced Cognition Dysphasia Diet Status: No changes Liquid Consistency and Strategies for Safe Swallow: Liquid Intake Recommendation: Thin Liquid Intake Strategies: Small Sips Solid Food Consistency: Dietary Recommendations: Chopped/Advanced (NDD3) Additional Modifications to Solid Foods: Patient presents with swallow function mostly wfl, but presents with risk for aspiration secondary to reduced cognition, poor self monitoring, impulsivity, compulsive talking. Recommend diet Chopped/Advanced to assure manageable consistency of precut food, thin liquids, pills whole in puree or liquid as preferred by patient. Recommend avoid mixed consistencies (cereal and milk, e.g.). Patient will need supervision during meals due to impulsive behaviors putting him at risk for aspiration. Encourage/cue patient to focus on meal and cease talking when eating. Assure that patient is seated up right and not attempting to eat while reclined. Oral Medication Intake: Whole with Puree Please contact the pharmacy regarding appropriate crushable or liquid drug formulations that are available whenever modified delivery is recommended. Compensatory Strategies and Precautions to be Taken for Safe Swallow: Sitting Upright (90 deg) Double Swallow Small Bites and Sips Alternate Liquids/Solids Rate of Ingestion Change Oral Check Avoid Specific Foods Supervision While Eating and Drinking for Safe Swallow: Total Supervision (1:1) Foods to Avoid: Mixed consistencies Swallowing Recommended Treatments: Compens. Strategy Educat. Recommendation for Speech: D/C Superintendent [employer] Clinican/Clinical Fellow: No Supervisory Statement: I have reviewed and agree with the student/clinical fellow's documentation: N/A Speech Language Pathologist: Gerri Villafuerte M.A., CCC-REGISTERED PHYSICAL THERAPIST
--- NOTE | 2023-08-15 11:15 | PM.PNCARD ---
Subjective Subjective Date of Service: 08/15/23 Interval history: Seen examined at bedside. He has encephalopathy and was unable to give any history. Not sure whether this is baseline or not. He was getting echocardiography at the time. Telemetry reviewed. Physical Exam Vital Signs: Last Vital Signs Temp 97.8 F 08/15/23 07:35 Pulse 96 08/15/23 07:35 Resp 20 08/15/23 07:35 BP 106/66 08/15/23 07:35 Pulse Ox 93 08/15/23 07:35 O2 Del Method Room Air 08/15/23 07:35 O2 Flow Rate 2 08/13/23 07:21 BMI result Body Mass Index 28.3 GENERAL APPEARANCE: in no acute distress, pleasant. NECK: no carotid bruit, no jugular venous distention. SKIN: no suspicious lesions, warm and dry. HEART: no murmurs, regular rate and rhythm. Mechanical 2nd heart sound. LUNGS: clear to auscultation bilaterally. ABDOMEN: soft, nontender. EXTREMITIES: no edema. PERIPHERAL PULSES: equal. Objective Labs and Meds 08/12/23 07:57 08/11/23 09:32 Lab results: Laboratory Results - last 24 hr 08/14/23 08/14/23 08/14/23 11:09 16:32 21:13 PT INR POC Glucose 264 H 174 H 201 H Valproic Acid 08/15/23 08/15/23 07:24 09:18 PT 39.8 H INR 3.3 H POC Glucose 228 H Valproic Acid 34.2 L Progress Note: A&P Assessment and plan (1) NSVT (nonsustained ventricular tachycardia): Status: Acute (2) Aspiration pneumonia: Status: Acute (3) H/O mechanical aortic valve replacement: Status: Acute Plan [age] year gentleman with aspiration pneumonia, history of mechanical aortic valve replacement and nonsustained VT on telemetry. Tele reviewed and he does not have any significant even currently. Will review echocardiography today. Recommend starting him on low-dose [id number] succinate 25 mg daily. On Coumadin for anticoagulation been INR target of 2-3. If no bleeding concerns then aspirin 81 mg daily should be continued. Thank you for allowing me to participate in the care of your patient. Please feel free to contact me if you have any questions. Time Spent With Patient Time: Total time managing care of this patient today ____ minutes. Progress Note: Quality Stroke Does the patient have a stroke diagnosis?: No Procedures Date of Service Date of Service: 08/15/23
--- NOTE | 2023-08-15 11:58 | HO.PM.IMPN ---
Subjective Subjective Date of Service: 08/15/23 Interval History: disorganized speech Review of Systems Review of Systems: Yes Unobtainable due to mental status Physical Exam Vital Signs: Vital Signs: Last Vital Signs Temp 97.8 F 08/15/23 07:35 Pulse 96 08/15/23 07:35 Resp 20 08/15/23 07:35 BP 106/66 08/15/23 07:35 Pulse Ox 93 08/15/23 07:35 O2 Del Method Room Air 08/15/23 07:35 O2 Flow Rate 2 08/13/23 07:21 BMI result Body Mass Index 28.3 Gen: in no acute distress HEENT: sclera anicteric, moist mucus membranes Neck: supple Lungs: clear to auscultation bilaterally Heart: regular rate and rhythm, no murmurs Abd: soft, non-tender, somewhat distended Ext: no edema Skin: warm/well-perfused Neuro: alert, unable to assess orientation Psych: rambling/disorganized speech, impaired insight Objective Data Active Medications Acetaminophen (Acetaminophen 325 Mg Tablet) 650 mg PO Q6H PRN PRN Reason: Pain, Mild (Pain Scale 1-3) Last Admin: 08/14/23 08:14 Dose: 650 mg Documented By: BENJY Amoxicillin/Clavulanate Potassium (Amoxicillin/Potassium Clav 875 Mg Tablet) 875 mg PO Q12H [facility] Stop: 08/16/23 22:46 Last Admin: 08/15/23 09:35 Dose: 875 mg Documented By: VILMA Aspirin (Aspirin 81 Mg Tab.Chew) 81 mg PO DAILY [facility] Last Admin: 08/15/23 08:08 Dose: 81 mg Documented By: VILMA Atorvastatin Calcium (Atorvastatin Calcium 40 Mg Tablet) 40 mg PO DAILY [facility] Last Admin: 08/10/23 08:23 Dose: 40 mg Documented By: RITO Benzocaine (Throat Lozenge, Medicated Lozenge) 1 lozenge MUCOUS MEM Q2H PRN PRN Reason: Sore Throat Last Admin: 08/15/23 09:35 Dose: 1 lozenge Documented By: VILMA Dextrose (Dextrose 50 % 25 Gm/50 Ml Syringe) 25 gm IVPUSH Q15M PRN; Protocol PRN Reason: per Hypoglycemia Standing Ord. Divalproex Sodium (Divalproex Sodium Sprinkles 125 Mg Cap.) 125 mg PO TID [facility] Last Admin: 08/15/23 08:08 Dose: 125 mg Documented By: VILMA Divalproex Sodium (Divalproex Sodium 250 Mg Tablet.) 250 mg PO TID [facility] Last Admin: 08/15/23 08:08 Dose: 250 mg Documented By: VILMA Fenofibrate (Fenofibrate 160 Mg Tablet) 160 mg PO DAILY [facility] Last Admin: 08/15/23 08:07 Dose: 160 mg Documented By: VILMA Gabapentin (Gabapentin 300 Mg Capsule) 600 mg PO TID [facility] Last Admin: 08/15/23 08:07 Dose: 600 mg Documented By: VILMA Glucose (Glucose Gel 15 Gm Gel..Gram.) 15 gm PO Q15M PRN; Protocol PRN Reason: per Hypoglycemia Standing Ord. Insulin Human Lispro (Insulin Lispro 100 Unit/Ml 3 Ml Vial) 0 unit SUBCUT QIDACHS [facility]; Protocol Last Admin: 08/15/23 08:07 Dose: 4 unit Documented By: VILMA Levetiracetam (Levetiracetam 500 Mg Tablet) 500 mg PO BID [facility] Last Admin: 08/15/23 08:07 Dose: 500 mg Documented By: VILMA Melatonin (Melatonin 3 Mg Tablet) 6 mg PO BEDTIME [facility] Last Admin: 08/14/23 22:39 Dose: 6 mg Documented By: ARVIND Neomycin/Polymyxin/Bacitracin (Neomy/Polymyx/Bacit/Ointment 14 Gm Tube) 1 gm TOPICAL TID [facility]; Protocol Last Admin: 08/15/23 08:18 Dose: 1 gm Documented By: VILMA Olanzapine (Olanzapine 10 Mg Tablet) 20 mg PO BEDTIME [facility] Last Admin: 08/14/23 22:11 Dose: 20 mg Documented By: ARVIND Ondansetron HCl (Ondansetron Hcl 4 Mg/2 Ml Vial) 4 mg IVPUSH Q8H PRN PRN Reason: Nausea and Vomiting Polyethylene Glycol (Polyethylene Glycol 3350 17 Gm Powd.Pack) 17 gm PO BID [facility] Last Admin: 08/15/23 08:07 Dose: 17 gm Documented By: VILMA Senna/Docusate Sodium (Sennosides/Docusate Sodium Tablet) 2 tab PO BID [facility] Last Admin: 08/15/23 08:08 Dose: 2 tab Documented By: VILMA Sodium Chloride (0.9 % Sodium Chloride Flush 3 Ml Syringe) 3 ml IVFLUSH QSHIFT [facility] Last Admin: 08/15/23 08:05 Dose: 3 ml Documented By: VILMA Trazodone HCl (Trazodone Hcl 100 Mg Tablet) 100 mg PO BEDTIME [facility] Last Admin: 08/14/23 22:16 Dose: 100 mg Documented By: ARVIND Warfarin Sodium (Warfarin Sodium 4 Mg Tablet) 4 mg PO DAILY@1800 [facility] Last Admin: 08/14/23 17:30 Dose: 4 mg Documented By: RACHELYM Labs 08/12/23 07:57 08/11/23 09:32 Labs: Laboratory Results - last 24 hr 08/14/23 08/14/23 08/15/23 16:32 21:13 07:24 PT INR POC Glucose 174 H 201 H 228 H Valproic Acid 08/15/23 09:18 PT 39.8 H INR 3.3 H POC Glucose Valproic Acid 34.2 L Assessment and Plan (1) Aspiration pneumonia: Status: Acute (2) Encephalopathy: Status: Acute (3) Fever: Status: Acute (4) Schizoaffective disorder: Status: Acute Plan d6 62yo M with DM2, schizoaffective disorder, seizure disorder, mild cognitive impairment, mild intellectual disability, HLD, HTN, GERD, hx AoVR with mechanical valve on warfarin presented to ED 08/08/23 after falling out of bed, reporting he passed out possibly not taking medication as his sister is out of state 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 Cardiology consulted. TTE pending. start metoprolol succinate 25 mg daily. rhabdomyolysis - NS d/c'ed once CPK below 1000 agitated delirium - seen by Psychiatry, felt due to noncompliance with medications- resumed olanzapine + valproate but stopped mirtazapine and halved trazodonse dose due to excess sedation - Neurology recommended dose reductions of trazodone + gabapentin, which was done lactic acidosis - not septic- due to seizure? normalized after IV fluids seizure disorder - could have had a seizure given noncompliance, fell out of bed and passed out on day of arrival, valproate level subtherapeutic - resumed levetiracetam + valproate, Neurology consulted, EEG 08/12/23 unremarkable mechanical aortic valve replacement, subtherapeutic INR - INR now therapeutic after extra doses of warfarin and enoxaparin bridge - continue aspirin as well DM2 - correction-dose lispro, hold OHGs HLD - continue statin, fibrate DM neuropathy - continue gabapentin but dose reduced due to sedation VTE ppx - warfarin dispo - STR In my clinical judgment, the patient requires continued inpatient hospitalization for the following reasons: cardiac workup, placement Total time managing care of this patient today: 35 minutes. Quality Stroke Does the patient have a stroke diagnosis?: No VTE Prior VTE?: No VTE Risk Level:: Medical - moderate - high VTE Device Contraindication: Treatment Not Indicated VTE Drug Contraindication: N/A - Med Ordered
[2023-08-15 12:00] VITALS: BP 142/86; PULSE 99; RESP 20; TEMP 36.5; O2SAT 94
[2023-08-15] MEDS: Metoprolol Succinate ER 25 MG TAB.ER.24H PO (12:09)
[2023-08-15 12:10] LABS: Glucose, Whole Blood 312 mg/dL (60-115)
--- NOTE | 2023-08-15 12:42 | MHC.CM.PN ---
Patient has been medically cleared for dc to SNF/STR today. Patient will dc to [facility] today at 3 PM via [facility]. CM spoke with Patient's Sister/Mary Lou @ [phone] and addressed IMM with her (original to be mailed certified letter to Mary Lou and a copy has been placed on the chart).
[2023-08-15 12:54] LABS: MANUAL DIFF FLAG NO
--- NOTE | 2023-08-15 13:06 | P.DS_ITS ---
DS: Providers Provider Date of Service: 08/15/23 Date of admission: 08/10/23 22:42 Date of discharge: 08/15/23 Primary care physician: Sotero Son MD Consults: 08/09/23 12:50 Consult to Care Team Stat Comment: Reason for consultation: disorganized, rapid speech 08/09/23 18:51 Consult to Psychiatry Stat Consulting Provider: Psych Covering Reason for consultation: med eval, decompensation 08/10/23 22:47 Consult to Neurology Routine Consulting Provider: [facility] Reason for consultation: ?seizure 08/12/23 08:16 Consult to Psychiatry Routine Consulting Provider: Psych Covering Reason for consultation: See Neuro recommendations- decrease trazodone + gabapentin? 08/13/23 11:39 Consult to Cardiology Routine Consulting Provider: [facility] Reason for consultation: ?SVT at 8:15 DS: Diagnosis Discharge Diagnosis (1) Aspiration pneumonia: Status: Acute (2) Encephalopathy: Status: Acute (3) Schizoaffective disorder: Status: Acute (4) Acute respiratory failure with hypoxia: Status: Acute (5) NSVT (nonsustained ventricular tachycardia): Status: Acute (6) H/O mechanical aortic valve replacement: Status: Acute (7) Rhabdomyolysis: Status: Acute (8) Lactic acidosis: Status: Acute (9) Seizure disorder: Status: Acute DS: Summary Hospital Course Hospital Course: from admission H+P by hospitalist HARLAN Velez, 08/10/23: 62-year-old male with history of [id number] type 2 diabetes, schizoaffective disorder, unspecified seizure disorder, mild cognitive impairment, mild intellectual disabilities, hyperlipidemia, hypertension, GERD, s/p AVR with mechanical valve anticoagulated with Coumadin presented to the ED 2 days ago after falling out of bed, reporting to ED staff that he passed out . There was strong suspicion that patient was not taking his medication as his sister is out of state and his PROFESSOR OF PATHOLOGY is sick with COVID-19. He had been placed in observation awaiting placement to [facility]. Initial workup in the ED included head CT which was negative for any acute intracranial abnormality but did show cerebral volume loss and mild bilateral periventricular and central white matter diminished attenuation . Cervical spine CT negative for any acute fracture, subluxation, dislocation. Lumbar spine CT negative for any acute fracture malalignment. Chest x-ray showed linear left lung base opacity possibly atelectasis versus minimal pleural fluid with atelectasis. However earlier today developed acute agitation, was swearing and being aggressive. Required p.r.n. Zyprexa. He was also noted to be tachycardic and hypertensive. He was also febrile to 100.6 rectally. Per ED provider, patient was observed to briefly choke on his dinner last night. He was evaluated by Psychiatry due to the acute agitation which was felt to be secondary to noncom pliance with medications. Recommendation was to resume all home medications and use 5 mg Zyprexa p.r.n.. However given fever, tachycardia, further workup was obtained and patient was recommended for admission. He has a leukocytosis of 11.7. Stable normocytic anemia. INR of 1.1, goal 2.5-3.5, likely secondary to noncompliance with Coumadin. Depakote levels also noted to be subtherapeutic at 15.7 again likely secondary to noncompliance. Renal function and electrolyte levels are normal. Glucose 170. Initial lactic acid 3.0. Ammonia level 33. Total CK 3377. Initial troponin 20, repeat 21.5. He is negative for influenza, RSV, COVID-19. Chest x-ray shows questionable small bilateral pleural effusions, on my review x-rays consistent with imaging from yesterday. UA is pending. While in observation, patient has ripped been restarted on all home medications. He has also been given 2 L IV NS, 1 g ceftriaxone. Patient is unable to provide meaningful history at the time of examination. History obtained from ED provider and ED provider note. Mr Smith is a 62yo M with DM2, schizoaffective disorder, seizure disorder, mild cognitive impairment, mild intellectual disability, HLD, HTN, GERD, and hx AoVR with mechanical valve on warfarin and aspirin. He presented to the [facility] ED 08/08/23 after falling out of bed, reporting that he passed out but he is a poor historian. It is quite possible that he was not taking medications, as his sister is out of state and his PROFESSOR OF PATHOLOGY is out sick with Covid-19. He was awaiting STR placement in ED, but then developed acute agitation and fever to 100.6 after choking on dinner the prior night. He was found to have rhabdomyolysis and aspiration pneumonia with hypoxia and was admitted to the hospitalist service. Hospital course by problem: acute hypoxic respiratory failure due to aspiration pneumonia - Gradually weaned off oxygen and treated with ampicillin/sulbactam 08/10-08/13 then amoxicillin/clavulanate 08/14-08/15. Discharged on 2 more days of amoxicillin-clavulanate 875-125 mg twice daily. - Blood cultures negative. - [employer] consulted and recommended NDD3 solids and thin liquids. NSVT - 1 brief episode in AM 08/13, has not recurred - Cardiology consulted. TTE 08/15/23 showed: - Normal left ventricular cavity size. There is moderately increased left ventricular wall thickness. The left ventricular systolic function is low normal. The visually estimated ejection fraction is between 50-55%. - E/E prime ratio is between 8 and 15 consistent with indeterminate filling pressures. - There is no aortic valve stenosis. There is no aortic valve regurgitation. Mechanical aortic valve is not well visualized. Started metoprolol succinate 25 mg daily. Should follow up with [facility] Cardiology in 2 weeks. rhabdomyolysis - Treated with IV NS; discontined once CPK <1000 (had peaked at 3370). No renal injury. schizoaffective disorder - Initially seen by Psychiatry; agitation felt due to noncompliance with medications. Resumed home medications but then became excessively sedated. Mirtazpine discontinued, trazodone dose decreased, and gabapentin dose decreased with improvement in mental status. lactic acidosis - Not septic. Likely due to metformin, which was discontinued. Possibly also due to seizure. seizure disorder - Could have had a seizure given noncompliance (fell out of bed and passed out on day of arrival). Valproate level subtherapeutic on admission. Resumed levetiracetam and valproate. Recheck valproate level on 08/16/23. EEG 08/12/23 unremarkable. mechanical aortic valve replacement, subtherapeutic INR - INR initialy only 1.1 due to medication noncompliance. Given extra doses and bridged with therapeutic enoxaparin. INR 3.3 on discharge; goal 2-3. Recheck INR on 08/16/23. Also continue aspirin 81 mg daily. He was discharged to [facility] for short-term rehabilitation, a nticipate length of stay less than 30 days. Time Attestation Total time managing care of this patient today: 35 mintues. Discharge coordination time: Greater than 30 minutes Quality: Safe Use of Opioids Does Pt have an Active Cancer Diagnosis on the Problem List?: No Quality: Stroke Does the patient have a stroke diagnosis?: No Physical Exam Vital Signs: Vital Signs: Last Vital Signs Temp 97.7 F 08/15/23 12:00 Pulse 99 08/15/23 12:00 Resp 20 08/15/23 12:00 BP 142/86 H 08/15/23 12:00 Pulse Ox 94 08/15/23 12:00 O2 Del Method Room Air 08/15/23 12:00 O2 Flow Rate 2 08/13/23 07:21 BMI result Body Mass Index 28.3 Gen: in no acute distress HEENT: sclera anicteric, moist mucus membranes Neck: supple Lungs: clear to auscultation bilaterally Heart: regular rate and rhythm, no murmurs, mechanical S2 Abd: soft, non-tender, somewhat distended Ext: no edema Skin: warm/well-perfused Neuro: alert, unable to assess orientation Psych: rambling/disorganized speech, impaired insight DS: Data Data Completed and Pending Completed studies during hospitalization [Text1]: Laboratory Results WBC 5.5 X10*3/uL (4.8-10.8) 08/12/23 07:57 RBC 4.28 X10*6/uL (4.60-5.80) L 08/12/23 07:57 Hgb 11.0 g/dl (14.0-18.0) L 08/12/23 07:57 Hct 36.7 % (42.0-52.0) L 08/12/23 07:57 MCV 85.7 fL (80.0-98.0) 08/12/23 07:57 MCH 25.7 pg (27.0-33.0) L 08/12/23 07:57 MCHC 30.0 g/dl (31.0-36.0) L 08/12/23 07:57 RDW 17.1 % (11.0-16.0) H 08/12/23 07:57 Plt Count 228 X10*3/uL (160-400) 08/12/23 07:57 MPV 10.6 fL (9.4-12.4) 08/12/23 07:57 Immature Gran % (Auto) 0.3 % (0.0-0.4) 08/11/23 09:32 Neut % (Auto) 71.3 % (45-73) 08/11/23 09:32 Lymph % (Auto) 18.6 % (20-40) L 08/11/23 09:32 [place] % (Auto) 8.1 % (2-11) 08/11/23 09:32 Eos % (Auto) 1.3 % (0-4) 08/11/23 09:32 Baso % (Auto) 0.4 % (0-2) 08/11/23 09:32 Lymph # (Auto) 1.3 X10*3/uL (1.2-4.9) 08/11/23 09:32 [place] # (Auto) 0.6 X10*3/uL (0.1-1.2) 08/11/23 09:32 Eos # (Auto) 0.1 X10*3/uL (0.0-0.4) 08/11/23 09:32 Baso # (Auto) 0.0 X10*3/uL (0.0-0.2) 08/11/23 09:32 Abs Immat Gran (auto) 0.02 X10*3/uL (0.00-0.03) 08/11/23 09:32 Absolute Neuts (auto) 4.9 x10*3/uL (2.0-8.3) 08/11/23 09:32 Absolute Nucleated RBC 0.000 X10*3/uL (0.0-0.012) 08/12/23 07:57 Nucleated RBC % (auto) 0.0 /100WBC (0.0-0.2) 08/12/23 07:57 Hold Purple Top SEE NOTE 08/14/23 06:22 PT 39.8 SEC (11.1-13.3) H 08/15/23 09:18 INR 3.3 (0.9-1.1) H 08/15/23 09:18 Sodium 144 mmol/L (135-145) 08/11/23 09:32 Potassium 4.0 mmol/L (3.3-5.1) 08/11/23 09:32 Chloride 108 mmol/L (96-108) 08/11/23 09:32 Carbon Dioxide 26 mmol/L (22-29) 08/11/23 09:32 Anion Gap 14 (12-20) 08/11/23 09:32 BUN 13 mg/dL (9-16) 08/11/23 09:32 Creatinine 0.69 mg/dL (0.5-1.4) 08/11/23 09:32 Estim Creat Clear Calc 128.7 08/11/23 09:32 Estimated GFR > 60 08/11/23 09:32 POC Glucose 312 mg/dL (60-115) H 08/15/23 11:28 Random Glucose 210 mg/dL (60-115) H 08/11/23 09:32 Estimat Average Glucose 140 mg/dL 08/11/23 09:32 Hemoglobin A1c % 6.5 % (<6.0) H 08/11/23 09:32 Lactic Acid 3.0 mmol/L (0.5-2.0) H* 08/10/23 20:09 Lactic Acid F/U @ 2Hr 1.0 mmol/L (0.5-2.0) 08/11/23 00:43 Calcium 8.3 mg/dL (8.4-10.2) L D 08/11/23 09:32 Magnesium 1.8 mg/dL (1.6-2.6) 08/09/23 02:41 Total Bilirubin 0.5 mg/dL (0.0-1.0) 08/09/23 02:41 AST 28 U/L (5-37) 08/09/23 02:41 ALT 21 U/L (0-40) 08/09/23 02:41 Alkaline Phosphatase 47 U/L (39-117) 08/09/23 02:41 Ammonia 33 umol/L (13-55) 08/10/23 13:17 Total Creatine Kinase 779 U/L (38-174) H 08/12/23 07:57 Troponin I High Sens 21.5 ng/L (<3.5-35.0) 08/10/23 20:09 Total Protein 7.6 g/dL (6.5-8.0) 08/09/23 02:41 Albumin 4.7 g/dL (3.5-5.0) 08/09/23 02:41 Urine Color Yellow 08/11/23 08:59 Urine Appearance Clear 08/11/23 08:59 Urine pH 6.0 (5.0-9.0) 08/11/23 08:59 Ur Specific [place] 1.020 (1.005-1.025) 08/11/23 08:59 Urine Protein Negative mg/dL (Neg-Trace) 08/11/23 08:59 Urine Glucose (UA) 250 mg/dL (Negative) H 08/11/23 08:59 Urine Ketones Trace mg/dL (Negative) 08/11/23 08:59 Urine Blood Negative (Negative) 08/11/23 08:59 Urine Nitrite Negative (Negative) 08/11/23 08:59 Ur Leukocyte Esterase Negative (Negative) 08/11/23 08:59 Urine RBC 0-2 /HPF (0-2) 08/09/23 02:41 Urine WBC 0-5 /HPF (0-5) 08/09/23 02:41 Ur Squamous Epith Cells 0-2 /HPF (0-2) 08/09/23 02:41 Urine Bacteria None Seen (None Seen) 08/09/23 02:41 Hyaline Casts 0-2 /LPF (0-2) 08/09/23 02:41 Valproic Acid 34.2 mcg/mL (50.0-100.0) L 08/15/23 09:18 COVID-19 (NAVARRO) Negative (Negative) 08/08/23 23:54 COVID-19 Clin Com See Note 08/08/23 23:54 Influenza Type A (PCR) NEGATIVE (Negative) 08/10/23 21:41 Influenza Type B (PCR) NEGATIVE (Negative) 08/10/23 21:41 RSV RNA Qual (PCR) NEGATIVE (Negative) 08/10/23 21:41 SARS-CoV-2 RNA (RT-PCR) NEGATIVE (Negative) 08/10/23 21:[address] 08/09/23 00:20 IMPRESSION: Cerebral volume loss and mild bilateral periventricular and central white matter diminished attenuation which is nonspecific but likely to represent microvascular disease. No acute intracranial abnormality. Head CT 08/09/23 00:20 IMPRESSION: Cerebral volume loss and mild bilateral periventricular and central white matter diminished attenuation which is nonspecific but likely to represent microvascular disease. No acute intracranial abnormality. Lumbar Spine CT 08/09/23 00:20 IMPRESSION: Postoperative and degenerative change of the lumbar spine. No evidence for fracture or malalignment Chest X-Ray 08/10/23 19:45 IMPRESSION: Question small bilateral pleural effusions. Discharge Plan Discharge Anticipated Discharge Date/Time: 08/15/23 12:53 Patient Disposition: er SNF Discharge Diagnosis: acute hypoxic resp failure due to aspiration pneumonia NSVT rhabdomyolysis lactic acidosis seizure disorder mechanical aortic valve replacement, subtherapeutic INR Referrals: [facility] [Other] - 1 Week [facility] [Outside] ([address] [place] [address] ) Angel Hernandez MD [Physician] - 2 Weeks Physician,Unknown J [Primary Care Provider] - 1 Week Sotero Son MD [Physician] - 1 Week Discharge Medications: New trazodone 100 mg Tablet 100 mg PO BEDTIME Qty: 30 0RF gabapentin 300 mg Capsule 600 mg PO TID Qty: 180 0RF metoprolol succinate 25 mg Tablet Extended Release 24 Hr 25 mg PO DAILY Qty: 30 0RF Protocol: Hold for SBP/HR < HOLD for SBP < : 90 HOLD for HR < : 60 amoxicillin-pot clavulanate 875-125 mg Tablet 1 tab PO Q12H Qty: 4 0RF Continued atorvastatin 40 mg tablet 40 mg PO DAILY levetiracetam 500 mg tablet 500 mg PO BID melatonin 3 mg tablet 6 mg PO BEDTIME warfarin 4 mg tablet 4 mg PO DAILY divalproex 125 mg tablet,delayed release (DR/EC) 125 mg PO TID Rx Instructions: TOTAL DOSE 375 MG TID aspirin 81 mg tablet,chewable 1 tab PO DAILY nystatin [Nystop] 100,000 unit/gram powder 1 appl topical BID olanzapine 20 mg tablet 20 mg PO BEDTIME glipizide 5 mg tablet 5 mg PO DAILY@0730 fenofibrate nanocrystallized 145 mg tablet 145 mg PO DAILY divalproex 250 mg tablet,delayed release (DR/EC) 250 mg PO TID Rx Instructions: TOTAL DOSE 375 MG TID Discontinued trazodone 100 mg tablet 200 mg PO BEDTIME metformin 1,000 mg tablet 1,000 mg PO BID gabapentin 300 mg capsule 900 mg PO TID mirtazapine 7.5 mg tablet 7.5 mg PO BEDTIME Discharge Orders: Discharge Order (Routine); Ordered 08/15/23 Ordered By: Lexi Meza Diet: NDD3 solids, thin liquids Activity on Discharge: As tolerated Stand Alone Forms: Patient Portal Discharge page Other Ambulatory Orders: Prothrombin Time INR (Routine) Timeframe: 1 Day Facility: [facility] - Location: Laboratory Ordered By: Lexi Meza Valproate (Routine) Timeframe: 1 Day Facility: [facility] - Location: Laboratory Ordered By: Lexi Meza Care Plan Goals: recovery from pneumonia avoid excess sedation Health Concerns: acute hypoxic resp failure due to aspiration pneumonia NSVT rhabdomyolysis lactic acidosis seizure disorder mechanical aortic valve replacement, subtherapeutic INR Plan of Treatment: amoxicillin-clavaulanate 875-125 mg twice daily for 2 days start metoprolol succinate 25 mg daily and follow up with [facility] Cardiology in 2 weeks stop metformin decrease gabapentin to 600 mg 3x a day; decrease trazodone to 100 mg at bedtime; stop mirtazapine INR 3.3 on 08/15/23; recheck on 08/16/23 and adjust warfarin dose to achieve INR of 2-3 anticipated length of stay at [facility] less than 30 days Please follow up with your primary care doctor within 1 week of discharge from SNF. Return to the hospital if you experience recurrent or worsening symptoms. Assessment: See Discharge Summary.
[2023-08-15 13:48] LABS: Basophils Percent Auto 0.5 % (0-2); Eosinophils Absolute Auto 0.2 X10*3/uL (0.0-0.4); Eosinophils Percent Auto 3.1 % (0-4); Hematocrit 39.9 % (42.0-52.0); Hemoglobin 11.9 g/dl (14.0-18.0); Imm Gran Abs Auto 0.02 X10*3/uL (0.00-0.03); Imm Gran Pct Auto 0.4 % (0.0-0.4); Lymphocytes Absolute Auto 1.4 X10*3/uL (1.2-4.9); Lymphocytes Percent Auto 25.3 % (20-40); Mean Corpuscular HGB Conc 29.8 g/dl (31.0-36.0); Mean Corpuscular Hemoglobin 25.6 pg (27.0-33.0); Mean Platelet Volume 11.5 fL (9.4-12.4); Monocytes Absolute Auto 0.4 X10*3/uL (0.1-1.2); Monocytes Percent Auto 7.9 % (2-11); Neutrophils Absolute Auto 3.5 x10*3/uL (2.0-8.3); Neutrophils Percent Auto 62.8 % (45-73); Platelet Count 292 X10*3/uL (160-400); Red Blood Count 4.64 X10*6/uL (4.60-5.80); Red Cell Distribution Width 17.2 % (11.0-16.0); White Blood Count 5.6 X10*3/uL (4.8-10.8)
[2023-08-15 14:17] LABS: Alanine Aminotransferase 30 U/L (0-40); Alkaline Phosphatase 43 U/L (39-117); Amylase 27 U/L (28-100); Aspartate Amino Transferase 23 U/L (5-37); Bilirubin Direct 0.1 mg/dL (0.0-0.5); Bilirubin Total 0.3 mg/dL (0.0-1.0); Creatinine Clr Calc Pharmacy 115.3; Estimated Glomerular Filt Rate > 60
[2023-08-16 08:16] LABS: HBc Num1 0.09 S/CO (0.00-0.79); HBsAGNum1 0.33 S/CO (0.00-0.99); HIV AB/AG Nonreactive (Nonreactive); HIV Num 1 0.04 S/CO (0.00-0.99); Hepatitis B Core Antibody Nonreactive (Nonreactive); Hepatitis B Surface Antigen Negative (Negative); ~HepC Num1 0.18 S/CO (0.00-0.79); ~Hepatitis C Antibody Nonreactive (Nonreactive)
--- NOTE | 2023-08-29 12:07 | P.CDIM_ITS ---
PROVIDER RESPONSE TEXT: To clarify, the appropriate diagnosis supported by the clinical indicators: Acute lactic acidosis QUERY TEXT: PHYSICIAN'S DOCUMENTATION REQUEST Date of Query: 08/15/2023 07:48 AM EST Patient Name: Russel Smith Admit Date: 08/11/2023 Dear Lexi Meza, A review of the medical record indicates additional documentation may be needed. Please review below and update the documentation accordingly. Clinical Indicators: Progress notes - Plan: lactic acidosis, not septic - due to seizure? normalized after IV fluids. LA 3.0 Clarify which of the following accurately represents the acuity of the lactic acidosis: Acute lactic acidosis Other please specify Other (explain) Clinically unable to determine (explain) Thank you, Mary Reyes, CCS, CDIS Use of terms such as suspected, likely, concern for, or probable (associated with a specific diagnosi s that is being evaluated, monitored, or treated as if it exists) are acceptable and can be coded in the inpatient se tting, when documented at the time of discharge. Please use your independent medical judgment in providing your response. THIS QUERY IS PART OF THE PERMANENT MEDICAL RECORD
== END 2023-08-15 15:22 | disposition skilled nursing facility (03) | DRG 177 ==
LOC: HO.ED 08-10 19:42 → HO.EDOVER 08-10 22:55 → HO.IMC 08-11 08:34
PROVIDERS: Emergency Medicine; Internal Medicine; Nurse Practitioner Family; Physician Assistant; Psychiatry & Neurology Psychiatry; Registered Nurse Emergency; Admitting Provider Physician Assistant; Emergency Provider Emergency Medicine Emergency Medical Services; Visit Provider Family Medicine
DX: J69.0 Pneumonitis due to inhalation of food and vomit (principal); G93.41 Metabolic encephalopathy; J96.01 Acute respiratory failure with hypoxia; J91.8 Pleural effusion in other conditions classified elsewhere; M62.82 Rhabdomyolysis; F05 Delirium due to known physiological condition; I47.20 Ventricular tachycardia, unspecified; E87.21 Acute metabolic acidosis; F25.9 Schizoaffective disorder, unspecified; R79.1 Abnormal coagulation profile; E11.42 Type 2 diabetes mellitus with diabetic polyneuropathy; E78.5 Hyperlipidemia, unspecified; G40.909 Epilepsy, unspecified, not intractable, without status epilepticus; I10 Essential (primary) hypertension; D64.9 Anemia, unspecified; F70 Mild intellectual disabilities; Z20.822 Contact with and (suspected) exposure to COVID-19; Z95.2 Presence of prosthetic heart valve; Z91.148 Patient's other noncompliance with medication regimen for other reason; Z79.01 Long term (current) use of anticoagulants; Z79.82 Long term (current) use of aspirin; Z79.84 Long term (current) use of oral hypoglycemic drugs; Z79.899 Other long term (current) drug therapy
CPT/HCPCS: 0241U; 36415; 70450; 71045; 71046; 72125; 72131; 80048; 80053; 80076; 80164; 81001; 81003; 82140; 82150; 82550; 82565; 82947; 83036; 83605; 83735; 84484; 85025; 85027; 85610; 86704; 86803; 87040; 87340; 87389; 87635; 90715; 92610; 93005; 93306; 95816; 97162; 99285; J0295; J0696; J1650; J1953; J2060; Q9957; S9485

== ENCOUNTER → 2023-08-09 04:28 | Outpatient (BNV) | payer OTHER, SELFPAY | PROVIDERS: Emergency Provider Emergency Medicine Emergency Medical Services; Visit Provider Psychiatry & Neurology Psychiatry | DX: F25.9 Schizoaffective disorder, unspecified (principal) | CPT/HCPCS: 99222; 99232 ==

== ENCOUNTER → 2023-08-10 17:21 | Outpatient (BNV) | payer OTHER, SELFPAY | PROVIDERS: Admitting Provider Physician Assistant; Emergency Provider Emergency Medicine Emergency Medical Services; Visit Provider Internal Medicine | DX: R00.0 Tachycardia, unspecified (principal) | CPT/HCPCS: 93010 ==

== ENCOUNTER 2023-08-10 22:42 | Outpatient (BNV) | payer OTHER, SELFPAY | END 2023-08-15 07:00 | PROVIDERS: Admitting Provider Physician Assistant; Emergency Provider Emergency Medicine Emergency Medical Services; Visit Provider Internal Medicine Cardiovascular Disease | DX: R00.0 Tachycardia, unspecified (principal); R94.31 Abnormal electrocardiogram [ECG] [EKG] | CPT/HCPCS: 93306 ==

== ENCOUNTER → 2023-08-10 22:42 | Outpatient (BNV) | payer OTHER, SELFPAY | PROVIDERS: Admitting Provider Physician Assistant; Emergency Provider Emergency Medicine Emergency Medical Services; Visit Provider Internal Medicine | DX: I47.29 Other ventricular tachycardia (principal); J69.0 Pneumonitis due to inhalation of food and vomit; Z95.2 Presence of prosthetic heart valve | CPT/HCPCS: 99223; 99232 ==

== ENCOUNTER → 2023-08-10 22:42 | Outpatient (BNV) | payer OTHER, SELFPAY | PROVIDERS: Admitting Provider Physician Assistant; Emergency Provider Emergency Medicine Emergency Medical Services; Visit Provider Family Medicine | DX: J69.0 Pneumonitis due to inhalation of food and vomit (principal); G93.40 Encephalopathy, unspecified; R50.9 Fever, unspecified; F25.9 Schizoaffective disorder, unspecified | CPT/HCPCS: 99223; 99232; 99233; 99239 ==

== ENCOUNTER 2023-12-01 17:09 | Outpatient (BNV) | payer OTHER, SELFPAY | END 2023-12-14 17:06 | PROVIDERS: Admitting Provider Psychiatry & Neurology Psychiatry; PCP Internal Medicine; Visit Provider Internal Medicine Cardiovascular Disease | DX: R07.9 Chest pain, unspecified (principal) | CPT/HCPCS: 93010 ==

== ENCOUNTER 2023-12-01 17:09 | Outpatient (BNV) | payer OTHER, SELFPAY | END 2023-12-02 14:06 | PROVIDERS: Admitting Provider Psychiatry & Neurology Psychiatry; PCP Internal Medicine; Visit Provider Internal Medicine Cardiovascular Disease | DX: I45.81 Long QT syndrome (principal) | CPT/HCPCS: 93010 ==

== ENCOUNTER 2023-12-01 17:09 | Inpatient (IN) | payer OTHER, SELFPAY ==
[2023-12-01 17:46] VITALS: BP 139/80; PULSE 95; RESP 18; TEMP 36.8; O2SAT 94
[2023-12-01 17:47] VITALS: BMI 27.6
--- NOTE | 2023-12-01 18:52 | PC.ADMIT ---
Patient admitted at 1725 via stretcher from [facility] with HX of schizoaffective disorder, bipolar disorder, and mild cognitive impairment.Alert and oriented x3. Russel presented to [facility] via ambulance that he called himself due to agitation. Patient presented with disorganized thinking. Speech is unclear due to mumbling. Unable to respond appropriately to most questions. Patient resides alone in the community with [facility] supports, Home Nursing services. Patient's sister is HCP/POA. PMH includes type 2 DM,Obesity, AVR on Coumadin, Chronic back pain s/p lumbar postlaminectomy syndrome. Patient skin check done, VS taken, Height and Weight obtained. Patient utilizing Walker for ambulation. Reported to have hearing aids however patient reports they are broken. Not currently wearing them. Patient oriented to unit. Observed in dining area having coffee and snack. Patient stated, I need coffee so I can go to the bathroom. Patient did have BM. Patient unable to participate in admission process due to cognitive delay. Will contact sister (HCP/POA) to complete admission. Denies pain. Nurse to nurse report indicated allergies are bee stings, lactose, lamictal and vicodin. PCP to be notified of admission.
[2023-12-01 19:45] VITALS: BP 113/58; PULSE 101; RESP 18; TEMP 36.7; O2SAT 99
[2023-12-01] MEDS: Gabapentin 300 MG CAPSULE PO (20:54)
[2023-12-01] MEDS: OLANZapine 10 MG TABLET 20 MG PO (20:54)
[2023-12-01] MEDS: Mirtazapine 7.5 MG TABLET PO (20:54)
[2023-12-01] MEDS: Divalproex Sodium Sprinkles 125 MG CAP.DR.SPR PO (20:54)
[2023-12-01] MEDS: Melatonin 3 MG TABLET 6 MG PO (20:55)
--- NOTE | 2023-12-02 | ECG_ITS ---
Test Reason : qtc Blood Pressure : / mmHG Vent. Rate : 090 BPM Atrial Rate : 090 BPM P-R Int : 144 ms QRS Dur : 100 ms QT Int : 366 ms P-R-T Axes : 087 082 103 degrees QTc Int : 447 ms Normal sinus rhythm Normal ECG When compared with ECG of 10-AUG-2023 17:40, Non-specific change in ST segment in Inferior leads T wave inversion no longer evident in Inferior leads T wave inversion no longer evident in Lateral leads Referred By: Saurabh Lewis Electronically Signed By:Ld Ramsay
--- NOTE | 2023-12-02 01:26 | PC.NURSE ---
Patient signed JOSE for sister (HCP) Mary Lou, insurance, PCP and pharmacy.
[2023-12-02 06:00] VITALS: BP 149/67; PULSE 94; RESP 18; TEMP 36.6; O2SAT 95
[2023-12-02] MEDS: Omeprazole 20 MG CAPSULE.DR PO (06:06)
[2023-12-02] MEDS: Aspirin 81 MG TAB.CHEW PO (09:30)
[2023-12-02] MEDS: Divalproex Sodium Sprinkles 125 MG CAP.DR.SPR PO ×3 (09:31→21:18)
[2023-12-02] MEDS: glipiZIDE 5 MG TABLET PO (09:31)
[2023-12-02] MEDS: Gabapentin 300 MG CAPSULE PO (09:31)
--- NOTE | 2023-12-02 10:13 | P.HPPS_ITS ---
HPI Date of Service: 12/02/23 Chief Complaint: F25.9, F31.9 Sources of Information: patient interviewed, chart reviewed and crisis/core team assessment reviewed HPI Subjective Notes: Chase Warning and Conditional Voluntary Narrative: The patient is a 63-year-old male, single, with no children, unemployed on disability with a prior diagnosis of schizoaffective disorder bipolar type and developmental disorder, who lives by himself in a rented apartment with [employer] and VNA services. His case managed by [facility] 2. The patient was brought to the emergency room of [facility] due to change of mental status with agitation and disorganized behavior. The patient was initially assessed at the emergency room of the hospital, he was seen by crisis team and chemically restrain with droperidol. While he was in the ED, he was disorganized playing with feces. On interview, on admission the patient was pleasant cooperative with a very loud voice since he is hard of hearing and he does not have he is hearing aids. He currently denies hallucinations or delusions he looks pleasantly confused and easily redirectable. He was a very poor historian unable to provide details at this moment. We will try to contact her sister and gather more collateral information. At this moment the patient is able to contract for safety, we ordered an EKG with no new findings. Past Psychiatric History: schizophrenia intellectual disability h/o inpt LOC collateral Hx from sister, who is HCP Medical Evaluation Reviewed: Yes [facility] Medical History (Updated 12/02/23 @ 15:09 by Saurabh Lewis) Schizoaffective disorder NSVT (nonsustained ventricular tachycardia) Rhabdomyolysis Closed head injury with loss of consciousness of unknown duration Mild intellectual disability Mild cognitive impairment Chronic anemia Asthma Seizure disorder Hypertension Hyperlipidemia Current use of terminal superintendent anticoagulation Type 2 diabetes mellitus Surgical History (Updated 08/23/23 @ 00:03 by Gabby Quintero) H/O mechanical aortic valve replacement Family History: Denies Social History: lives alone, has [employer] 5 hours daily, VNA. sister, who is HCP, is trying to get pt into fpc and has been in touch with [facility] and [facility]. Substance History: Past history of alcohol use and cannabis use, apparently no history of substance abuse in the past. Trauma History: Unable to assess the patient refused to answer Diagnostics Vital Signs (24Hr): Vital Signs - 24 hr 12/01/23 17:46 12/01/23 19:45 Temperature 98.3 F 98.0 F Pulse Rate 95 101 H Respiratory Rate 18 18 Blood Pressure 139/80 113/58 L Pulse Oximetry 94 99 Oxygen Delivery Method Room Air Room Air BMI result Body Mass Index 27.6 Labs 12/02/23 11:04 Meds/Allergies Meds Home Medications Medication Instructions Recorded Confirmed Type aspirin 81 mg chewable tablet 1 tab PO DAILY 08/09/23 12/01/23 History atorvastatin 40 mg tablet 40 mg PO DAILY 08/09/23 12/01/23 History divalproex 125 mg tablet,delayed 375 mg PO TID 08/09/23 12/02/23 History release fenofibrate nanocrystallized 145 145 mg PO DAILY 08/09/23 12/01/23 History mg tablet glipizide 5 mg tablet 5 mg PO DAILY@0730 08/09/23 12/01/23 History melatonin 3 mg tablet 6 mg PO BEDTIME 08/09/23 12/01/23 History nystatin 100,000 unit/gram topical 1 appl topical BID 08/09/23 12/01/23 History powder (Nystop) olanzapine 20 mg tablet 20 mg PO BEDTIME 08/09/23 12/01/23 History warfarin 4 mg tablet 4 mg PO DAILY 08/09/23 12/01/23 History gabapentin 300 mg capsule 900 mg PO TID 12/01/23 12/01/23 History mirtazapine 7.5 mg tablet 7.5 mg PO BEDTIME 12/01/23 12/01/23 History olanzapine 5 mg tablet 5 mg PO TID PRN Anxiety 12/01/23 12/01/23 History pantoprazole 20 mg tablet,delayed 20 mg PO DAILY 12/01/23 12/01/23 History release albuterol sulfate 2.5 mg/3 mL 2.5 mg inhalation Q4H PRN Wheezing 12/02/23 12/02/23 History (0.083 %) solution for nebulization metformin 1,000 mg tablet 1,000 mg PO BID 12/02/23 12/02/23 History trazodone 100 mg tablet 100 mg PO BEDTIME PRN Insomnia 12/02/23 12/01/23 History Allergies Allergies Allergy/AdvReac Type Severity Reaction Status Date / Time acetaminophen [From Vicodin] AdvReac Unknown Verified 12/01/23 19:50 bee pollen [bee stings] AdvReac Unknown Verified 12/01/23 19:50 haloperidol [From Haldol] AdvReac Unknown Verified 12/01/23 19:50 hydrocodone [From Vicodin] AdvReac Unknown Verified 12/01/23 19:50 lactose AdvReac Unknown Verified 12/01/23 19:50 lamotrigine [From Lamictal] AdvReac Unknown Verified 12/01/23 19:50 Mental Status Exam Mental Status Exam Patient Appearance: Appropriate and Unkempt Patient Orientation: Person and Situation Level of Consciousness: Awake and Restless Patient Behavior: Guarded and Passive Mood Description: Withdrawn Affect Description: Blunted Patient Cognition Impaired: Yes Ability to Follow Directions: Good Speech Pattern: Spontaneous Speech and Loud Hallucinations: Auditory Delusions: Paranoid Ideation and Ideas of Reference Thought Process: Distracted, Slowed Thinking and Word Salad Thought Content: positive for [place] and positive for Poverty of Content Judgement: Poor Assessment & Plan Assessment & Plan (1) Seizure disorder: Status: Acute Code(s): G40.909 - Epilepsy, unspecified, not intractable, without status epilepticus (2) Schizoaffective disorder: Status: Acute Code(s): F25.9 - Schizoaffective disorder, unspecified Plan The patient is an elderly male with schizoaffective disorder bipolar type and developmental disorder, living in the community admitted to the emergency room for exacerbation of psychosis with disorganized behavior and agitation that needed IM medication in the emergency room of another hospital. At this moment pleasantly confused easily redirectable. Plan 1. Gather collateral information. 2. We did medication reconciliation and we will continue with his antipsychotics and Depakote for seizure disorder. 3. The patient will be placed on 15 minute checks. 4. We will try to gather collateral information from [facility] she the patient is court ordered to follow treatment. Patient educated on: diagnosis Reason for continued inpatient stay Substantial Risk for: harm to self, harm to others, inability to function, rapid decompensation and med/psych decompensation Statement Statement: I have reviewed the history and physical and performed a pertinent examination on my patient. No changes have occurred unless specified. If the History and Physical was not performed prior to admission, the Hospitalist's service will be consulted for completing the admission physical. Time Spent With Patient Time: Total time managing care of this patient today __45__ minutes.
[2023-12-02 11:38] LABS: Alanine Aminotransferase 12 U/L (0-40); Albumin Level 3.7 g/dL (3.5-5.0); Alkaline Phosphatase 54 U/L (39-117); Anion Gap 11 (12-20); Aspartate Amino Transferase 15 U/L (5-37); Bilirubin Total 0.4 mg/dL (0.0-1.0); Blood Urea Nitrogen 15 mg/dL (9-16); Calcium 8.9 mg/dL (8.4-10.2); Carbon Dioxide 28 mmol/L (22-29); Chloride 101 mmol/L (96-108); Cholesterol 163 mg/dL (<200); Creatinine Clr Calc Pharmacy 103.2; Estimated Glomerular Filt Rate > 60; Glucose Fasting 300 mg/dL (60-99); HDL Cholesterol 27 mg/dL (>40); LDL Cholesterol Calculated 87 mg/dL (<100); Potassium 4.3 mmol/L (3.3-5.1); Sodium 136 mmol/L (135-145); Total Protein 6.3 g/dL (6.5-8.0); Triglycerides 248 mg/dL (<150)
[2023-12-02 11:43] LABS: Estimated Average Glucose 137 mg/dL; Hemoglobin A1c % 6.4 % (<6.0)
[2023-12-02] MEDS: OLANZapine 5 MG TABLET PO (12:04)
[2023-12-02 12:47] LABS: INTERNATIONAL NORM RATIO 1.8 (0.9-1.1); Prothrombin Time 21.7 SEC (11.1-13.3)
[2023-12-02] MEDS: Gabapentin 300 MG CAPSULE 900 MG PO ×2 (15:03→21:18)
--- NOTE | 2023-12-02 17:00 | P.CONHOSP_ITS ---
History of Present Illness Data of Consult Service Date: 12/02/23 Primary Care Provider: Sotero Son MD [facility] Reason for consult: Admission H&P Pt is a 63-year-old male with a PMH significant for?nnd-weswvqj-[id number] type 2 diabetes, schizoaffective disorder, unspecified seizure disorder, mild cognitive impairment, mild intellectual disabilities, hyperlipidemia, hypertension, GERD, s/p AVR with mechanical valve anticoagulated with Coumadin and schizoaffective bipolar type who is admitted to [facility] for altered mental status with increased agitation and disorganized behavior. While at [facility] apparently was chemically restrained with droperidol and was found to be playing with his feces. Medical consult for admission H&P. ?Pt complains of chronic lower back pain and chronic bilateral shoulder pain. Has been ongoing for ?years? but unable to further specify. Pt otherwise has no acute medical complaints. Denies chest pain/pressure, palpiations. No SOB or difficulty breathing. Labs reviewed, significant for POC 300 and INR 1.8. Review of Systems 2 Review of Systems: Chronic lower back pain Chronic bilateral shoulder pain [facility] Medical History Schizoaffective disorder NSVT (nonsustained ventricular tachycardia) Rhabdomyolysis Closed head injury with loss of consciousness of unknown duration Mild intellectual disability Mild cognitive impairment Chronic anemia Asthma Seizure disorder Hypertension Hyperlipidemia Current use of correction anticoagulation Type 2 diabetes mellitus Surgical History H/O mechanical aortic valve replacement Social History Household Members: None Housing: Apartment Do you presently have visiting nurse or other home services: Yes Patient Tobacco Use Status: Tobacco use Unknown Use of substances other than those prescribed or required for medical reasons: Unknown Currently Displaying Signs/Symptoms of Drug Intoxication Withdrawal: No Advance Directives: Yes Advance Directives Information Provided: No Advance Directives on File: Yes Advance Directives Date on File: 08/09/23 Do you have thoughts of harming others: None Do you have a plan to hurt others: No Plan Recently lost weight without trying: Unsure Eating poorly because of decreased appetite: No Meds Allergies Allergy/AdvReac Type Severity Reaction Status Date / Time acetaminophen [From Vicodin] AdvReac Unknown Verified 12/01/23 19:50 bee pollen [bee stings] AdvReac Unknown Verified 12/01/23 19:50 haloperidol [From Haldol] AdvReac Unknown Verified 12/01/23 19:50 hydrocodone [From Vicodin] AdvReac Unknown Verified 12/01/23 19:50 lactose AdvReac Unknown Verified 12/01/23 19:50 lamotrigine [From Lamictal] AdvReac Unknown Verified 12/01/23 19:50 Active Medications: Current Medications Acetaminophen (Acetaminophen 325 Mg Tablet) 650 mg PO Q6H PRN PRN Reason: Headache/Pain Mild Scale (1-3) Al Hydroxide/Mg Hydroxide (Magnesium Hydrox/Alum Hydrox 30 Ml Oral.Susp) 30 ml PO Q6H PRN PRN Reason: Heartburn/Nausea Albuterol Sulfate (Albuterol Sulfate (0.083%) 2.5 Mg/3 Ml Vial.Neb) 2.5 mg INHALE Q4H PRN PRN Reason: Wheezing Aspirin (Aspirin 81 Mg Tab.Chew) 81 mg PO DAILY [facility] Last Admin: 12/02/23 09:30 Dose: 81 mg Atorvastatin Calcium (Atorvastatin Calcium 40 Mg Tablet) 40 mg PO DAILY [facility] Divalproex Sodium (Divalproex Sodium Sprinkles 125 Mg Sampson.) 125 mg PO TID [facility] Last Admin: 12/02/23 15:03 Dose: 125 mg Fenofibrate (Fenofibrate 160 Mg Tablet) 160 mg PO DAILY [facility] Gabapentin (Gabapentin 300 Mg Capsule) 900 mg PO TID [facility] Last Admin: 12/02/23 15:03 Dose: 900 mg Glipizide (Glipizide 5 Mg Tablet) 5 mg PO DAILY@0730 [facility] Last Admin: 12/02/23 09:31 Dose: 5 mg Hydroxyzine HCl (Hydroxyzine Hcl 25 Mg Tablet) 25 mg PO Q6H PRN PRN Reason: Anxiety Magnesium Hydroxide (Milk Of Magnesia 30 Ml Oral.Susp) 30 ml PO DAILY PRN PRN Reason: Constipation Melatonin (Melatonin 3 Mg Tablet) 6 mg PO BEDTIME [facility] Last Admin: 12/01/23 20:55 Dose: 6 mg Metformin HCl (Metformin Hcl 1,000 Mg Tablet) 1,000 mg PO BID [facility] Mirtazapine (Mirtazapine 7.5 Mg Tablet) 7.5 mg PO BEDTIME [facility] Last Admin: 12/01/23 20:54 Dose: 7.5 mg Nystatin (Nystatin Powder 15 Gm Bottle) 1 appl TOPICAL BID [facility]; Protocol Olanzapine (Olanzapine 10 Mg Tablet) 20 mg PO BEDTIME [facility] Last Admin: 12/01/23 20:54 Dose: 20 mg Olanzapine (Olanzapine 5 Mg Tablet) 5 mg PO TID PRN PRN Reason: Anxiety Last Admin: 12/02/23 12:04 Dose: 5 mg Omeprazole (Omeprazole 20 Mg Capsule.Dr) 20 mg PO DAILY@0630 [facility] Last Admin: 12/02/23 06:06 Dose: 20 mg Trazodone HCl (Trazodone Hcl 100 Mg Tablet) 100 mg PO BEDTIME PRN PRN Reason: Insomnia Warfarin Sodium (Warfarin Sodium 4 Mg Tablet) 4 mg PO DAILY@1800 [facility] Home Medications Medication Instructions Recorded Confirmed Last Taken Type aspirin 81 mg chewable tablet 1 tab PO DAILY 08/09/23 12/01/23 Unknown History atorvastatin 40 mg tablet 40 mg PO DAILY 08/09/23 12/01/23 Unknown History divalproex 125 mg tablet,delayed 375 mg PO TID 08/09/23 12/02/23 Unknown History release fenofibrate nanocrystallized 145 145 mg PO DAILY 08/09/23 12/01/23 Unknown History mg tablet glipizide 5 mg tablet 5 mg PO DAILY@0730 08/09/23 12/01/23 Unknown History melatonin 3 mg tablet 6 mg PO BEDTIME 08/09/23 12/01/23 Unknown History nystatin 100,000 unit/gram topical 1 appl topical BID 08/09/23 12/01/23 Unknown History powder (Nystop) olanzapine 20 mg tablet 20 mg PO BEDTIME 08/09/23 12/01/23 Unknown History warfarin 4 mg tablet 4 mg PO DAILY 08/09/23 12/01/23 Unknown History gabapentin 300 mg capsule 900 mg PO TID 12/01/23 12/01/23 Unknown History mirtazapine 7.5 mg tablet 7.5 mg PO BEDTIME 12/01/23 12/01/23 Unknown History olanzapine 5 mg tablet 5 mg PO TID PRN Anxiety 12/01/23 12/01/23 Unknown History pantoprazole 20 mg tablet,delayed 20 mg PO DAILY 12/01/23 12/01/23 Unknown History release albuterol sulfate 2.5 mg/3 mL 2.5 mg inhalation Q4H PRN Wheezing 12/02/23 12/02/23 Unknown History (0.083 %) solution for nebulization metformin 1,000 mg tablet 1,000 mg PO BID 12/02/23 12/02/23 Unknown History trazodone 100 mg tablet 100 mg PO BEDTIME PRN Insomnia 12/02/23 12/01/23 Unknown History Physical Exam 2 Vital Signs and Narrative: Vital Signs: Last Vital Signs Temp 97.9 F 12/02/23 06:00 Pulse 94 12/02/23 06:00 Resp 18 12/02/23 06:00 BP 149/67 H 12/02/23 06:00 Pulse Ox 95 12/02/23 06:00 O2 Del Method Room Air 12/02/23 06:00 BMI result Body Mass Index 27.6 General: Alert and oriented to self and time, not to place or situation. In no acute distress Resp: CTA bilaterally CVS: S1, S2, mechanical click GI: +BS, NT, no distention Skin: Warm, dry Neuro: Cranial nerves II-XII grossly intact bilaterally. Motor grossly intact bilaterally Extremities: No edema Results Labs 12/02/23 11:04 Labs: Laboratory Results - last 24 hr 12/02/23 12/02/23 11:04 12:36 PT 21.7 H D INR 1.8 H Anion Gap 11 L Estim Creat Clear Calc 103.2 Estimated GFR > 60 Fasting Glucose 300 H Estimat Average Glucose 137 Hemoglobin A1c % 6.4 H Calcium 8.9 D Total Bilirubin 0.4 AST 15 ALT 12 Alkaline Phosphatase 54 Total Protein 6.3 L Albumin 3.7 Triglycerides 248 H Cholesterol 163 LDL Cholesterol, Calc 87 HDL Cholesterol 27 L Assessment and Plan (1) Medical clearance for psychiatric admission: Status: Acute Plan Pt is a 63-year-old male with a PMH significant for?[id number]-[id number] type 2 diabetes, schizoaffective disorder, unspecified seizure disorder, mild cognitive impairment, mild intellectual disabilities, hyperlipidemia, hypertension, GERD, s/p AVR with mechanical valve anticoagulated with Coumadin and schizoaffective bipolar type who is admitted to [facility] for altered mental status with increased agitation and disorganized behavior. While at [facility] apparently was chemically restrained with droperidol and was found to be playing with his feces. Medical consult for admission H&P. Mood disorder Plan as per psychiatry Chronic musculoskeletal pain Acetaminophen or Motrin Subtherapeutic INR Patient with INR 1.8 at time of presentation S/P AVR with mechanical valve INR goal of 2.0-3.0 Continue Coumadin, follow INR Wrk-[id number]-[id number] diabetes type 2 Continue glipizide, metformin Encouraged diabetic diet HLD Continue statin, fenofibrate Unspecified seizure disorder Continue Depakote GERD PPI Thank you for allowing us to participate in the care of this patient. Signing off at this time. Please re-consult if any acute complaints or issues arise.
[2023-12-02] MEDS: Warfarin Sodium 4 MG TABLET PO (17:18)
[2023-12-02] MEDS: Acetaminophen 325 MG TABLET 650 MG PO (17:44)
[2023-12-02] MEDS: hydrOXYzine HCL 25 MG TABLET PO (17:45)
[2023-12-02 18:00] VITALS: BP 148/67; PULSE 92; RESP 18; TEMP 36.7; O2SAT 96
[2023-12-02] MEDS: metFORMIN HCl 1,000 MG TABLET 1000 MG PO (21:18)
[2023-12-02] MEDS: Mirtazapine 7.5 MG TABLET PO (21:18)
[2023-12-02] MEDS: Melatonin 3 MG TABLET 6 MG PO (21:18)
[2023-12-02] MEDS: OLANZapine 10 MG TABLET 20 MG PO (21:19)
[2023-12-02 23:05] LABS: Glucose, Whole Blood 260 mg/dL (60-115)
[2023-12-03 06:25] LABS: Glucose, Whole Blood 192 mg/dL (60-115)
[2023-12-03] MEDS: Omeprazole 20 MG CAPSULE.DR PO (06:32)
[2023-12-03] MEDS: glipiZIDE 5 MG TABLET PO (06:32)
[2023-12-03 08:00] VITALS: BP 132/69; PULSE 99; RESP 18; TEMP 37; O2SAT 96
[2023-12-03 08:28] LABS: INTERNATIONAL NORM RATIO 1.3 (0.9-1.1)
[2023-12-03] MEDS: Gabapentin 300 MG CAPSULE 900 MG PO ×3 (08:28→20:06)
[2023-12-03] MEDS: metFORMIN HCl 1,000 MG TABLET 1000 MG PO ×2 (08:28→20:07)
[2023-12-03] MEDS: Divalproex Sodium Sprinkles 125 MG CAP.DR.SPR PO ×3 (08:28→20:06)
[2023-12-03] MEDS: Aspirin 81 MG TAB.CHEW PO (08:28)
[2023-12-03] MEDS: Atorvastatin Calcium 40 MG TABLET PO (08:28)
--- NOTE | 2023-12-03 09:19 | HE.PHANOTE ---
patient INR is subtherapeutic. Messaged Md Cho and he says he will discuss with hospitalist
[2023-12-03] MEDS: Fenofibrate 160 MG TABLET PO (09:20)
--- NOTE | 2023-12-03 09:25 | P.PNPSI_ITS ---
Subjective Subjective Date of Service: 12/03/23 Reason For Visit: F25.9, F31.9 Subjective Notes: Conditional Voluntary Interim History: The nursing staff reported the patient had been anxious and restless at times. He is fasting blood sugar was 182 he slept 7 hours. On interview the patient denies new symptoms easily redirectable. Mental Status Exam Mental Status Exam Patient Appearance: Well Grooomed and Appropriate Patient Orientation: Person Level of Consciousness: Awake Patient Behavior: Guarded and Passive Mood Description: Withdrawn Affect Description: Calm Patient Cognition Impaired: Yes Ability to Follow Directions: Good Speech Pattern: Clear Hallucinations: None Delusions: Ideas of Reference Thought Process: Distracted and Evasive Thought Content: positive for [place] and positive for Poverty of Content Judgement: Poor Diagnostics Vital Signs (24Hr): Vital Signs - 24 hr 12/02/23 18:00 12/03/23 08:00 Temperature 98.1 F 98.6 F Pulse Rate 92 99 Respiratory Rate 18 18 Blood Pressure 148/67 H 132/69 Pulse Oximetry 96 96 Oxygen Delivery Method Room Air Room Air BMI result Body Mass Index 27.6 Labs 12/02/23 11:04 Labs: Laboratory Results - last 48 hr 12/02/23 12/02/23 12/02/23 11:04 12:36 23:00 Hold Purple Top PT 21.7 H D INR 1.8 H Sodium 136 Potassium 4.3 Chloride 101 Carbon Dioxide 28 Anion Gap 11 L BUN 15 Creatinine 0.78 Estim Creat Clear Calc 103.2 Estimated GFR > 60 POC Glucose 260 H Fasting Glucose 300 H Estimat Average Glucose 137 Hemoglobin A1c % 6.4 H Calcium 8.9 D Total Bilirubin 0.4 AST 15 ALT 12 Alkaline Phosphatase 54 Total Protein 6.3 L Albumin 3.7 Triglycerides 248 H Cholesterol 163 LDL Cholesterol, Calc 87 HDL Cholesterol 27 L 12/03/23 12/03/23 06:16 07:38 Hold Purple Top SEE NOTE PT 16.0 H D INR 1.3 H Sodium Potassium Chloride Carbon Dioxide Anion Gap BUN Creatinine Estim Creat Clear Calc Estimated GFR POC Glucose 192 H Fasting Glucose Estimat Average Glucose Hemoglobin A1c % Calcium Total Bilirubin AST ALT Alkaline Phosphatase Total Protein Albumin Triglycerides Cholesterol LDL Cholesterol, Calc HDL Cholesterol Medications Medications Current Medications Acetaminophen (Acetaminophen 325 Mg Tablet) 650 mg PO Q6H PRN PRN Reason: Headache/Pain Mild Scale (1-3) Last Admin: 12/02/23 17:44 Dose: 650 mg Al Hydroxide/Mg Hydroxide (Magnesium Hydrox/Alum Hydrox 30 Ml Oral.Susp) 30 ml PO Q6H PRN PRN Reason: Heartburn/Nausea Albuterol Sulfate (Albuterol Sulfate (0.083%) 2.5 Mg/3 Ml Vial.Neb) 2.5 mg INHALE Q4H PRN PRN Reason: Wheezing Aspirin (Aspirin 81 Mg Tab.Chew) 81 mg PO DAILY [facility] Last Admin: 12/03/23 08:28 Dose: 81 mg Atorvastatin Calcium (Atorvastatin Calcium 40 Mg Tablet) 40 mg PO DAILY [facility] Last Admin: 12/03/23 08:28 Dose: 40 mg Divalproex Sodium (Divalproex Sodium Sprinkles 125 Mg Cap.Spr) 125 mg PO TID [facility] Last Admin: 12/03/23 08:28 Dose: 125 mg Fenofibrate (Fenofibrate 160 Mg Tablet) 160 mg PO DAILY [facility] Last Admin: 12/03/23 09:20 Dose: 160 mg Gabapentin (Gabapentin 300 Mg Capsule) 900 mg PO TID [facility] Last Admin: 12/03/23 08:28 Dose: 900 mg Glipizide (Glipizide 5 Mg Tablet) 5 mg PO DAILY@0730 [facility] Last Admin: 12/03/23 06:32 Dose: 5 mg Hydroxyzine HCl (Hydroxyzine Hcl 25 Mg Tablet) 25 mg PO Q6H PRN PRN Reason: Anxiety Last Admin: 12/02/23 17:45 Dose: 25 mg Magnesium Hydroxide (Milk Of Magnesia 30 Ml Oral.Susp) 30 ml PO DAILY PRN PRN Reason: Constipation Melatonin (Melatonin 3 Mg Tablet) 6 mg PO BEDTIME [facility] Last Admin: 12/02/23 21:18 Dose: 6 mg Metformin HCl (Metformin Hcl 1,000 Mg Tablet) 1,000 mg PO BID [facility] Last Admin: 12/03/23 08:28 Dose: 1,000 mg Mirtazapine (Mirtazapine 7.5 Mg Tablet) 7.5 mg PO BEDTIME [facility] Last Admin: 12/02/23 21:18 Dose: 7.5 mg Nystatin (Nystatin Powder 15 Gm Bottle) 1 appl TOPICAL BID [facility]; Protocol Last Admin: 12/03/23 08:38 Dose: Not Given Olanzapine (Olanzapine 10 Mg Tablet) 20 mg PO BEDTIME [facility] Last Admin: 12/02/23 21:19 Dose: 20 mg Olanzapine (Olanzapine 5 Mg Tablet) 5 mg PO TID PRN PRN Reason: Anxiety Last Admin: 12/02/23 12:04 Dose: 5 mg Omeprazole (Omeprazole 20 Mg Capsule.Dr) 20 mg PO DAILY@0630 [facility] Last Admin: 12/03/23 06:32 Dose: 20 mg Trazodone HCl (Trazodone Hcl 100 Mg Tablet) 100 mg PO BEDTIME PRN PRN Reason: Insomnia Warfarin Sodium (Warfarin Sodium 4 Mg Tablet) 4 mg PO DAILY@1800 [facility] Last Admin: 12/02/23 17:18 Dose: 4 mg Allergies Allergies Allergy/AdvReac Type Severity Reaction Status Date / Time acetaminophen [From Vicodin] AdvReac Unknown Verified 12/01/23 19:50 bee pollen [bee stings] AdvReac Unknown Verified 12/01/23 19:50 haloperidol [From Haldol] AdvReac Unknown Verified 12/01/23 19:50 hydrocodone [From Vicodin] AdvReac Unknown Verified 12/01/23 19:50 lactose AdvReac Unknown Verified 12/01/23 19:50 lamotrigine [From Lamictal] AdvReac Unknown Verified 12/01/23 19:50 Assessment & Plan Assessment & Plan (1) Medical clearance for psychiatric admission: Status: Acute Code(s): Z00.8 - Encounter for other general examination Plan Pt is a 63-year-old male with a PMH significant for?wns-alvcbtf-zkhibfbzj type 2 diabetes, schizoaffective disorder, unspecified seizure disorder, mild cognitive impairment, mild intellectual disabilities, hyperlipidemia, hypertension, GERD, s/p AVR with mechanical valve anticoagulated with Coumadin and schizoaffective bipolar type who is admitted to [facility] for altered mental status with increased agitation and disorganized behavior. While at [facility] apparently was chemically restrained with droperidol and was found to be playing with his feces. Medical consult for admission H&P. Mood disorder Plan as per psychiatry Chronic musculoskeletal pain Acetaminophen or Motrin Subtherapeutic INR Patient with INR 1.8 at time of presentation S/P AVR with mechanical valve INR goal of 2.0-3.0 Continue Coumadin, follow INR Ikp-vngdrfl-jkiipldqr diabetes type 2 Continue glipizide, metformin Encouraged diabetic diet HLD Continue statin, fenofibrate Unspecified seizure disorder Continue Depakote GERD PPI Plan 1. Gather collateral information. 2. Continue with Zyprexa as an antipsychotic and PRNs. 3. Is start working on discharge planning Reason for continued inpatient stay Substantial Risk for: inability to function, rapid decompensation and med/psych decompensation Time Spent With Patient Time: Total time managing care of this patient today __20__ minutes.
[2023-12-03] MEDS: hydrOXYzine HCL 25 MG TABLET PO ×2 (12:09→20:08)
[2023-12-03] MEDS: OLANZapine 5 MG TABLET PO ×2 (12:09→21:44)
[2023-12-03] MEDS: Milk of Magnesia 30 ML ORAL.SUSP PO (13:52)
[2023-12-03 18:00] VITALS: BP 149/67; PULSE 95; RESP 18; TEMP 37; O2SAT 94
--- NOTE | 2023-12-03 18:08 | PC.NURSE ---
pt PT/INR 16.0/1.3 Dr Meyer aware referred to hospitalist waiting on orders.
[2023-12-03] MEDS: Warfarin Sodium 4 MG TABLET PO (18:12)
[2023-12-03 19:49] LABS: Glucose, Whole Blood 254 mg/dL (60-115)
[2023-12-03] MEDS: Melatonin 3 MG TABLET 6 MG PO (20:07)
[2023-12-03] MEDS: Mirtazapine 7.5 MG TABLET PO (20:07)
[2023-12-03] MEDS: OLANZapine 10 MG TABLET 20 MG PO (20:08)
[2023-12-03] MEDS: Acetaminophen 325 MG TABLET 650 MG PO (20:12)
[2023-12-03] MEDS: traZODone HCL 100 MG TABLET PO (21:44)
[2023-12-04 02:15] VITALS: BP 123/63; PULSE 89; RESP 17; O2SAT 92
[2023-12-04 02:16] LABS: Glucose, Whole Blood 229 mg/dL (60-115)
[2023-12-04] MEDS: Omeprazole 20 MG CAPSULE.DR PO (06:31)
[2023-12-04 06:39] LABS: Glucose, Whole Blood 208 mg/dL (60-115)
[2023-12-04 08:16] LABS: INTERNATIONAL NORM RATIO 1.4 (0.9-1.1); Prothrombin Time 16.7 SEC (11.1-13.3)
[2023-12-04 09:10] VITALS: BP 132/68; PULSE 90; RESP 18; TEMP 36.8; O2SAT 93
[2023-12-04] MEDS: Divalproex Sodium Sprinkles 125 MG CAP.DR.SPR PO ×3 (09:12→20:17)
[2023-12-04] MEDS: Gabapentin 300 MG CAPSULE 900 MG PO ×3 (09:12→20:17)
[2023-12-04] MEDS: Atorvastatin Calcium 40 MG TABLET PO (09:12)
[2023-12-04] MEDS: metFORMIN HCl 1,000 MG TABLET 1000 MG PO ×2 (09:12→20:17)
[2023-12-04] MEDS: Aspirin 81 MG TAB.CHEW PO (09:13)
[2023-12-04] MEDS: glipiZIDE 5 MG TABLET PO (09:13)
[2023-12-04] MEDS: Fenofibrate 160 MG TABLET PO (09:13)
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
[2023-12-04] MEDS: OLANZapine 5 MG TABLET PO ×2 (14:40→21:46)
[2023-12-04] MEDS: hydrOXYzine HCL 25 MG TABLET PO ×2 (14:40→20:18)
[2023-12-04] MEDS: Warfarin Sodium 4 MG TABLET PO (17:36)
[2023-12-04 18:00] VITALS: BP 134/67; PULSE 100; RESP 18; TEMP 36.2; O2SAT 93
[2023-12-04] MEDS: OLANZapine 10 MG TABLET 20 MG PO (20:17)
[2023-12-04] MEDS: Melatonin 3 MG TABLET 6 MG PO (20:17)
[2023-12-04] MEDS: Mirtazapine 7.5 MG TABLET PO (20:17)
[2023-12-04] MEDS: Acetaminophen 325 MG TABLET 650 MG PO (20:18)
[2023-12-04] MEDS: traZODone HCL 100 MG TABLET PO (20:18)
[2023-12-04 21:23] LABS: Glucose, Whole Blood 289 mg/dL (60-115)
[2023-12-05] MEDS: hydrOXYzine HCL 25 MG TABLET PO (03:07)
[2023-12-05] MEDS: Acetaminophen 325 MG TABLET 650 MG PO (03:09)
[2023-12-05 06:27] LABS: Glucose, Whole Blood 188 mg/dL (60-115)
[2023-12-05] MEDS: Omeprazole 20 MG CAPSULE.DR PO (06:30)
[2023-12-05 08:00] VITALS: BP 114/64; PULSE 99; RESP 18; TEMP 36.2; O2SAT 96
[2023-12-05] MEDS: Gabapentin 300 MG CAPSULE 900 MG PO ×3 (08:22→19:53)
[2023-12-05] MEDS: Aspirin 81 MG TAB.CHEW PO (08:22)
[2023-12-05] MEDS: metFORMIN HCl 1,000 MG TABLET 1000 MG PO ×2 (08:22→19:53)
[2023-12-05] MEDS: Atorvastatin Calcium 40 MG TABLET PO (08:22)
[2023-12-05] MEDS: Divalproex Sodium Sprinkles 125 MG CAP.DR.SPR PO ×3 (08:22→19:53)
[2023-12-05] MEDS: glipiZIDE 5 MG TABLET PO (08:23)
[2023-12-05] MEDS: Fenofibrate 160 MG TABLET PO (08:23)
[2023-12-05 08:35] LABS: INTERNATIONAL NORM RATIO 1.5 (0.9-1.1)
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
[2023-12-05] MEDS: Warfarin Sodium 4 MG TABLET PO (17:37)
[2023-12-05 19:51] LABS: Glucose, Whole Blood 192 mg/dL (60-115)
[2023-12-05] MEDS: OLANZapine 10 MG TABLET 20 MG PO (19:53)
[2023-12-05] MEDS: Mirtazapine 7.5 MG TABLET PO (19:54)
[2023-12-05] MEDS: traZODone HCL 100 MG TABLET PO (19:54)
[2023-12-05] MEDS: Melatonin 3 MG TABLET 6 MG PO (19:54)
[2023-12-05 20:52] VITALS: BP 114/58; PULSE 91; RESP 18; TEMP 36.8; O2SAT 96
[2023-12-06 05:57] LABS: Glucose, Whole Blood 219 mg/dL (60-115)
[2023-12-06 06:00] VITALS: BP 111/61; PULSE 94; RESP 16; TEMP 36.2; O2SAT 93
[2023-12-06] MEDS: Omeprazole 20 MG CAPSULE.DR PO (06:05)
[2023-12-06] MEDS: glipiZIDE 5 MG TABLET PO (08:22)
[2023-12-06] MEDS: Fenofibrate 160 MG TABLET PO (08:22)
[2023-12-06] MEDS: metFORMIN HCl 1,000 MG TABLET 1000 MG PO ×2 (08:22→20:47)
[2023-12-06] MEDS: Aspirin 81 MG TAB.CHEW PO (08:22)
[2023-12-06] MEDS: Atorvastatin Calcium 40 MG TABLET PO (08:22)
[2023-12-06] MEDS: Divalproex Sodium Sprinkles 125 MG CAP.DR.SPR PO ×3 (08:22→20:47)
[2023-12-06] MEDS: Gabapentin 300 MG CAPSULE 900 MG PO ×3 (08:23→20:47)
[2023-12-06 10:08] LABS: INTERNATIONAL NORM RATIO 1.7 (0.9-1.1)
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
[2023-12-06] MEDS: Warfarin Sodium 4 MG TABLET PO (16:57)
[2023-12-06 20:14] LABS: Glucose, Whole Blood 234 mg/dL (60-115)
[2023-12-06] MEDS: OLANZapine 10 MG TABLET 20 MG PO (20:47)
[2023-12-06] MEDS: Melatonin 3 MG TABLET 6 MG PO (20:47)
[2023-12-06] MEDS: Mirtazapine 7.5 MG TABLET PO (20:47)
[2023-12-06 21:12] VITALS: BP 146/65; PULSE 86; RESP 18; TEMP 36.1; O2SAT 97
[2023-12-07 06:06] LABS: Glucose, Whole Blood 192 mg/dL (60-115)
[2023-12-07] MEDS: Atorvastatin Calcium 40 MG TABLET PO (09:08)
[2023-12-07] MEDS: Omeprazole 20 MG CAPSULE.DR PO (09:08)
[2023-12-07] MEDS: metFORMIN HCl 1,000 MG TABLET 1000 MG PO ×2 (09:08→20:41)
[2023-12-07] MEDS: Aspirin 81 MG TAB.CHEW PO (09:09)
[2023-12-07] MEDS: Gabapentin 300 MG CAPSULE 900 MG PO ×3 (09:09→20:41)
[2023-12-07] MEDS: Fenofibrate 160 MG TABLET PO (09:09)
[2023-12-07] MEDS: glipiZIDE 5 MG TABLET PO (09:09)
[2023-12-07] MEDS: Divalproex Sodium Sprinkles 125 MG CAP.DR.SPR PO ×3 (09:09→20:41)
[2023-12-07 09:24] LABS: INTERNATIONAL NORM RATIO 2.2 (0.9-1.1); Prothrombin Time 26.2 SEC (11.1-13.3)
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
[2023-12-07] MEDS: Warfarin Sodium 4 MG TABLET PO (16:04)
[2023-12-07 18:00] VITALS: BP 133/57; PULSE 89; RESP 18; TEMP 36.8; O2SAT 94
[2023-12-07] MEDS: Mirtazapine 7.5 MG TABLET PO (20:41)
[2023-12-07] MEDS: Melatonin 3 MG TABLET 6 MG PO (20:41)
[2023-12-07] MEDS: OLANZapine 10 MG TABLET 20 MG PO (20:41)
[2023-12-07 21:34] LABS: Glucose, Whole Blood 243 mg/dL (60-115)
[2023-12-07] MEDS: Acetaminophen 325 MG TABLET 650 MG PO (22:07)
[2023-12-08] MEDS: Omeprazole 20 MG CAPSULE.DR PO (06:24)
[2023-12-08 06:50] LABS: Glucose, Whole Blood 192 mg/dL (60-115)
[2023-12-08 07:00] VITALS: BMI 29.0
[2023-12-08 08:00] VITALS: BP 123/81; PULSE 100; RESP 18; TEMP 36.8; O2SAT 95
[2023-12-08] MEDS: Fenofibrate 160 MG TABLET PO (08:14)
[2023-12-08] MEDS: Divalproex Sodium Sprinkles 125 MG CAP.DR.SPR PO ×3 (08:14→21:07)
[2023-12-08] MEDS: glipiZIDE 5 MG TABLET PO (08:14)
[2023-12-08] MEDS: Atorvastatin Calcium 40 MG TABLET PO (08:14)
[2023-12-08] MEDS: Aspirin 81 MG TAB.CHEW PO (08:14)
[2023-12-08] MEDS: Gabapentin 300 MG CAPSULE 900 MG PO ×3 (08:14→21:09)
[2023-12-08] MEDS: metFORMIN HCl 1,000 MG TABLET 1000 MG PO ×2 (08:14→21:09)
[2023-12-08 08:25] LABS: INTERNATIONAL NORM RATIO 2.2 (0.9-1.1); Prothrombin Time 26.8 SEC (11.1-13.3)
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
[2023-12-08] MEDS: Warfarin Sodium 4 MG TABLET PO (17:30)
[2023-12-08 18:00] VITALS: BP 139/65; PULSE 75; RESP 18; TEMP 36.7; O2SAT 97
[2023-12-08] MEDS: OLANZapine 10 MG TABLET 20 MG PO (21:07)
[2023-12-08] MEDS: traZODone HCL 100 MG TABLET PO (21:07)
[2023-12-08] MEDS: hydrOXYzine HCL 25 MG TABLET PO (21:08)
[2023-12-08] MEDS: Mirtazapine 7.5 MG TABLET PO (21:08)
[2023-12-08] MEDS: Melatonin 3 MG TABLET 6 MG PO (21:08)
[2023-12-08 21:34] LABS: Glucose, Whole Blood 242 mg/dL (60-115)
[2023-12-09] MEDS: Omeprazole 20 MG CAPSULE.DR PO (05:19)
[2023-12-09 06:29] LABS: Glucose, Whole Blood 285 mg/dL (60-115)
[2023-12-09 08:07] LABS: INTERNATIONAL NORM RATIO 2.3 (0.9-1.1); Prothrombin Time 27.6 SEC (11.1-13.3)
[2023-12-09 09:03] VITALS: BP 131/60; PULSE 97; RESP 17; TEMP 36.6; O2SAT 95
[2023-12-09] MEDS: Gabapentin 300 MG CAPSULE 900 MG PO ×3 (09:10→20:33)
[2023-12-09] MEDS: glipiZIDE 5 MG TABLET PO (09:10)
[2023-12-09] MEDS: Fenofibrate 160 MG TABLET PO (09:11)
[2023-12-09] MEDS: Aspirin 81 MG TAB.CHEW PO (09:11)
[2023-12-09] MEDS: Divalproex Sodium Sprinkles 125 MG CAP.DR.SPR PO ×3 (09:11→20:33)
[2023-12-09] MEDS: metFORMIN HCl 1,000 MG TABLET 1000 MG PO ×2 (09:11→20:33)
[2023-12-09] MEDS: Atorvastatin Calcium 40 MG TABLET PO (09:11)
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
[2023-12-09] MEDS: Warfarin Sodium 4 MG TABLET PO (17:26)
[2023-12-09 19:50] LABS: Glucose, Whole Blood 273 mg/dL (60-115)
[2023-12-09] MEDS: Melatonin 3 MG TABLET 6 MG PO (20:32)
[2023-12-09] MEDS: OLANZapine 10 MG TABLET 20 MG PO (20:32)
[2023-12-09] MEDS: Mirtazapine 7.5 MG TABLET PO (20:33)
[2023-12-09 20:35] VITALS: BP 134/93; PULSE 88; RESP 16; TEMP 36.6; O2SAT 94
[2023-12-10] MEDS: Omeprazole 20 MG CAPSULE.DR PO (05:42)
[2023-12-10 05:46] LABS: Glucose, Whole Blood 192 mg/dL (60-115)
[2023-12-10 07:11] LABS: INTERNATIONAL NORM RATIO 2.3 (0.9-1.1); Prothrombin Time 28.5 SEC (11.1-13.3)
[2023-12-10 07:53] LABS: Creatinine Clr Calc Pharmacy 128.5; Estimated Glomerular Filt Rate > 60
[2023-12-10 08:41] VITALS: BP 178/78; PULSE 92; RESP 18; TEMP 36.6; O2SAT 95
[2023-12-10] MEDS: glipiZIDE 5 MG TABLET PO (08:50)
[2023-12-10] MEDS: Gabapentin 300 MG CAPSULE 900 MG PO ×3 (08:50→20:42)
[2023-12-10] MEDS: Aspirin 81 MG TAB.CHEW PO (08:50)
[2023-12-10] MEDS: Atorvastatin Calcium 40 MG TABLET PO (08:50)
[2023-12-10] MEDS: Fenofibrate 160 MG TABLET PO (08:51)
[2023-12-10] MEDS: metFORMIN HCl 1,000 MG TABLET 1000 MG PO ×2 (08:51→20:41)
[2023-12-10] MEDS: Divalproex Sodium Sprinkles 125 MG CAP.DR.SPR PO ×3 (08:51→20:42)
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
[2023-12-10] MEDS: Warfarin Sodium 4 MG TABLET PO (15:54)
[2023-12-10 19:47] LABS: Glucose, Whole Blood 196 mg/dL (60-115)
[2023-12-10 20:18] VITALS: BP 123/59; PULSE 85; RESP 17; TEMP 36.8; O2SAT 94
[2023-12-10] MEDS: Melatonin 3 MG TABLET 6 MG PO (20:41)
[2023-12-10] MEDS: OLANZapine 10 MG TABLET 20 MG PO (20:42)
[2023-12-10] MEDS: Mirtazapine 7.5 MG TABLET PO (20:42)
[2023-12-11] MEDS: Omeprazole 20 MG CAPSULE.DR PO (05:37)
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
[2023-12-11 06:20] LABS: Glucose, Whole Blood 189 mg/dL (60-115)
[2023-12-11 07:16] LABS: INTERNATIONAL NORM RATIO 2.4 (0.9-1.1); Prothrombin Time 29.8 SEC (11.1-13.3)
[2023-12-11 07:55] VITALS: BP 137/65; PULSE 100; RESP 18; TEMP 36.9; O2SAT 94
[2023-12-11] MEDS: Divalproex Sodium Sprinkles 125 MG CAP.DR.SPR PO ×3 (08:20→19:55)
[2023-12-11] MEDS: Gabapentin 300 MG CAPSULE 900 MG PO ×3 (08:20→19:56)
[2023-12-11] MEDS: Atorvastatin Calcium 40 MG TABLET PO (08:20)
[2023-12-11] MEDS: Aspirin 81 MG TAB.CHEW PO (08:21)
[2023-12-11] MEDS: glipiZIDE 5 MG TABLET PO (08:21)
[2023-12-11] MEDS: Fenofibrate 160 MG TABLET PO (08:21)
[2023-12-11] MEDS: metFORMIN HCl 1,000 MG TABLET 1000 MG PO ×2 (08:21→19:55)
[2023-12-11 18:00] VITALS: BP 145/63; PULSE 86; RESP 18; TEMP 36.4
[2023-12-11] MEDS: Warfarin Sodium 4 MG TABLET PO (18:09)
[2023-12-11 19:29] LABS: Glucose, Whole Blood 251 mg/dL (60-115)
[2023-12-11] MEDS: Mirtazapine 7.5 MG TABLET PO (19:55)
[2023-12-11] MEDS: OLANZapine 10 MG TABLET 20 MG PO (19:55)
[2023-12-11] MEDS: Melatonin 3 MG TABLET 6 MG PO (19:56)
[2023-12-12] MEDS: Omeprazole 20 MG CAPSULE.DR PO (05:49)
[2023-12-12 06:02] LABS: Glucose, Whole Blood 183 mg/dL (60-115)
[2023-12-12 08:00] VITALS: BP 139/64; PULSE 89; RESP 16; TEMP 36.6; O2SAT 92
[2023-12-12] MEDS: metFORMIN HCl 1,000 MG TABLET 1000 MG PO ×2 (08:39→20:03)
[2023-12-12] MEDS: Divalproex Sodium Sprinkles 125 MG CAP.DR.SPR PO ×3 (08:39→20:02)
[2023-12-12] MEDS: Fenofibrate 160 MG TABLET PO (08:39)
[2023-12-12] MEDS: glipiZIDE 5 MG TABLET PO (08:39)
[2023-12-12] MEDS: Atorvastatin Calcium 40 MG TABLET PO (08:39)
[2023-12-12] MEDS: Gabapentin 300 MG CAPSULE 900 MG PO ×3 (08:39→20:01)
[2023-12-12] MEDS: Aspirin 81 MG TAB.CHEW PO (08:39)
[2023-12-12 08:42] LABS: INTERNATIONAL NORM RATIO 2.4 (0.9-1.1); Prothrombin Time 29.3 SEC (11.1-13.3)
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
[2023-12-12] MEDS: Warfarin Sodium 4 MG TABLET PO (17:30)
[2023-12-12] MEDS: Melatonin 3 MG TABLET 6 MG PO (20:02)
[2023-12-12] MEDS: OLANZapine 10 MG TABLET 20 MG PO (20:03)
[2023-12-12] MEDS: hydrOXYzine HCL 25 MG TABLET PO (20:03)
[2023-12-12] MEDS: Mirtazapine 7.5 MG TABLET PO (20:03)
[2023-12-12] MEDS: traZODone HCL 100 MG TABLET PO (20:03)
[2023-12-12 20:47] LABS: Glucose, Whole Blood 254 mg/dL (60-115)
[2023-12-13 06:00] VITALS: BP 126/61; PULSE 98; RESP 16; TEMP 36.6; O2SAT 93
[2023-12-13] MEDS: Omeprazole 20 MG CAPSULE.DR PO (06:24)
[2023-12-13 06:26] LABS: Glucose, Whole Blood 185 mg/dL (60-115)
[2023-12-13 08:03] LABS: INTERNATIONAL NORM RATIO 2.3 (0.9-1.1); Prothrombin Time 27.9 SEC (11.1-13.3)
[2023-12-13] MEDS: Gabapentin 300 MG CAPSULE 900 MG PO ×3 (08:36→21:02)
[2023-12-13] MEDS: metFORMIN HCl 1,000 MG TABLET 1000 MG PO ×2 (08:37→21:03)
[2023-12-13] MEDS: glipiZIDE 5 MG TABLET PO (08:37)
[2023-12-13] MEDS: Atorvastatin Calcium 40 MG TABLET PO (08:37)
[2023-12-13] MEDS: Fenofibrate 160 MG TABLET PO (08:37)
[2023-12-13] MEDS: Divalproex Sodium Sprinkles 125 MG CAP.DR.SPR PO ×3 (08:37→21:02)
[2023-12-13] MEDS: Aspirin 81 MG TAB.CHEW PO (08:38)
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
[2023-12-13] MEDS: Warfarin Sodium 4 MG TABLET PO (17:45)
[2023-12-13 18:00] VITALS: BP 136/61; PULSE 62; RESP 16; TEMP 36.6; O2SAT 96
[2023-12-13 20:15] LABS: Glucose, Whole Blood 232 mg/dL (60-115)
[2023-12-13] MEDS: Mirtazapine 7.5 MG TABLET PO (21:00)
[2023-12-13] MEDS: hydrOXYzine HCL 25 MG TABLET PO (21:03)
[2023-12-13] MEDS: traZODone HCL 100 MG TABLET PO (21:03)
[2023-12-13] MEDS: OLANZapine 10 MG TABLET 20 MG PO (21:03)
[2023-12-13] MEDS: Melatonin 3 MG TABLET 6 MG PO (21:03)
--- NOTE | 2023-12-14 | ECG_ITS ---
Test Reason : chest pain Blood Pressure : / mmHG Vent. Rate : 087 BPM Atrial Rate : 087 BPM P-R Int : 148 ms QRS Dur : 094 ms QT Int : 380 ms P-R-T Axes : 080 075 092 degrees QTc Int : 457 ms Normal sinus rhythm Possible Left atrial enlargement Borderline ECG When compared with ECG of 02-DEC-2023 14:06, No significant change was found Referred By: Saurabh Lewis Electronically Signed By:Ld Ramsay
[2023-12-14 06:00] VITALS: BP 128/55; PULSE 84; RESP 16; TEMP 36.7; O2SAT 93
[2023-12-14 06:27] LABS: Glucose, Whole Blood 171 mg/dL (60-115)
[2023-12-14] MEDS: Omeprazole 20 MG CAPSULE.DR PO (07:09)
[2023-12-14] MEDS: metFORMIN HCl 1,000 MG TABLET 1000 MG PO ×2 (09:28→20:24)
[2023-12-14] MEDS: Atorvastatin Calcium 40 MG TABLET PO (09:28)
[2023-12-14] MEDS: Divalproex Sodium Sprinkles 125 MG CAP.DR.SPR PO ×3 (09:28→20:25)
[2023-12-14] MEDS: Gabapentin 300 MG CAPSULE 900 MG PO ×3 (09:28→20:24)
[2023-12-14] MEDS: glipiZIDE 5 MG TABLET PO (09:28)
[2023-12-14] MEDS: Fenofibrate 160 MG TABLET PO (09:28)
[2023-12-14] MEDS: Aspirin 81 MG TAB.CHEW PO (09:52)
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
[2023-12-14 16:01] LABS: INTERNATIONAL NORM RATIO 2.5 (0.9-1.1); Prothrombin Time 30.5 SEC (11.1-13.3)
[2023-12-14 16:16] LABS: Troponin-I High Sensitivity < 2.7 ng/L (<3.5-35.0)
[2023-12-14] MEDS: Warfarin Sodium 4 MG TABLET PO (16:59)
[2023-12-14 18:00] VITALS: BP 129/62; PULSE 81; RESP 18; TEMP 36.6; O2SAT 92
[2023-12-14] MEDS: Melatonin 3 MG TABLET 6 MG PO (20:24)
[2023-12-14] MEDS: OLANZapine 10 MG TABLET 20 MG PO (20:25)
[2023-12-14] MEDS: Mirtazapine 7.5 MG TABLET PO (20:25)
[2023-12-14 21:16] LABS: Glucose, Whole Blood 265 mg/dL (60-115)
[2023-12-14] MEDS: Acetaminophen 325 MG TABLET 650 MG PO (22:18)
[2023-12-14] MEDS: traZODone HCL 100 MG TABLET PO (22:19)
[2023-12-14] MEDS: hydrOXYzine HCL 25 MG TABLET PO (22:19)
[2023-12-15] MEDS: Omeprazole 20 MG CAPSULE.DR PO (06:26)
[2023-12-15 06:29] LABS: Glucose, Whole Blood 176 mg/dL (60-115)
[2023-12-15 07:00] VITALS: BMI 28.2
[2023-12-15 08:14] LABS: INTERNATIONAL NORM RATIO 2.8 (0.9-1.1); Prothrombin Time 34.7 SEC (11.1-13.3)
[2023-12-15 08:52] VITALS: BP 141/62; PULSE 88; RESP 18; TEMP 36.4; O2SAT 95
[2023-12-15] MEDS: metFORMIN HCl 1,000 MG TABLET 1000 MG PO ×2 (08:55→20:29)
[2023-12-15] MEDS: Atorvastatin Calcium 40 MG TABLET PO (08:55)
[2023-12-15] MEDS: Divalproex Sodium Sprinkles 125 MG CAP.DR.SPR PO ×3 (08:55→20:29)
[2023-12-15] MEDS: Aspirin 81 MG TAB.CHEW PO (08:55)
[2023-12-15] MEDS: Fenofibrate 160 MG TABLET PO (08:55)
[2023-12-15] MEDS: Gabapentin 300 MG CAPSULE 900 MG PO ×3 (08:56→20:28)
[2023-12-15] MEDS: glipiZIDE 5 MG TABLET PO (08:56)
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
[2023-12-15] MEDS: Warfarin Sodium 4 MG TABLET PO (17:04)
[2023-12-15 20:01] LABS: Glucose, Whole Blood 219 mg/dL (60-115)
[2023-12-15 20:27] VITALS: BP 126/80; PULSE 88; RESP 16; TEMP 36.1; O2SAT 93
[2023-12-15] MEDS: OLANZapine 10 MG TABLET 20 MG PO (20:29)
[2023-12-15] MEDS: Mirtazapine 7.5 MG TABLET PO (20:29)
[2023-12-15] MEDS: Melatonin 3 MG TABLET 6 MG PO (20:29)
[2023-12-15] MEDS: Acetaminophen 325 MG TABLET 650 MG PO (23:41)
[2023-12-16 05:58] LABS: Glucose, Whole Blood 169 mg/dL (60-115)
[2023-12-16] MEDS: Omeprazole 20 MG CAPSULE.DR PO (06:00)
[2023-12-16] MEDS: Divalproex Sodium Sprinkles 125 MG CAP.DR.SPR PO (08:21)
[2023-12-16] MEDS: glipiZIDE 5 MG TABLET PO (08:21)
[2023-12-16] MEDS: metFORMIN HCl 1,000 MG TABLET 1000 MG PO (08:21)
[2023-12-16] MEDS: Aspirin 81 MG TAB.CHEW PO (08:21)
[2023-12-16] MEDS: Atorvastatin Calcium 40 MG TABLET PO (08:21)
[2023-12-16] MEDS: Gabapentin 300 MG CAPSULE 900 MG PO (08:21)
[2023-12-16] MEDS: Fenofibrate 160 MG TABLET PO (08:21)
--- NOTE | 2023-12-16 08:27 | P.DS_ITS ---
DS: Providers Provider Date of Service: 12/16/23 Date of admission: 12/01/23 17:09 Date of discharge: 12/16/23 Primary care physician: Sotero Son MD Consults: 12/01/23 18:52 Consult to Hospitalist Routine Comment: Consulting Provider: Hospitalist Reason For Exam: outside admit. H&P DS: Diagnosis Discharge Diagnosis (1) Schizoaffective disorder: Status: Acute DS: Medications Discharge Medications Home Medications: Home Medications ?Medication ?Instructions ?Recorded ?Confirmed aspirin 81 mg chewable tablet 1 tab PO DAILY 08/09/23 12/01/23 atorvastatin 40 mg tablet 40 mg PO DAILY 08/09/23 12/01/23 divalproex 125 mg tablet,delayed 375 mg PO TID 08/09/23 12/02/23 release fenofibrate nanocrystallized 145 145 mg PO DAILY 08/09/23 12/01/23 mg tablet glipizide 5 mg tablet 5 mg PO DAILY@0730 08/09/23 12/01/23 melatonin 3 mg tablet 6 mg PO BEDTIME 08/09/23 12/01/23 nystatin 100,000 unit/gram topical 1 appl topical BID 08/09/23 12/01/23 powder (Nystop) olanzapine 20 mg tablet 20 mg PO BEDTIME 08/09/23 12/01/23 warfarin 4 mg tablet 4 mg PO DAILY 08/09/23 12/01/23 gabapentin 300 mg capsule 900 mg PO TID 12/01/23 12/01/23 mirtazapine 7.5 mg tablet 7.5 mg PO BEDTIME 12/01/23 12/01/23 olanzapine 5 mg tablet 5 mg PO TID PRN Anxiety 12/01/23 12/01/23 pantoprazole 20 mg tablet,delayed 20 mg PO DAILY 12/01/23 12/01/23 release albuterol sulfate 2.5 mg/3 mL 2.5 mg inhalation Q4H PRN Wheezing 12/02/23 12/02/23 (0.083 %) solution for nebulization metformin 1,000 mg tablet 1,000 mg PO BID 12/02/23 12/02/23 trazodone 100 mg tablet 100 mg PO BEDTIME PRN Insomnia 12/02/23 12/01/23 Mental Status Exam Mental Status Exam Patient Appearance: Well Grooomed and Appropriate Patient Orientation: Person and Situation Level of Consciousness: Awake Patient Behavior: Cooperative Mood Description: Calm Affect Description: Blunted Patient Cognition Impaired: Yes Ability to Follow Directions: Good Speech Pattern: Appropriate Hallucinations: None Delusions: Not Present Thought Process: Distracted and Slowed Thinking Thought Content: positive for [place] and positive for Poverty of Content Judgement: Fair Data Data Completed and Pending Completed studies during hospitalization [Text1]: 12/09/23 12/10/23 12/10/23 19:41 05:35 06:47 Hold Purple Top PT 28.5 H INR 2.3 H Creatinine Estim Creat Clear Calc Estimated GFR POC Glucose 273 H 192 H Troponin I High Sens 12/10/23 12/10/23 12/11/23 07:23 19:41 06:05 Hold Purple Top SEE NOTE PT INR Creatinine 0.69 Estim Creat Clear Calc 128.5 Estimated GFR > 60 POC Glucose 196 H 189 H Troponin I High Sens 12/11/23 12/11/23 12/12/23 06:56 19:22 05:31 Hold Purple Top PT 29.8 H INR 2.4 H Creatinine Estim Creat Clear Calc Estimated GFR POC Glucose 251 H 183 H Troponin I High Sens 12/12/23 12/12/23 12/13/23 08:29 19:59 06:12 Hold Purple Top PT 29.3 H INR 2.4 H Creatinine Estim Creat Clear Calc Estimated GFR POC Glucose 254 H 185 H Troponin I High Sens 12/13/23 12/13/23 12/14/23 07:42 20:03 06:15 Hold Purple Top SEE NOTE PT 27.9 H INR 2.3 H Creatinine Estim Creat Clear Calc Estimated GFR POC Glucose 232 H 171 H Troponin I High Sens 12/14/23 12/14/23 12/14/23 15:29 15:45 20:54 Hold Purple Top SEE NOTE PT 30.5 H INR 2.5 H Creatinine Estim Creat Clear Calc Estimated GFR POC Glucose 265 H Troponin I High Sens < 2.7 D 12/15/23 12/15/23 12/15/23 06:16 07:50 19:50 Hold Purple Top PT 34.7 H INR 2.8 H Creatinine Estim Creat Clear Calc Estimated GFR POC Glucose 176 H 219 H Troponin I High Sens 12/16/23 12/16/23 05:45 07:55 Hold Purple Top PT Pending INR Pending Creatinine Estim Creat Clear Calc Estimated GFR POC Glucose 169 H Troponin I High Sens DS: Summary Hospital Course Hospital Course: The patient is a 63-year-old male, single, with no children, unemployed on disability with a prior diagnosis of schizoaffective disorder bipolar type and developmental disorder, who lives by himself in a rented apartment with [employer] and [facility] services. His case managed by [facility]. The patient was brought to the emergency room of [facility] due to change of mental status with agitation and disorganized behavior. The patient was initially assessed at the emergency room of the hospital, he was seen by crisis team and chemically restrain with droperidol. While he was in the ED, he was disorganized playing with feces. Please see the HPI of the admission note for further details. On intake, we decided to continue with her regular medications. We contact collateral information such as the [facility] case management and it was clear that the patient decompensated in the last weeks. We restarted his regular antipsychotics and he was pleasant cooperative with no evidence of di sorientation. Sometimes was sexually inappropriate but easily redirected by the staff. We gather collateral information apparently the sexually inappropriate behavior is chronic. We contact also his sister who was advocating him to be in a penitentiary or long-term facility. The patient improved , fully compliant with treatment, he was able to participate in some groups but it was evident that he has a mild cognitive impairment. We had several meetings with caregivers, [facility] and her sister and since the patient was back at baseline he was going to be discharged to the community. [facility] is aware that eventually the patient will need long-term care. At this moment the patient has several ancillary services such as 37.5 hours of [employer] and [employer]. Since there were no safety concerns discharge planning was discussed. Time spent discussing smoking cessation with patient: 3 to 10 minutes Status at Discharge Cognitive/behavioral status at discharge: Impaired at baseline Functional status at discharge: independent ambulation Overall status at discharge: patient is back to baseline Time Spent with Patient Time attestation: Total time managing care of this patient today __30__ minutes. Time spent: Less than 30 minutes Discharge Plan Discharge Anticipated Discharge Date/Time: 12/16/23 11:00 Patient Disposition: Home, Self-Care Discharge Diagnosis: Schizoaffective disorder Referrals: [facility]: Dr. Galan (psychiatry) [Other] - 12/26/23 9:30 am (Hospital Discharge Appointment Appointment in person at [facility] in [place], [place]) Sotero Son MD [Primary Care Provider] - 12/22/23 9:20 am (Your follow has been scheduled via Tele visit with Dr. Son on 12/22/23 at 9:20am. Your doctors office will call you on or before your scheduled time.) Discharge Medications: New fenofibrate 160 mg Tablet 160 mg PO DAILY 30 Days Qty: 30 0RF Continued atorvastatin 40 mg tablet 40 mg PO DAILY 30 Days Qty: 30 0RF albuterol sulfate 2.5 mg /3 mL (0.083 %) Solution For Nebulization 2.5 mg INHALATION Q4H PRN (Reason: Wheezing) 30 Days Qty: 30 0RF olanzapine 5 mg tablet 5 mg PO TID PRN (Reason: Anxiety) 30 Days Qty: 30 0RF melatonin 3 mg tablet 6 mg PO BEDTIME 30 Days Qty: 60 0RF warfarin 4 mg tablet 4 mg PO DAILY 30 Days Qty: 30 0RF pantoprazole 20 mg tablet,delayed release (DR/EC) 20 mg PO DAILY 30 Days Qty: 30 0RF metformin 1,000 mg Tablet 1,000 mg PO BID 30 Days Qty: 60 0RF divalproex 125 mg tablet,delayed release (DR/EC) 375 mg PO TID 30 Days Qty: 270 0RF Rx Instructions: TOTAL DOSE 375 MG TID aspirin 81 mg tablet,chewable 1 tab PO DAILY 30 Days Qty: 30 0RF olanzapine 20 mg tablet 20 mg PO BEDTIME 30 Days Qty: 30 0RF glipizide 5 mg tablet 5 mg PO DAILY@0730 30 Days Qty: 30 0RF mirtazapine 7.5 mg tablet 7.5 mg PO BEDTIME 30 Days Qty: 30 0RF Changed trazodone 100 mg tablet 100 mg PO BEDTIME PRN (Reason: Insomnia) 30 Days Qty: 30 0RF gabapentin 300 mg capsule 900 mg PO TID 30 Days Qty: 270 0RF Discontinued nystatin [Nystop] 100,000 unit/gram powder 1 appl topical BID fenofibrate nanocrystallized 145 mg tablet 145 mg PO DAILY Discharge Orders: Discharge Order (Routine); Ordered 12/16/23 Ordered By: Saurabh Lewis Diet: Advance to usual diet Activity on Discharge: As tolerated Stand Alone Forms: Patient Portal Discharge page Print Language: Yoruba Care Plan Goals: Care plan goals achieved in this admission Health Concerns: Continue treatment with outpatient providers Plan of Treatment: Continue psychiatric treatment by [facility] and other providers. Assessment: Elderly male with a history of schizoaffective disorder who was brought to the facility due to exacerbation of psychosis. He was restarted on h is regular medications and he went back to his baseline at this moment no safety concerns ready for discharge.
[2023-12-16 08:28] LABS: INTERNATIONAL NORM RATIO 2.8 (0.9-1.1); Prothrombin Time 34.7 SEC (11.1-13.3)
== END 2023-12-16 11:25 | disposition home or self-care (01) | DRG 885 ==
PROVIDERS: Family Medicine; Internal Medicine; Registered Nurse; Social Worker; Admitting Provider Psychiatry & Neurology Psychiatry; PCP Internal Medicine; Visit Provider Psychiatry & Neurology Psychiatry
DX: F25.0 Schizoaffective disorder, bipolar type (principal); G40.909 Epilepsy, unspecified, not intractable, without status epilepticus; E11.9 Type 2 diabetes mellitus without complications; K21.9 Gastro-esophageal reflux disease without esophagitis; G89.29 Other chronic pain; E78.5 Hyperlipidemia, unspecified; R79.1 Abnormal coagulation profile; Z95.2 Presence of prosthetic heart valve; Z79.01 Long term (current) use of anticoagulants; Z79.82 Long term (current) use of aspirin; Z79.84 Long term (current) use of oral hypoglycemic drugs; Z79.85 Long-term (current) use of injectable non-insulin antidiabetic drugs; Z79.899 Other long term (current) drug therapy
CPT/HCPCS: 36415; 80053; 80061; 82565; 82947; 83036; 84484; 85610; 93005

== ENCOUNTER → 2023-12-01 17:09 | Outpatient (BNV) | payer OTHER, SELFPAY | PROVIDERS: Admitting Provider Psychiatry & Neurology Psychiatry; PCP Internal Medicine; Visit Provider Psychiatry & Neurology Psychiatry | DX: F25.0 Schizoaffective disorder, bipolar type (principal) | CPT/HCPCS: 90792; 99231; 99232; 99238 ==

== ENCOUNTER → 2023-12-01 17:09 | Outpatient (BNV) | payer OTHER, SELFPAY | PROVIDERS: Admitting Provider Psychiatry & Neurology Psychiatry; PCP Internal Medicine; Visit Provider Student in an Organized Health Care Education/Training Program | DX: Z02.2 Encounter for examination for admission to residential institution (principal) | CPT/HCPCS: 99429 ==